=== PATIENT | female | born 1960 | race Caucasian/White ===

== ENCOUNTER 2019-10-24 08:34 | Outpatient (RCR) | payer MEDICAID, SELFPAY | END 2019-10-25 00:01 | LOC: WOUND 08:34 | PROVIDERS: Family Provider Family Medicine; Visit Provider Nurse Practitioner Family | DX: Z09 Encounter for follow-up examination after completed treatment for conditions other than malignant neoplasm (principal) | CPT/HCPCS: 29581 ×4; 99212 ==

== ENCOUNTER 2019-11-22 07:56 | Outpatient (RCR) | payer MEDICAID, SELFPAY | END 2019-11-25 23:59 | disposition home or self-care (01) | LOC: WOUND 07:56 | PROVIDERS: Family Provider Family Medicine; PCP Family Medicine; Visit Provider Thoracic Surgery (Cardiothoracic Vascular Surgery) | DX: I87.2 Venous insufficiency (chronic) (peripheral) (principal); L97.812 Non-pressure chronic ulcer of other part of right lower leg with fat layer exposed | CPT/HCPCS: 11042; 11045; 29581; 99214 ==

== ENCOUNTER 2019-12-21 08:31 | Outpatient (RCR) | payer MEDICAID, SELFPAY | END 2019-12-24 23:59 | disposition home or self-care (01) | LOC: WOUND 08:31 | PROVIDERS: Family Provider Family Medicine; PCP Family Medicine; Visit Provider Nurse Practitioner Family | DX: I87.2 Venous insufficiency (chronic) (peripheral) (principal); L97.812 Non-pressure chronic ulcer of other part of right lower leg with fat layer exposed; L97.822 Non-pressure chronic ulcer of other part of left lower leg with fat layer exposed | CPT/HCPCS: 29581; 99214 ==

== ENCOUNTER 2020-01-18 08:41 | Outpatient (RCR) | payer MEDICAID, SELFPAY | END 2020-01-24 23:59 | disposition home or self-care (01) | LOC: WOUND 08:41 | PROVIDERS: Family Provider Family Medicine; PCP Family Medicine; Visit Provider Nurse Practitioner Family | DX: L02.416 Cutaneous abscess of left lower limb (principal) | CPT/HCPCS: 11042; 29581; 99211; 99212; L4387 ==

== ENCOUNTER 2020-02-22 08:08 | Outpatient (RCR) | payer MEDICAID, SELFPAY | END 2020-02-23 23:59 | disposition home or self-care (01) | LOC: WOUND 08:08 | PROVIDERS: Family Provider Family Medicine; PCP Family Medicine; Visit Provider Thoracic Surgery (Cardiothoracic Vascular Surgery) | DX: I87.2 Venous insufficiency (chronic) (peripheral) (principal); L97.822 Non-pressure chronic ulcer of other part of left lower leg with fat layer exposed; L02.416 Cutaneous abscess of left lower limb | CPT/HCPCS: 11042 ==

== ENCOUNTER 2020-02-29 08:47 | Outpatient (CLI) | payer MEDICAID, SELFPAY | END 2020-02-29 08:48 | disposition home or self-care (01) | LOC: WOUND 08:47 | PROVIDERS: Family Provider Family Medicine; PCP Family Medicine; Visit Provider Thoracic Surgery (Cardiothoracic Vascular Surgery) | DX: I87.2 Venous insufficiency (chronic) (peripheral) (principal); L97.822 Non-pressure chronic ulcer of other part of left lower leg with fat layer exposed; L97.812 Non-pressure chronic ulcer of other part of right lower leg with fat layer exposed | CPT/HCPCS: 11042 ==

== ENCOUNTER 2020-03-07 08:38 | Outpatient (CLI) | payer MEDICAID, SELFPAY | END 2020-03-07 08:39 | disposition home or self-care (01) | LOC: WOUND 08:39 | PROVIDERS: Family Provider Family Medicine; PCP Family Medicine; Visit Provider Thoracic Surgery (Cardiothoracic Vascular Surgery) | DX: I87.2 Venous insufficiency (chronic) (peripheral) (principal); L97.822 Non-pressure chronic ulcer of other part of left lower leg with fat layer exposed; L97.812 Non-pressure chronic ulcer of other part of right lower leg with fat layer exposed | CPT/HCPCS: 11042 ==

== ENCOUNTER 2020-03-14 08:23 | Outpatient (CLI) | payer MEDICAID, SELFPAY | END 2020-03-14 08:24 | disposition home or self-care (01) | LOC: WOUND 08:24 | PROVIDERS: Family Provider Family Medicine; PCP Family Medicine; Visit Provider Thoracic Surgery (Cardiothoracic Vascular Surgery) | DX: I87.2 Venous insufficiency (chronic) (peripheral) (principal); L97.822 Non-pressure chronic ulcer of other part of left lower leg with fat layer exposed | CPT/HCPCS: 11042 ==

== ENCOUNTER 2020-03-21 08:29 | Outpatient (RCR) | payer MEDICAID, SELFPAY | END 2020-03-25 23:59 | disposition home or self-care (01) | LOC: WOUND 08:29 | PROVIDERS: Family Provider Family Medicine; PCP Family Medicine; Visit Provider Thoracic Surgery (Cardiothoracic Vascular Surgery) | DX: I87.2 Venous insufficiency (chronic) (peripheral) (principal); L97.822 Non-pressure chronic ulcer of other part of left lower leg with fat layer exposed | CPT/HCPCS: 11042 ==

== ENCOUNTER 2020-03-28 08:24 | Outpatient (CLI) | payer MEDICAID, SELFPAY | END 2020-03-28 08:25 | disposition home or self-care (01) | LOC: WOUND 08:25 | PROVIDERS: Family Provider Family Medicine; PCP Family Medicine; Visit Provider Thoracic Surgery (Cardiothoracic Vascular Surgery) | DX: I87.2 Venous insufficiency (chronic) (peripheral) (principal); L97.822 Non-pressure chronic ulcer of other part of left lower leg with fat layer exposed | CPT/HCPCS: 97597; A6530; A6545 ==

== ENCOUNTER 2020-04-04 08:32 | Outpatient (CLI) | payer MEDICAID, SELFPAY | END 2020-04-04 08:33 | disposition home or self-care (01) | LOC: WOUND 08:33 | PROVIDERS: Family Provider Family Medicine; PCP Family Medicine; Visit Provider Thoracic Surgery (Cardiothoracic Vascular Surgery) | DX: I87.2 Venous insufficiency (chronic) (peripheral) (principal); L97.822 Non-pressure chronic ulcer of other part of left lower leg with fat layer exposed | CPT/HCPCS: 97597 ==

== ENCOUNTER 2020-04-11 08:27 | Outpatient (CLI) | payer MEDICAID, SELFPAY | END 2020-04-11 08:28 | disposition home or self-care (01) | LOC: WOUND 08:30 | PROVIDERS: Family Provider Family Medicine; PCP Family Medicine; Visit Provider Thoracic Surgery (Cardiothoracic Vascular Surgery) | DX: Z09 Encounter for follow-up examination after completed treatment for conditions other than malignant neoplasm (principal) | CPT/HCPCS: 99212 ==

== ENCOUNTER 2020-05-02 15:27 | Outpatient (CLI) | payer MEDICAID, SELFPAY | END 2020-05-02 15:28 | disposition home or self-care (01) | LOC: WOUND 15:27 | PROVIDERS: Family Provider Family Medicine; PCP Family Medicine; Visit Provider Thoracic Surgery (Cardiothoracic Vascular Surgery) | DX: I87.2 Venous insufficiency (chronic) (peripheral) (principal); L97.822 Non-pressure chronic ulcer of other part of left lower leg with fat layer exposed | CPT/HCPCS: 97597 ==

== ENCOUNTER 2020-05-09 14:36 | Outpatient (CLI) | payer MEDICAID, SELFPAY | END 2020-05-09 14:37 | disposition home or self-care (01) | LOC: WOUND 14:39 | PROVIDERS: Family Provider Family Medicine; PCP Family Medicine; Visit Provider Emergency Medicine | DX: Z51.89 Encounter for other specified aftercare (principal) | CPT/HCPCS: 29581; 99213 ==

== ENCOUNTER 2020-05-16 13:04 | Outpatient (CLI) | payer MEDICAID, SELFPAY | END 2020-05-16 13:05 | disposition home or self-care (01) | LOC: WOUND 13:05 | PROVIDERS: Family Provider Family Medicine; PCP Family Medicine; Visit Provider Emergency Medicine | DX: I87.2 Venous insufficiency (chronic) (peripheral) (principal); L97.822 Non-pressure chronic ulcer of other part of left lower leg with fat layer exposed | CPT/HCPCS: 29581 ==

== ENCOUNTER 2020-05-23 13:22 | Outpatient (CLI) | payer MEDICAID, SELFPAY | END 2020-05-23 13:23 | disposition home or self-care (01) | LOC: WOUND 13:32 | PROVIDERS: Family Provider Family Medicine; PCP Family Medicine; Visit Provider Emergency Medicine | DX: I87.2 Venous insufficiency (chronic) (peripheral) (principal); L97.822 Non-pressure chronic ulcer of other part of left lower leg with fat layer exposed | CPT/HCPCS: 11042 ==

== ENCOUNTER 2020-05-30 09:38 | Outpatient (CLI) | payer MEDICAID, SELFPAY | END 2020-05-30 09:39 | disposition home or self-care (01) | LOC: WOUND 09:38 | PROVIDERS: Family Provider Family Medicine; PCP Family Medicine; Visit Provider Nurse Practitioner Family | DX: Z09 Encounter for follow-up examination after completed treatment for conditions other than malignant neoplasm (principal) | CPT/HCPCS: 29581 ==

== ENCOUNTER → 2020-06-04 12:14 | Outpatient (BNVA) | payer MEDICAID, SELFPAY | PROVIDERS: Family Provider Family Medicine; PCP Family Medicine; Visit Provider Family Medicine | DX: H66.001 Acute suppurative otitis media without spontaneous rupture of ear drum, right ear (principal); E78.5 Hyperlipidemia, unspecified; I73.9 Peripheral vascular disease, unspecified | CPT/HCPCS: 80053; 80061; 84443; 85025 ==

== ENCOUNTER 2020-06-06 08:38 | Outpatient (CLI) | payer MEDICAID, SELFPAY | END 2020-06-06 08:39 | disposition home or self-care (01) | LOC: WOUND 08:40 | PROVIDERS: Family Provider Family Medicine; PCP Family Medicine; Visit Provider Thoracic Surgery (Cardiothoracic Vascular Surgery) | DX: I87.2 Venous insufficiency (chronic) (peripheral) (principal); L97.522 Non-pressure chronic ulcer of other part of left foot with fat layer exposed | CPT/HCPCS: 29581 ==

== ENCOUNTER 2020-07-01 14:45 | Emergency (ER) | payer MEDICAID, SELFPAY ==
[2020-07-01 14:52] VITALS: BP 159/95; PULSE 85; RESP 16; TEMP 36.4; O2SAT 98; BMI 53.1
--- NOTE | 2020-07-01 14:53 | XRR_ITS ---
PROCEDURE INFORMATION: Exam: XR Left Knee Exam date and time: 07/01/2020 3:19 PM Age: 60 years old Clinical indication: Pain and injury or trauma; Injury history: Not specified; Initial encounter; Blunt trauma; Knee; Left; Additional info: Injury/pain TECHNIQUE: Imaging protocol: XR Left knee. Views: 3 views. COMPARISON: CT Low Extremity w LEFT [id number] 06/26/2017 11:18 PM FINDINGS: Bones/joints: There is a moderate loss of joint space seen within the medial compartment of the left knee compatible with degenerative joint disease. Soft tissues: Normal. XR/XR knee LT 3V* [id number] IMPRESSION: There are no acute osseous findings.
--- NOTE | 2020-07-01 14:53 | W.ED.LOWEXIN ---
HPI - Extremity Injury (Lower) General: Chief Complaint: Extremity Injury, Lower Stated Complaint: fall/left knee pain Time Seen by Provider: 07/01/20 14:49 Source: patient Mode of arrival: wheelchair Limitations: no limitations History of Present Illness: HPI Narrative: Patient is a 60-year-old morbidly obese female here for complaints of a left knee injury that happened yesterday. Patient tells me she was in her home when her shoe got caught on the lip of an uneven surface causing her to fall. Patient states she caught herself but states her left knee jammed into or between 2 objects. She has no other complaints. There were no other injury sustained during the fall. She has continued to be ambulatory on the knee-just with pain. MD complaint: knee injury Place: home Relieving factors: immobilization Exacerbating factors: weight bearing, movement and palpation Context: fall Other symptoms: none Review of Systems Musc: Reports: joint pain (L knee pain) PFS ED PFSH: Medical History (Updated 07/01/20 @ 15:29 by CHRISTIANE Nava) DJD (degenerative joint disease), lumbar DVT (deep venous thrombosis) Dyslipidemia History of DVT of lower extremity HTN (hypertension) Narcolepsy Obesity BROWN (obstructive sleep apnea) Surgical History Post corneal transplant S/P section S/P IVC filter Status post tubal ligation Family History Other Cancer Diabetes Hyperlipidemia Hypertension Stroke Social History Smoking and tobacco status: current every day smoker cigarettes [ Other cigarette details: she is working on quitting ] Second hand smoke exposure: No Smoking risk assessment/counseling performed?: Yes Alcohol intake: never Lives independently: Yes Household members: spouse Marital status: Current occupational status: disabled Physical Exam Const: COMMON NORMALS: no acute distress, patient oriented x3, no limitations and alert NUTRITIONAL APPEARANCE: obese morbidly obese (BMI > 50) Extremity: GENERAL: Yes normal exam except as noted RIGHT LOWER EXTREMITY: Yes knee joint (TTP lateral knee; exam hindered by pts morbid obesity) Right knee: Yes neurovascular exam (normal) Neuro: COMMON NORMALS: patient oriented x3, moves all extremities, no focal motor deficits and no sensory deficits noted SENSORIUM/ORIENTATION: Yes alert Skin: COMMON NORMALS: no rashes or lesions noted GENERAL SKIN EXAM: no rashes or lesions noted Course Vital Signs: Vital signs: Vital Signs Temperature 98.2 F 07/01/20 16:05 Pulse Rate 75 07/01/20 16:05 Respiratory Rate 16 07/01/20 16:05 Blood Pressure 174/101 07/01/20 16:05 Pulse Oximetry 98 07/01/20 16:05 MDM - Extremity Injury (Lower) Imaging Data^: XR L knee: My impression: no acute fxs/dislocations visualized Discharge Plan Discharge Patient Disposition: Home Clinical Impression: Injury of left knee Qualifiers: Encounter type: initial encounter Qualified Code(s): S89.92XA - Unspecified injury of left lower leg, initial encounter Condition: Stable Prescriptions: No Action aspirin 325 mg tablet 325 mg PO DAILY RF: 0 (DME) Toe sleeve See Rx Instructions .Route .MEDSUPPLY Qty: 1 RF: 0 ceftriaxone 1 gram recon soln 1 gm IM ONCE Qty: 1 RF: 0 lidocaine (PF) 20 mg/mL (2 %) solution 20 mg IM ONCE Qty: 2 RF: 0 cefdinir 300 mg capsule 300 mg PO BID Qty: 20 RF: 0 fluticasone propionate [Flonase Allergy Relief] 50 mcg/actuation spray,suspension 1 spray INTRANASAL DAILY RF: 0 Saccharomyces boulardii [Daily Probiotic (S. boulardii)] 250 mg capsule 250 mg PO BID RF: 0 amoxicillin-pot clavulanate [Augmentin] 875-125 mg tablet 1 tab PO BID 10 Days Qty: 20 RF: 0 Discharge Orders: Discharge Order (Routine); Ordered 07/01/20 Ordered By: Amy Johnston Referrals: Roberta Low MD [Primary Care Provider] - Patient Instructions: Knee Sprain (ED), Knee Pain (ED), RICE Therapy (ED) Activity Restrictions/Additional Instructions: Weightbearing as tolerated on the knee. You may ice, elevate, and compress the extremity as we discussed. Please follow-up with primary care in approximately a week for continued pain. Please use your walker until pain begins to improve to decrease the likelihood of a fall. Discharge Date/Time: 07/01/20 16:07 Coding Level of Care Code ED Sewage Plant Supervisor for Chg Fwd Exam Expanded Problem Focused
[2020-07-01 16:05] VITALS: BP 174/101; PULSE 75; RESP 16; TEMP 36.8; O2SAT 98
== END 2020-07-01 16:07 | disposition home or self-care (01) ==
PROVIDERS: Emergency Provider Physician Assistant; PCP Family Medicine
DX: M25.562 Pain in left knee (principal); S89.92XA Unspecified injury of left lower leg, initial encounter; Z79.82 Long term (current) use of aspirin; W18.09XA Striking against other object with subsequent fall, initial encounter; E78.5 Hyperlipidemia, unspecified; I10 Essential (primary) hypertension; F17.210 Nicotine dependence, cigarettes, uncomplicated
CPT/HCPCS: 12345; 73562; 99281; 99282

== ENCOUNTER → 2020-07-24 16:54 | Outpatient (BNVA) | payer MEDICAID, SELFPAY | PROVIDERS: PCP Family Medicine; Visit Provider Nurse Practitioner Family | DX: L03.116 Cellulitis of left lower limb (principal); M15.9 Polyosteoarthritis, unspecified; R42 Dizziness and giddiness; H66.006 Acute suppurative otitis media without spontaneous rupture of ear drum, recurrent, bilateral | CPT/HCPCS: 84450; 87070; 87077; 87186 ==

== ENCOUNTER 2020-08-01 14:46 | Outpatient (CLI) | payer MEDICAID, SELFPAY | END 2020-08-01 14:47 | disposition home or self-care (01) | LOC: WOUND 14:46 | PROVIDERS: PCP Family Medicine; Visit Provider Thoracic Surgery (Cardiothoracic Vascular Surgery) | DX: I87.2 Venous insufficiency (chronic) (peripheral) (principal); L97.822 Non-pressure chronic ulcer of other part of left lower leg with fat layer exposed; L97.812 Non-pressure chronic ulcer of other part of right lower leg with fat layer exposed | CPT/HCPCS: 11042; G0463 ==

== ENCOUNTER 2020-08-03 10:55 | Outpatient (CLI) | payer MEDICAID, SELFPAY | END 2020-08-03 10:56 | disposition home or self-care (01) | LOC: WOUND 10:55 | PROVIDERS: PCP Family Medicine; Visit Provider Surgery | DX: I87.2 Venous insufficiency (chronic) (peripheral) (principal); L97.822 Non-pressure chronic ulcer of other part of left lower leg with fat layer exposed; L97.819 Non-pressure chronic ulcer of other part of right lower leg with unspecified severity | CPT/HCPCS: 29581 ==

== ENCOUNTER 2020-08-07 10:55 | Outpatient (CLI) | payer MEDICAID, SELFPAY | END 2020-08-07 10:56 | disposition home or self-care (01) | LOC: WOUND 11:01 | PROVIDERS: PCP Family Medicine; Visit Provider Thoracic Surgery (Cardiothoracic Vascular Surgery) | DX: I87.2 Venous insufficiency (chronic) (peripheral) (principal); L97.822 Non-pressure chronic ulcer of other part of left lower leg with fat layer exposed; L97.812 Non-pressure chronic ulcer of other part of right lower leg with fat layer exposed | CPT/HCPCS: 11042 ==

== ENCOUNTER 2020-08-14 09:59 | Outpatient (CLI) | payer MEDICAID, SELFPAY | END 2020-08-14 10:00 | disposition home or self-care (01) | LOC: WOUND 10:00 | PROVIDERS: PCP Family Medicine; Visit Provider Thoracic Surgery (Cardiothoracic Vascular Surgery) | DX: I87.2 Venous insufficiency (chronic) (peripheral) (principal); L97.822 Non-pressure chronic ulcer of other part of left lower leg with fat layer exposed | CPT/HCPCS: 11042 ==

== ENCOUNTER 2020-08-21 10:10 | Outpatient (CLI) | payer MEDICAID, SELFPAY | END 2020-08-21 10:11 | disposition home or self-care (01) | LOC: WOUND 10:10 | PROVIDERS: PCP Family Medicine; Visit Provider Thoracic Surgery (Cardiothoracic Vascular Surgery) | DX: I87.2 Venous insufficiency (chronic) (peripheral) (principal); L97.822 Non-pressure chronic ulcer of other part of left lower leg with fat layer exposed | CPT/HCPCS: 29581 ==

== ENCOUNTER 2020-08-28 09:48 | Outpatient (CLI) | payer MEDICAID, SELFPAY | END 2020-08-28 09:49 | disposition home or self-care (01) | LOC: WOUND 09:49 | PROVIDERS: PCP Family Medicine; Visit Provider Thoracic Surgery (Cardiothoracic Vascular Surgery) | DX: I87.2 Venous insufficiency (chronic) (peripheral) (principal); L97.822 Non-pressure chronic ulcer of other part of left lower leg with fat layer exposed | CPT/HCPCS: 11042 ==

== ENCOUNTER 2020-09-04 10:32 | Outpatient (CLI) | payer MEDICAID, SELFPAY | END 2020-09-04 10:33 | disposition home or self-care (01) | LOC: WOUND 10:32 | PROVIDERS: PCP Family Medicine; Visit Provider Thoracic Surgery (Cardiothoracic Vascular Surgery) | DX: I87.2 Venous insufficiency (chronic) (peripheral) (principal); L97.822 Non-pressure chronic ulcer of other part of left lower leg with fat layer exposed | CPT/HCPCS: 11042 ==

== ENCOUNTER 2020-09-11 10:55 | Outpatient (CLI) | payer MEDICAID, SELFPAY | END 2020-09-11 10:56 | disposition home or self-care (01) | LOC: WOUND 10:58 | PROVIDERS: PCP Family Medicine; Visit Provider Nurse Practitioner Family | DX: I87.2 Venous insufficiency (chronic) (peripheral) (principal); L97.822 Non-pressure chronic ulcer of other part of left lower leg with fat layer exposed; L97.522 Non-pressure chronic ulcer of other part of left foot with fat layer exposed | CPT/HCPCS: 11042 ==

== ENCOUNTER 2020-09-18 10:57 | Outpatient (CLI) | payer MEDICAID, SELFPAY | END 2020-09-18 10:58 | disposition home or self-care (01) | LOC: WOUND 10:57 | PROVIDERS: PCP Family Medicine; Visit Provider Nurse Practitioner Family | DX: I87.2 Venous insufficiency (chronic) (peripheral) (principal); L97.822 Non-pressure chronic ulcer of other part of left lower leg with fat layer exposed; L97.522 Non-pressure chronic ulcer of other part of left foot with fat layer exposed | CPT/HCPCS: 11042 ==

== ENCOUNTER 2020-09-25 09:28 | Outpatient (CLI) | payer MEDICAID, SELFPAY | END 2020-09-25 09:29 | disposition home or self-care (01) | LOC: WOUND 09:29 | PROVIDERS: PCP Family Medicine; Visit Provider Thoracic Surgery (Cardiothoracic Vascular Surgery) | DX: I87.2 Venous insufficiency (chronic) (peripheral) (principal); L97.822 Non-pressure chronic ulcer of other part of left lower leg with fat layer exposed; L97.522 Non-pressure chronic ulcer of other part of left foot with fat layer exposed | CPT/HCPCS: 11042 ==

== ENCOUNTER 2020-10-01 15:18 | Outpatient (CLI) | payer MEDICAID, SELFPAY | END 2020-10-01 15:19 | disposition home or self-care (01) | LOC: WOUND 15:19 | PROVIDERS: PCP Family Medicine; Visit Provider Nurse Practitioner Family | DX: I87.2 Venous insufficiency (chronic) (peripheral) (principal); L97.822 Non-pressure chronic ulcer of other part of left lower leg with fat layer exposed; L97.522 Non-pressure chronic ulcer of other part of left foot with fat layer exposed | CPT/HCPCS: 11042; 87070; 87176; 87205 ==

== ENCOUNTER 2020-10-02 08:57 | Outpatient (CLI) | payer MEDICAID, SELFPAY | END 2020-10-02 08:58 | disposition home or self-care (01) | LOC: WOUND 08:57 | PROVIDERS: PCP Family Medicine; Visit Provider Thoracic Surgery (Cardiothoracic Vascular Surgery) | DX: I87.2 Venous insufficiency (chronic) (peripheral) (principal); L97.822 Non-pressure chronic ulcer of other part of left lower leg with fat layer exposed | CPT/HCPCS: 29581 ==

== ENCOUNTER 2020-10-08 13:08 | Outpatient (CLI) | payer MEDICAID, SELFPAY | END 2020-10-08 13:09 | disposition home or self-care (01) | LOC: WOUND 13:08 | PROVIDERS: PCP Family Medicine; Visit Provider Nurse Practitioner Family | DX: I87.2 Venous insufficiency (chronic) (peripheral) (principal); L97.822 Non-pressure chronic ulcer of other part of left lower leg with fat layer exposed; L97.522 Non-pressure chronic ulcer of other part of left foot with fat layer exposed | CPT/HCPCS: 11042 ==

== ENCOUNTER 2020-10-16 09:25 | Outpatient (CLI) | payer MEDICAID, SELFPAY | END 2020-10-16 09:26 | disposition home or self-care (01) | LOC: WOUND 09:25 | PROVIDERS: PCP Family Medicine; Visit Provider Nurse Practitioner Family | DX: I87.2 Venous insufficiency (chronic) (peripheral) (principal); L97.822 Non-pressure chronic ulcer of other part of left lower leg with fat layer exposed; L97.811 Non-pressure chronic ulcer of other part of right lower leg limited to breakdown of skin; I10 Essential (primary) hypertension; I73.9 Peripheral vascular disease, unspecified | CPT/HCPCS: 11042 ==

== ENCOUNTER 2020-10-23 09:50 | Outpatient (CLI) | payer MEDICAID, SELFPAY | END 2020-10-23 09:51 | disposition home or self-care (01) | LOC: WOUND 09:51 | PROVIDERS: PCP Family Medicine; Visit Provider Nurse Practitioner Family | DX: I87.2 Venous insufficiency (chronic) (peripheral) (principal); L97.812 Non-pressure chronic ulcer of other part of right lower leg with fat layer exposed; L97.822 Non-pressure chronic ulcer of other part of left lower leg with fat layer exposed | CPT/HCPCS: 29581 ==

== ENCOUNTER 2020-10-30 09:09 | Outpatient (CLI) | payer MEDICAID, SELFPAY | END 2020-10-30 09:10 | disposition home or self-care (01) | LOC: WOUND 09:09 | PROVIDERS: PCP Family Medicine; Visit Provider Thoracic Surgery (Cardiothoracic Vascular Surgery) | DX: I87.2 Venous insufficiency (chronic) (peripheral) (principal); L97.822 Non-pressure chronic ulcer of other part of left lower leg with fat layer exposed; L97.812 Non-pressure chronic ulcer of other part of right lower leg with fat layer exposed | CPT/HCPCS: 11042 ==

== ENCOUNTER 2020-11-06 08:59 | Outpatient (CLI) | payer MEDICAID, SELFPAY | END 2020-11-06 09:00 | disposition home or self-care (01) | LOC: WOUND 09:00 | PROVIDERS: PCP Family Medicine; Visit Provider Thoracic Surgery (Cardiothoracic Vascular Surgery) | DX: I87.2 Venous insufficiency (chronic) (peripheral) (principal); L97.812 Non-pressure chronic ulcer of other part of right lower leg with fat layer exposed; L97.822 Non-pressure chronic ulcer of other part of left lower leg with fat layer exposed | CPT/HCPCS: 11042 ==

== ENCOUNTER 2020-11-13 09:00 | Outpatient (CLI) | payer MEDICAID, SELFPAY | END 2020-11-13 09:01 | disposition home or self-care (01) | LOC: WOUND 09:00 | PROVIDERS: PCP Family Medicine; Visit Provider Thoracic Surgery (Cardiothoracic Vascular Surgery) | DX: I87.2 Venous insufficiency (chronic) (peripheral) (principal); L97.822 Non-pressure chronic ulcer of other part of left lower leg with fat layer exposed; L97.812 Non-pressure chronic ulcer of other part of right lower leg with fat layer exposed | CPT/HCPCS: 29581 ==

== ENCOUNTER 2020-11-27 08:58 | Outpatient (CLI) | payer MEDICAID, SELFPAY | END 2020-11-27 08:59 | disposition home or self-care (01) | LOC: WOUND 08:58 | PROVIDERS: PCP Family Medicine; Visit Provider Thoracic Surgery (Cardiothoracic Vascular Surgery) | DX: Z09 Encounter for follow-up examination after completed treatment for conditions other than malignant neoplasm (principal) | CPT/HCPCS: 99212 ==

== ENCOUNTER 2020-12-20 14:43 | Outpatient (CLI) | payer MEDICAID, SELFPAY | END 2020-12-20 14:44 | disposition home or self-care (01) | LOC: WOUND 14:44 | PROVIDERS: PCP Family Medicine; Visit Provider Thoracic Surgery (Cardiothoracic Vascular Surgery) | DX: I87.2 Venous insufficiency (chronic) (peripheral) (principal); L97.822 Non-pressure chronic ulcer of other part of left lower leg with fat layer exposed | CPT/HCPCS: 11042 ==

== ENCOUNTER 2020-12-27 14:34 | Outpatient (CLI) | payer MEDICAID, SELFPAY | END 2020-12-27 14:35 | disposition home or self-care (01) | LOC: WOUND 14:34 | PROVIDERS: PCP Family Medicine; Visit Provider Thoracic Surgery (Cardiothoracic Vascular Surgery) | DX: I87.2 Venous insufficiency (chronic) (peripheral) (principal); L97.522 Non-pressure chronic ulcer of other part of left foot with fat layer exposed | CPT/HCPCS: 11042 ==

== ENCOUNTER 2020-12-31 14:46 | Outpatient (CLI) | payer MEDICAID, SELFPAY | END 2020-12-31 14:47 | disposition home or self-care (01) | LOC: WOUND 14:46 | PROVIDERS: PCP Family Medicine; Visit Provider Thoracic Surgery (Cardiothoracic Vascular Surgery) | DX: I87.2 Venous insufficiency (chronic) (peripheral) (principal); L97.822 Non-pressure chronic ulcer of other part of left lower leg with fat layer exposed | CPT/HCPCS: 11042; A6545 ==

== ENCOUNTER 2021-01-07 14:44 | Outpatient (CLI) | payer MEDICAID, SELFPAY | END 2021-01-07 14:45 | disposition home or self-care (01) | LOC: WOUND 14:45 | PROVIDERS: PCP Family Medicine; Visit Provider Nurse Practitioner Family | DX: I87.2 Venous insufficiency (chronic) (peripheral) (principal); L97.822 Non-pressure chronic ulcer of other part of left lower leg with fat layer exposed | CPT/HCPCS: 11042 ==

== ENCOUNTER 2021-01-14 14:36 | Outpatient (CLI) | payer MEDICAID, SELFPAY | END 2021-01-14 14:37 | disposition home or self-care (01) | LOC: WOUND 14:37 | PROVIDERS: PCP Family Medicine; Visit Provider Nurse Practitioner Family | DX: I87.2 Venous insufficiency (chronic) (peripheral) (principal); L97.822 Non-pressure chronic ulcer of other part of left lower leg with fat layer exposed | CPT/HCPCS: 11042 ==

== ENCOUNTER 2021-01-21 13:56 | Outpatient (CLI) | payer MEDICAID, SELFPAY | END 2021-01-21 13:57 | disposition home or self-care (01) | LOC: WOUND 13:58 | PROVIDERS: PCP Family Medicine; Visit Provider Nurse Practitioner Family | DX: I87.2 Venous insufficiency (chronic) (peripheral) (principal); L97.822 Non-pressure chronic ulcer of other part of left lower leg with fat layer exposed | CPT/HCPCS: 11042 ==

== ENCOUNTER 2021-01-31 13:56 | Outpatient (CLI) | payer MEDICAID, SELFPAY | END 2021-01-31 13:57 | disposition home or self-care (01) | LOC: WOUND 13:57 | PROVIDERS: PCP Family Medicine; Visit Provider Thoracic Surgery (Cardiothoracic Vascular Surgery) | DX: I87.2 Venous insufficiency (chronic) (peripheral) (principal); L97.822 Non-pressure chronic ulcer of other part of left lower leg with fat layer exposed | CPT/HCPCS: 11042 ==

== ENCOUNTER 2021-02-07 13:26 | Outpatient (CLI) | payer MEDICAID, SELFPAY | END 2021-02-07 13:27 | disposition home or self-care (01) | LOC: WOUND 13:27 | PROVIDERS: PCP Family Medicine; Visit Provider Thoracic Surgery (Cardiothoracic Vascular Surgery) | DX: I87.2 Venous insufficiency (chronic) (peripheral) (principal); L97.822 Non-pressure chronic ulcer of other part of left lower leg with fat layer exposed | CPT/HCPCS: 11042 ==

== ENCOUNTER 2021-02-14 14:48 | Outpatient (RCR) | payer MEDICAID, SELFPAY | END 2021-02-22 23:59 | disposition home or self-care (01) | LOC: WOUND 14:48 | PROVIDERS: PCP Family Medicine; Visit Provider Thoracic Surgery (Cardiothoracic Vascular Surgery) | DX: I87.2 Venous insufficiency (chronic) (peripheral) (principal); L97.822 Non-pressure chronic ulcer of other part of left lower leg with fat layer exposed | CPT/HCPCS: 11042 ==

== ENCOUNTER 2021-02-21 13:53 | Outpatient (CLI) | payer MEDICAID, SELFPAY | END 2021-02-21 13:54 | disposition home or self-care (01) | LOC: WOUND 13:54 | PROVIDERS: PCP Family Medicine; Visit Provider Nurse Practitioner Family | DX: I87.2 Venous insufficiency (chronic) (peripheral) (principal); L97.822 Non-pressure chronic ulcer of other part of left lower leg with fat layer exposed | CPT/HCPCS: 11042 ==

== ENCOUNTER 2021-02-28 15:04 | Outpatient (CLI) | payer MEDICAID, SELFPAY | END 2021-02-28 15:05 | disposition home or self-care (01) | LOC: WOUND 15:05 | PROVIDERS: PCP Family Medicine; Visit Provider Thoracic Surgery (Cardiothoracic Vascular Surgery) | DX: I87.2 Venous insufficiency (chronic) (peripheral) (principal); L97.822 Non-pressure chronic ulcer of other part of left lower leg with fat layer exposed | CPT/HCPCS: 97597 ==

== ENCOUNTER 2021-03-07 14:53 | Outpatient (CLI) | payer MEDICAID, SELFPAY | END 2021-03-07 14:54 | disposition home or self-care (01) | LOC: WOUND 14:54 | PROVIDERS: PCP Family Medicine; Visit Provider Thoracic Surgery (Cardiothoracic Vascular Surgery) | DX: Z09 Encounter for follow-up examination after completed treatment for conditions other than malignant neoplasm (principal) | CPT/HCPCS: 29581 ==

== ENCOUNTER 2021-03-14 14:52 | Outpatient (CLI) | payer MEDICAID, SELFPAY | END 2021-03-14 14:53 | disposition home or self-care (01) | LOC: WOUND 14:52 | PROVIDERS: PCP Family Medicine; Visit Provider Thoracic Surgery (Cardiothoracic Vascular Surgery) | DX: Z09 Encounter for follow-up examination after completed treatment for conditions other than malignant neoplasm (principal) | CPT/HCPCS: 99212 ==

== ENCOUNTER 2021-04-09 08:25 | Outpatient (CLI) | payer MEDICAID, SELFPAY | END 2021-04-09 08:26 | disposition home or self-care (01) | LOC: WOUND 08:25 | PROVIDERS: PCP Family Medicine; Visit Provider Thoracic Surgery (Cardiothoracic Vascular Surgery) | DX: Z09 Encounter for follow-up examination after completed treatment for conditions other than malignant neoplasm (principal) | CPT/HCPCS: 99212 ==

== ENCOUNTER 2021-05-23 09:58 | Outpatient (CLI) | payer MEDICAID, SELFPAY | END 2021-05-23 09:59 | disposition home or self-care (01) | LOC: WOUND 09:58 | PROVIDERS: PCP Family Medicine; Visit Provider Nurse Practitioner Family | DX: I87.2 Venous insufficiency (chronic) (peripheral) (principal); L97.822 Non-pressure chronic ulcer of other part of left lower leg with fat layer exposed | CPT/HCPCS: 11042 ==

== ENCOUNTER 2021-05-30 10:12 | Outpatient (CLI) | payer MEDICAID, SELFPAY | END 2021-05-30 10:13 | disposition home or self-care (01) | LOC: WOUND 10:12 | PROVIDERS: PCP Family Medicine; Visit Provider Emergency Medicine | DX: I87.2 Venous insufficiency (chronic) (peripheral) (principal); L97.822 Non-pressure chronic ulcer of other part of left lower leg with fat layer exposed; F17.210 Nicotine dependence, cigarettes, uncomplicated | CPT/HCPCS: 11042 ==

== ENCOUNTER 2021-06-06 08:00 | Outpatient (CLI) | payer MEDICAID, SELFPAY | END 2021-06-06 08:01 | disposition home or self-care (01) | LOC: WOUND 08:01 | PROVIDERS: PCP Family Medicine; Visit Provider Emergency Medicine | DX: I87.2 Venous insufficiency (chronic) (peripheral) (principal); L97.822 Non-pressure chronic ulcer of other part of left lower leg with fat layer exposed; F17.210 Nicotine dependence, cigarettes, uncomplicated | CPT/HCPCS: 11042; 87070; 87077; 87176; 87186; 87205; 99212 ==

== ENCOUNTER 2021-06-13 08:22 | Outpatient (CLI) | payer MEDICAID, SELFPAY | END 2021-06-13 08:23 | disposition home or self-care (01) | PROVIDERS: PCP Family Medicine; Visit Provider Nurse Practitioner Family | DX: I87.2 Venous insufficiency (chronic) (peripheral) (principal); L97.822 Non-pressure chronic ulcer of other part of left lower leg with fat layer exposed; F17.210 Nicotine dependence, cigarettes, uncomplicated | CPT/HCPCS: 11042 ==

== ENCOUNTER 2021-06-20 08:35 | Outpatient (CLI) | payer MEDICAID, SELFPAY | END 2021-06-20 08:36 | disposition home or self-care (01) | LOC: WOUND 08:35 | PROVIDERS: PCP Family Medicine; Visit Provider Emergency Medicine | DX: I87.2 Venous insufficiency (chronic) (peripheral) (principal); L97.822 Non-pressure chronic ulcer of other part of left lower leg with fat layer exposed; F17.210 Nicotine dependence, cigarettes, uncomplicated | CPT/HCPCS: 11042; 99212 ==

== ENCOUNTER 2021-06-27 08:31 | Outpatient (CLI) | payer MEDICAID, SELFPAY | END 2021-06-27 08:32 | disposition home or self-care (01) | LOC: WOUND 08:32 | PROVIDERS: PCP Family Medicine; Visit Provider Emergency Medicine | DX: I87.2 Venous insufficiency (chronic) (peripheral) (principal); L97.822 Non-pressure chronic ulcer of other part of left lower leg with fat layer exposed; L97.812 Non-pressure chronic ulcer of other part of right lower leg with fat layer exposed; F17.210 Nicotine dependence, cigarettes, uncomplicated | CPT/HCPCS: 11042 ==

== ENCOUNTER 2021-07-04 08:36 | Outpatient (CLI) | payer MEDICAID, SELFPAY | END 2021-07-04 08:37 | disposition home or self-care (01) | LOC: WOUND 08:37 | PROVIDERS: PCP Family Medicine; Visit Provider Emergency Medicine | DX: I87.2 Venous insufficiency (chronic) (peripheral) (principal); L97.822 Non-pressure chronic ulcer of other part of left lower leg with fat layer exposed; L97.812 Non-pressure chronic ulcer of other part of right lower leg with fat layer exposed; F17.210 Nicotine dependence, cigarettes, uncomplicated | CPT/HCPCS: 11042; 87070; 87077; 87176; 87186; 87205; 99212 ==

== ENCOUNTER 2021-07-08 08:31 | Outpatient (CLI) | payer MEDICAID, SELFPAY | END 2021-07-08 08:32 | disposition home or self-care (01) | LOC: WOUND 08:31 | PROVIDERS: PCP Family Medicine; Visit Provider Emergency Medicine | DX: I87.2 Venous insufficiency (chronic) (peripheral) (principal); L97.822 Non-pressure chronic ulcer of other part of left lower leg with fat layer exposed; L97.819 Non-pressure chronic ulcer of other part of right lower leg with unspecified severity | CPT/HCPCS: 29581 ==

== ENCOUNTER 2021-07-11 08:56 | Outpatient (CLI) | payer MEDICAID, SELFPAY | END 2021-07-11 08:57 | disposition home or self-care (01) | LOC: WOUND 08:56 | PROVIDERS: PCP Family Medicine; Visit Provider Emergency Medicine | DX: I87.2 Venous insufficiency (chronic) (peripheral) (principal); L97.822 Non-pressure chronic ulcer of other part of left lower leg with fat layer exposed; L97.812 Non-pressure chronic ulcer of other part of right lower leg with fat layer exposed; F17.210 Nicotine dependence, cigarettes, uncomplicated | CPT/HCPCS: 11042 ==

== ENCOUNTER 2021-07-18 08:57 | Outpatient (CLI) | payer MEDICAID, SELFPAY | END 2021-07-18 08:58 | disposition home or self-care (01) | LOC: WOUND 08:58 | PROVIDERS: PCP Family Medicine; Visit Provider Emergency Medicine | DX: I87.2 Venous insufficiency (chronic) (peripheral) (principal); L97.822 Non-pressure chronic ulcer of other part of left lower leg with fat layer exposed; L97.812 Non-pressure chronic ulcer of other part of right lower leg with fat layer exposed; F17.210 Nicotine dependence, cigarettes, uncomplicated | CPT/HCPCS: 11042; 11045; 99212 ==

== ENCOUNTER 2021-07-25 09:26 | Outpatient (CLI) | payer MEDICAID, SELFPAY | END 2021-07-25 09:27 | disposition home or self-care (01) | LOC: WOUND 09:27 | PROVIDERS: PCP Family Medicine; Visit Provider Emergency Medicine | DX: I87.2 Venous insufficiency (chronic) (peripheral) (principal); L97.822 Non-pressure chronic ulcer of other part of left lower leg with fat layer exposed; L97.812 Non-pressure chronic ulcer of other part of right lower leg with fat layer exposed; F17.210 Nicotine dependence, cigarettes, uncomplicated | CPT/HCPCS: 11042 ==

== ENCOUNTER 2021-07-29 08:21 | Outpatient (CLI) | payer MEDICAID, SELFPAY | END 2021-07-29 08:22 | disposition home or self-care (01) | LOC: WOUND 08:22 | PROVIDERS: PCP Family Medicine; Visit Provider Emergency Medicine | DX: I87.2 Venous insufficiency (chronic) (peripheral) (principal); L97.822 Non-pressure chronic ulcer of other part of left lower leg with fat layer exposed; L97.819 Non-pressure chronic ulcer of other part of right lower leg with unspecified severity | CPT/HCPCS: 29581 ==

== ENCOUNTER 2021-08-01 08:54 | Outpatient (CLI) | payer MEDICAID, SELFPAY | END 2021-08-01 08:55 | disposition home or self-care (01) | LOC: WOUND 08:54 | PROVIDERS: PCP Family Medicine; Visit Provider Nurse Practitioner Family | DX: I87.2 Venous insufficiency (chronic) (peripheral) (principal); L97.822 Non-pressure chronic ulcer of other part of left lower leg with fat layer exposed; L97.812 Non-pressure chronic ulcer of other part of right lower leg with fat layer exposed; F17.210 Nicotine dependence, cigarettes, uncomplicated | CPT/HCPCS: 11042 ==

== ENCOUNTER 2021-08-05 14:35 | Outpatient (CLI) | payer MEDICAID, SELFPAY | END 2021-08-05 14:36 | disposition home or self-care (01) | LOC: WOUND 14:35 | PROVIDERS: PCP Family Medicine; Visit Provider Emergency Medicine | DX: I87.2 Venous insufficiency (chronic) (peripheral) (principal); L97.822 Non-pressure chronic ulcer of other part of left lower leg with fat layer exposed | CPT/HCPCS: 29581; A6252 ==

== ENCOUNTER 2021-08-08 08:28 | Outpatient (CLI) | payer MEDICAID, SELFPAY | END 2021-08-08 08:29 | disposition home or self-care (01) | LOC: WOUND 08:29 | PROVIDERS: PCP Family Medicine; Visit Provider Emergency Medicine | DX: I87.2 Venous insufficiency (chronic) (peripheral) (principal); L97.822 Non-pressure chronic ulcer of other part of left lower leg with fat layer exposed; L97.812 Non-pressure chronic ulcer of other part of right lower leg with fat layer exposed; F17.210 Nicotine dependence, cigarettes, uncomplicated | CPT/HCPCS: 11042; 87070; 87077; 87176; 87186; 87205 ==

== ENCOUNTER 2021-08-12 15:14 | Outpatient (CLI) | payer MEDICAID, SELFPAY | END 2021-08-12 15:15 | disposition home or self-care (01) | LOC: WOUND 15:15 | PROVIDERS: PCP Family Medicine; Visit Provider Emergency Medicine | DX: I87.2 Venous insufficiency (chronic) (peripheral) (principal); L97.822 Non-pressure chronic ulcer of other part of left lower leg with fat layer exposed; L97.812 Non-pressure chronic ulcer of other part of right lower leg with fat layer exposed; F17.210 Nicotine dependence, cigarettes, uncomplicated | CPT/HCPCS: 11042; 29581 ==

== ENCOUNTER 2021-08-15 09:32 | Outpatient (CLI) | payer MEDICAID, SELFPAY | END 2021-08-15 09:33 | disposition home or self-care (01) | LOC: WOUND 09:33 | PROVIDERS: PCP Family Medicine; Visit Provider Emergency Medicine | DX: I87.2 Venous insufficiency (chronic) (peripheral) (principal); L97.822 Non-pressure chronic ulcer of other part of left lower leg with fat layer exposed; L97.812 Non-pressure chronic ulcer of other part of right lower leg with fat layer exposed ==

== ENCOUNTER 2021-08-19 13:55 | Outpatient (CLI) | payer MEDICAID, SELFPAY | END 2021-08-19 13:56 | disposition home or self-care (01) | LOC: WOUND 13:55 | PROVIDERS: PCP Family Medicine; Visit Provider Nurse Practitioner Family | DX: I87.2 Venous insufficiency (chronic) (peripheral) (principal); L97.822 Non-pressure chronic ulcer of other part of left lower leg with fat layer exposed; L97.812 Non-pressure chronic ulcer of other part of right lower leg with fat layer exposed; F17.210 Nicotine dependence, cigarettes, uncomplicated | CPT/HCPCS: 11042 ==

== ENCOUNTER 2021-08-26 14:43 | Outpatient (CLI) | payer MEDICAID, SELFPAY | END 2021-08-26 14:44 | disposition home or self-care (01) | LOC: WOUND 14:43 | PROVIDERS: PCP Family Medicine; Visit Provider Emergency Medicine | DX: I87.2 Venous insufficiency (chronic) (peripheral) (principal); L97.822 Non-pressure chronic ulcer of other part of left lower leg with fat layer exposed; L97.812 Non-pressure chronic ulcer of other part of right lower leg with fat layer exposed; F17.210 Nicotine dependence, cigarettes, uncomplicated; M06.9 Rheumatoid arthritis, unspecified | CPT/HCPCS: 11042 ==

== ENCOUNTER 2021-08-28 13:53 | Outpatient (CLI) | payer MEDICAID, SELFPAY | END 2021-08-28 13:54 | disposition home or self-care (01) | LOC: WOUND 13:54 | PROVIDERS: PCP Family Medicine; Visit Provider Thoracic Surgery (Cardiothoracic Vascular Surgery) | DX: I87.2 Venous insufficiency (chronic) (peripheral) (principal); L97.822 Non-pressure chronic ulcer of other part of left lower leg with fat layer exposed; L97.812 Non-pressure chronic ulcer of other part of right lower leg with fat layer exposed | CPT/HCPCS: 29581 ==

== ENCOUNTER 2021-09-02 14:44 | Outpatient (CLI) | payer MEDICAID, SELFPAY | END 2021-09-02 14:45 | disposition home or self-care (01) | LOC: WOUND 14:44 | PROVIDERS: PCP Family Medicine; Visit Provider Nurse Practitioner Family | DX: I87.2 Venous insufficiency (chronic) (peripheral) (principal); L97.822 Non-pressure chronic ulcer of other part of left lower leg with fat layer exposed; L97.812 Non-pressure chronic ulcer of other part of right lower leg with fat layer exposed; F17.210 Nicotine dependence, cigarettes, uncomplicated | CPT/HCPCS: 11042 ==

== ENCOUNTER 2021-09-09 14:50 | Outpatient (CLI) | payer MEDICAID, SELFPAY | END 2021-09-09 14:51 | disposition home or self-care (01) | LOC: WOUND 14:51 | PROVIDERS: PCP Family Medicine; Visit Provider Emergency Medicine | DX: I87.2 Venous insufficiency (chronic) (peripheral) (principal); L97.822 Non-pressure chronic ulcer of other part of left lower leg with fat layer exposed; L97.812 Non-pressure chronic ulcer of other part of right lower leg with fat layer exposed; I10 Essential (primary) hypertension; F17.210 Nicotine dependence, cigarettes, uncomplicated | CPT/HCPCS: 11042; 87070; 87077; 87176; 87186; 87205 ==

== ENCOUNTER 2021-09-16 13:57 | Outpatient (CLI) | payer MEDICAID, SELFPAY | END 2021-09-16 13:58 | disposition home or self-care (01) | LOC: WOUND 13:58 | PROVIDERS: PCP Family Medicine; Visit Provider Emergency Medicine | DX: I87.2 Venous insufficiency (chronic) (peripheral) (principal); L97.822 Non-pressure chronic ulcer of other part of left lower leg with fat layer exposed; L97.812 Non-pressure chronic ulcer of other part of right lower leg with fat layer exposed; F17.210 Nicotine dependence, cigarettes, uncomplicated; M06.9 Rheumatoid arthritis, unspecified | CPT/HCPCS: 11043 ==

== ENCOUNTER 2021-09-23 10:35 | Outpatient (CLI) | payer MEDICAID, SELFPAY | END 2021-09-23 10:36 | disposition home or self-care (01) | LOC: WOUND 10:35 | PROVIDERS: PCP Family Medicine; Visit Provider Emergency Medicine | DX: I87.2 Venous insufficiency (chronic) (peripheral) (principal); L97.822 Non-pressure chronic ulcer of other part of left lower leg with fat layer exposed; L97.812 Non-pressure chronic ulcer of other part of right lower leg with fat layer exposed; F17.210 Nicotine dependence, cigarettes, uncomplicated | CPT/HCPCS: 11042; A6252 ==

== ENCOUNTER 2021-09-30 09:00 | Outpatient (CLI) | payer MEDICAID, SELFPAY | END 2021-09-30 09:01 | disposition home or self-care (01) | LOC: WOUND 09:00 | PROVIDERS: PCP Family Medicine; Visit Provider Emergency Medicine | DX: I87.2 Venous insufficiency (chronic) (peripheral) (principal); L97.822 Non-pressure chronic ulcer of other part of left lower leg with fat layer exposed; L97.812 Non-pressure chronic ulcer of other part of right lower leg with fat layer exposed; F17.210 Nicotine dependence, cigarettes, uncomplicated | CPT/HCPCS: 11042; A6252 ==

== ENCOUNTER 2021-10-07 13:12 | Outpatient (CLI) | payer MEDICAID, SELFPAY | END 2021-10-07 13:13 | disposition home or self-care (01) | LOC: WOUND 13:12 | PROVIDERS: PCP Family Medicine; Visit Provider Emergency Medicine | DX: I87.2 Venous insufficiency (chronic) (peripheral) (principal); L97.812 Non-pressure chronic ulcer of other part of right lower leg with fat layer exposed; L97.822 Non-pressure chronic ulcer of other part of left lower leg with fat layer exposed; F17.210 Nicotine dependence, cigarettes, uncomplicated | CPT/HCPCS: 97597; A6252 ==

== ENCOUNTER 2021-10-14 13:03 | Outpatient (CLI) | payer MEDICAID, SELFPAY | END 2021-10-14 13:04 | disposition home or self-care (01) | LOC: WOUND 13:04 | PROVIDERS: PCP Family Medicine; Visit Provider Nurse Practitioner Family | DX: I96 Gangrene, not elsewhere classified (principal); I87.2 Venous insufficiency (chronic) (peripheral); L97.822 Non-pressure chronic ulcer of other part of left lower leg with fat layer exposed; L97.812 Non-pressure chronic ulcer of other part of right lower leg with fat layer exposed; F17.210 Nicotine dependence, cigarettes, uncomplicated | CPT/HCPCS: 11042; A6252 ==

== ENCOUNTER 2021-10-21 13:02 | Outpatient (CLI) | payer MEDICAID, SELFPAY | END 2021-10-21 13:03 | disposition home or self-care (01) | LOC: WOUND 13:05 | PROVIDERS: PCP Family Medicine; Visit Provider Nurse Practitioner Family | DX: I96 Gangrene, not elsewhere classified (principal); I87.2 Venous insufficiency (chronic) (peripheral); L97.822 Non-pressure chronic ulcer of other part of left lower leg with fat layer exposed; L97.812 Non-pressure chronic ulcer of other part of right lower leg with fat layer exposed; F17.210 Nicotine dependence, cigarettes, uncomplicated | CPT/HCPCS: 11042; A6252 ==

== ENCOUNTER 2021-10-29 09:03 | Outpatient (CLI) | payer MEDICAID, SELFPAY | END 2021-10-29 09:04 | disposition home or self-care (01) | LOC: WOUND 09:04 | PROVIDERS: PCP Family Medicine; Visit Provider Nurse Practitioner Family | DX: I96 Gangrene, not elsewhere classified (principal); I87.2 Venous insufficiency (chronic) (peripheral); L97.822 Non-pressure chronic ulcer of other part of left lower leg with fat layer exposed; L97.812 Non-pressure chronic ulcer of other part of right lower leg with fat layer exposed; F17.210 Nicotine dependence, cigarettes, uncomplicated | CPT/HCPCS: 11042; A6197 ==

== ENCOUNTER 2021-11-05 10:27 | Outpatient (CLI) | payer MEDICAID, SELFPAY | END 2021-11-05 10:28 | disposition home or self-care (01) | LOC: WOUND 10:28 | PROVIDERS: PCP Family Medicine; Visit Provider Emergency Medicine | DX: I96 Gangrene, not elsewhere classified (principal); I87.2 Venous insufficiency (chronic) (peripheral); L97.822 Non-pressure chronic ulcer of other part of left lower leg with fat layer exposed; M06.9 Rheumatoid arthritis, unspecified; F17.210 Nicotine dependence, cigarettes, uncomplicated | CPT/HCPCS: 11042; A6197; A6252 ==

== ENCOUNTER 2021-11-12 09:11 | Outpatient (CLI) | payer MEDICAID, SELFPAY | END 2021-11-12 09:12 | disposition home or self-care (01) | LOC: WOUND 09:11 | PROVIDERS: PCP Family Medicine; Visit Provider Emergency Medicine | DX: I96 Gangrene, not elsewhere classified (principal); I87.2 Venous insufficiency (chronic) (peripheral); L97.822 Non-pressure chronic ulcer of other part of left lower leg with fat layer exposed; L97.111 Non-pressure chronic ulcer of right thigh limited to breakdown of skin; F17.210 Nicotine dependence, cigarettes, uncomplicated | CPT/HCPCS: 11042; 99212; A6197; A6252 ==

== ENCOUNTER 2021-11-19 09:34 | Outpatient (CLI) | payer MEDICAID, SELFPAY | END 2021-11-19 09:35 | disposition home or self-care (01) | LOC: WOUND 09:34 | PROVIDERS: PCP Family Medicine; Visit Provider Emergency Medicine | DX: I96 Gangrene, not elsewhere classified (principal); I87.2 Venous insufficiency (chronic) (peripheral); L97.822 Non-pressure chronic ulcer of other part of left lower leg with fat layer exposed; L97.811 Non-pressure chronic ulcer of other part of right lower leg limited to breakdown of skin; F17.210 Nicotine dependence, cigarettes, uncomplicated | CPT/HCPCS: 11042; A6197 ==

== ENCOUNTER 2021-11-26 09:17 | Outpatient (CLI) | payer MEDICAID, SELFPAY | END 2021-11-26 09:18 | disposition home or self-care (01) | LOC: WOUND 09:18 | PROVIDERS: PCP Family Medicine; Visit Provider Emergency Medicine | DX: I96 Gangrene, not elsewhere classified (principal); L97.822 Non-pressure chronic ulcer of other part of left lower leg with fat layer exposed; I87.2 Venous insufficiency (chronic) (peripheral); L97.119 Non-pressure chronic ulcer of right thigh with unspecified severity | CPT/HCPCS: 11042; A6197 ==

== ENCOUNTER 2021-12-03 09:36 | Outpatient (CLI) | payer MEDICAID, SELFPAY | END 2021-12-03 09:37 | disposition home or self-care (01) | LOC: WOUND 09:37 | PROVIDERS: PCP Family Medicine; Visit Provider Emergency Medicine | DX: I87.2 Venous insufficiency (chronic) (peripheral) (principal); L97.822 Non-pressure chronic ulcer of other part of left lower leg with fat layer exposed; L97.111 Non-pressure chronic ulcer of right thigh limited to breakdown of skin; F17.210 Nicotine dependence, cigarettes, uncomplicated | CPT/HCPCS: 11042; A6197 ==

== ENCOUNTER 2021-12-10 09:07 | Outpatient (CLI) | payer MEDICAID, SELFPAY | END 2021-12-10 09:08 | disposition home or self-care (01) | LOC: WOUND 09:08 | PROVIDERS: PCP Family Medicine; Visit Provider Emergency Medicine | DX: I87.2 Venous insufficiency (chronic) (peripheral) (principal); L97.822 Non-pressure chronic ulcer of other part of left lower leg with fat layer exposed; L97.111 Non-pressure chronic ulcer of right thigh limited to breakdown of skin; F17.210 Nicotine dependence, cigarettes, uncomplicated | CPT/HCPCS: 11042; 87070; 87077; 87176; 87186; 87205; 99212; A6219 ==

== ENCOUNTER 2021-12-17 14:23 | Outpatient (CLI) | payer MEDICAID, SELFPAY | END 2021-12-17 14:24 | disposition home or self-care (01) | LOC: WOUND 14:24 | PROVIDERS: PCP Family Medicine; Visit Provider Emergency Medicine | DX: I87.2 Venous insufficiency (chronic) (peripheral) (principal); L97.822 Non-pressure chronic ulcer of other part of left lower leg with fat layer exposed; L97.111 Non-pressure chronic ulcer of right thigh limited to breakdown of skin; F17.210 Nicotine dependence, cigarettes, uncomplicated; A49.01 Methicillin susceptible Staphylococcus aureus infection, unspecified site | CPT/HCPCS: 11042; 99212; A6197; A6251 ==

== ENCOUNTER 2021-12-24 14:05 | Outpatient (CLI) | payer MEDICAID, SELFPAY | END 2021-12-24 14:06 | disposition home or self-care (01) | LOC: WOUND 14:05 | PROVIDERS: PCP Family Medicine; Visit Provider Thoracic Surgery (Cardiothoracic Vascular Surgery) | DX: L97.811 Non-pressure chronic ulcer of other part of right lower leg limited to breakdown of skin (principal); Z09 Encounter for follow-up examination after completed treatment for conditions other than malignant neoplasm; I87.2 Venous insufficiency (chronic) (peripheral); F17.210 Nicotine dependence, cigarettes, uncomplicated | CPT/HCPCS: 97597 ==

== ENCOUNTER 2021-12-31 13:17 | Outpatient (CLI) | payer MEDICAID, SELFPAY | END 2021-12-31 13:18 | disposition home or self-care (01) | LOC: WOUND 13:17 | PROVIDERS: PCP Family Medicine; Visit Provider Emergency Medicine | DX: L97.811 Non-pressure chronic ulcer of other part of right lower leg limited to breakdown of skin (principal); I87.2 Venous insufficiency (chronic) (peripheral); F17.210 Nicotine dependence, cigarettes, uncomplicated | CPT/HCPCS: 11042 ==

== ENCOUNTER 2022-01-07 09:15 | Outpatient (CLI) | payer MEDICAID, SELFPAY | END 2022-01-07 09:16 | disposition home or self-care (01) | LOC: WOUND 11:56 | PROVIDERS: PCP Family Medicine; Visit Provider Emergency Medicine | DX: I87.2 Venous insufficiency (chronic) (peripheral) (principal); L97.111 Non-pressure chronic ulcer of right thigh limited to breakdown of skin | CPT/HCPCS: 97597 ==

== ENCOUNTER → 2022-01-16 09:03 | Outpatient (BNVA) | payer MEDICAID, SELFPAY | PROVIDERS: PCP Family Medicine; Visit Provider Nurse Practitioner Family | DX: I96 Gangrene, not elsewhere classified (principal); L97.111 Non-pressure chronic ulcer of right thigh limited to breakdown of skin; L97.811 Non-pressure chronic ulcer of other part of right lower leg limited to breakdown of skin; L97.821 Non-pressure chronic ulcer of other part of left lower leg limited to breakdown of skin | CPT/HCPCS: 11042 ==

== ENCOUNTER → 2022-01-23 08:57 | Outpatient (BNVA) | payer MEDICAID, SELFPAY | PROVIDERS: PCP Family Medicine; Visit Provider Nurse Practitioner Family | DX: L97.111 Non-pressure chronic ulcer of right thigh limited to breakdown of skin (principal); L97.821 Non-pressure chronic ulcer of other part of left lower leg limited to breakdown of skin; L97.811 Non-pressure chronic ulcer of other part of right lower leg limited to breakdown of skin; F17.210 Nicotine dependence, cigarettes, uncomplicated; G47.33 Obstructive sleep apnea (adult) (pediatric); I82.599 Chronic embolism and thrombosis of other specified deep vein of unspecified lower extremity; Z95.828 Presence of other vascular implants and grafts; R60.0 Localized edema; I10 Essential (primary) hypertension | CPT/HCPCS: 11042; 99214; A6252 ==

== ENCOUNTER → 2022-01-30 08:55 | Outpatient (BNVA) | payer MEDICAID, SELFPAY | PROVIDERS: PCP Family Medicine; Visit Provider Nurse Practitioner Family | DX: L97.111 Non-pressure chronic ulcer of right thigh limited to breakdown of skin (principal); F17.210 Nicotine dependence, cigarettes, uncomplicated; I96 Gangrene, not elsewhere classified; I87.2 Venous insufficiency (chronic) (peripheral); L97.821 Non-pressure chronic ulcer of other part of left lower leg limited to breakdown of skin; L97.811 Non-pressure chronic ulcer of other part of right lower leg limited to breakdown of skin | CPT/HCPCS: 11042; 29581; A6252 ==

== ENCOUNTER → 2022-02-06 08:49 | Outpatient (BNVA) | payer MEDICAID, SELFPAY | PROVIDERS: PCP Family Medicine; Visit Provider Nurse Practitioner Family | DX: I87.2 Venous insufficiency (chronic) (peripheral) (principal); I96 Gangrene, not elsewhere classified; L97.111 Non-pressure chronic ulcer of right thigh limited to breakdown of skin; L97.821 Non-pressure chronic ulcer of other part of left lower leg limited to breakdown of skin; L97.811 Non-pressure chronic ulcer of other part of right lower leg limited to breakdown of skin; F17.210 Nicotine dependence, cigarettes, uncomplicated | CPT/HCPCS: 11042; A6212 ==

== ENCOUNTER → 2022-02-13 08:50 | Outpatient (BNVA) | payer MEDICAID, SELFPAY | PROVIDERS: PCP Family Medicine; Visit Provider Nurse Practitioner Family | DX: I87.2 Venous insufficiency (chronic) (peripheral) (principal); L97.111 Non-pressure chronic ulcer of right thigh limited to breakdown of skin; F17.210 Nicotine dependence, cigarettes, uncomplicated | CPT/HCPCS: 11042; A6212; A6251 ==

== ENCOUNTER → 2022-02-20 08:52 | Outpatient (BNVA) | payer MEDICAID, SELFPAY | PROVIDERS: PCP Family Medicine; Visit Provider Nurse Practitioner Family | DX: L97.811 Non-pressure chronic ulcer of other part of right lower leg limited to breakdown of skin (principal); I87.2 Venous insufficiency (chronic) (peripheral); L97.821 Non-pressure chronic ulcer of other part of left lower leg limited to breakdown of skin | CPT/HCPCS: 11042; A6252 ==

== ENCOUNTER → 2022-02-28 08:29 | Outpatient (BNVA) | payer MEDICAID, SELFPAY | PROVIDERS: PCP Family Medicine; Visit Provider Surgery | DX: L97.111 Non-pressure chronic ulcer of right thigh limited to breakdown of skin (principal); L97.821 Non-pressure chronic ulcer of other part of left lower leg limited to breakdown of skin; I87.2 Venous insufficiency (chronic) (peripheral); F17.210 Nicotine dependence, cigarettes, uncomplicated | CPT/HCPCS: 11042; A6251 ==

== ENCOUNTER → 2022-03-06 14:14 | Outpatient (BNVA) | payer MEDICAID, SELFPAY | PROVIDERS: PCP Family Medicine; Visit Provider Nurse Practitioner Family | DX: I96 Gangrene, not elsewhere classified (principal); I87.2 Venous insufficiency (chronic) (peripheral); L97.111 Non-pressure chronic ulcer of right thigh limited to breakdown of skin; L97.821 Non-pressure chronic ulcer of other part of left lower leg limited to breakdown of skin | CPT/HCPCS: 11042 ==

== ENCOUNTER → 2022-03-13 10:38 | Outpatient (BNVA) | payer MEDICAID, SELFPAY | PROVIDERS: PCP Family Medicine; Visit Provider Nurse Practitioner Family | DX: L97.111 Non-pressure chronic ulcer of right thigh limited to breakdown of skin (principal); I96 Gangrene, not elsewhere classified; I87.2 Venous insufficiency (chronic) (peripheral); L97.821 Non-pressure chronic ulcer of other part of left lower leg limited to breakdown of skin; F17.200 Nicotine dependence, unspecified, uncomplicated | CPT/HCPCS: 11042 ==

== ENCOUNTER → 2022-03-20 12:54 | Outpatient (BNVA) | payer MEDICAID, SELFPAY | PROVIDERS: PCP Family Medicine; Visit Provider Nurse Practitioner Family | DX: L97.111 Non-pressure chronic ulcer of right thigh limited to breakdown of skin (principal); I96 Gangrene, not elsewhere classified; I87.2 Venous insufficiency (chronic) (peripheral) | CPT/HCPCS: 11042 ==

== ENCOUNTER → 2022-03-27 10:28 | Outpatient (BNVA) | payer MEDICAID, SELFPAY | PROVIDERS: PCP Family Medicine; Visit Provider Nurse Practitioner Family | DX: I96 Gangrene, not elsewhere classified (principal); L97.111 Non-pressure chronic ulcer of right thigh limited to breakdown of skin; I87.2 Venous insufficiency (chronic) (peripheral); L97.821 Non-pressure chronic ulcer of other part of left lower leg limited to breakdown of skin | CPT/HCPCS: 11042 ==

== ENCOUNTER → 2022-04-03 13:43 | Outpatient (BNVA) | payer MEDICAID, SELFPAY | PROVIDERS: PCP Family Medicine; Visit Provider Nurse Practitioner Family | DX: I96 Gangrene, not elsewhere classified (principal); L97.111 Non-pressure chronic ulcer of right thigh limited to breakdown of skin; I87.2 Venous insufficiency (chronic) (peripheral); L97.821 Non-pressure chronic ulcer of other part of left lower leg limited to breakdown of skin | CPT/HCPCS: 11042 ==

== ENCOUNTER → 2022-04-09 13:59 | Outpatient (BNVA) | payer MEDICAID, SELFPAY | PROVIDERS: PCP Family Medicine; Visit Provider Nurse Practitioner Family | DX: I96 Gangrene, not elsewhere classified (principal); L97.111 Non-pressure chronic ulcer of right thigh limited to breakdown of skin; I87.2 Venous insufficiency (chronic) (peripheral); L97.821 Non-pressure chronic ulcer of other part of left lower leg limited to breakdown of skin; L97.822 Non-pressure chronic ulcer of other part of left lower leg with fat layer exposed | CPT/HCPCS: 11042 ==

== ENCOUNTER → 2022-04-17 14:07 | Outpatient (BNVA) | payer MEDICAID, SELFPAY | PROVIDERS: PCP Family Medicine; Visit Provider Nurse Practitioner Family | DX: I96 Gangrene, not elsewhere classified (principal); L97.111 Non-pressure chronic ulcer of right thigh limited to breakdown of skin; I87.2 Venous insufficiency (chronic) (peripheral); L97.821 Non-pressure chronic ulcer of other part of left lower leg limited to breakdown of skin; L97.822 Non-pressure chronic ulcer of other part of left lower leg with fat layer exposed | CPT/HCPCS: 11042 ==

== ENCOUNTER → 2022-04-25 13:55 | Outpatient (BNVA) | payer MEDICAID, SELFPAY | PROVIDERS: PCP Family Medicine; Visit Provider Surgery | DX: I96 Gangrene, not elsewhere classified (principal); L97.111 Non-pressure chronic ulcer of right thigh limited to breakdown of skin; I87.2 Venous insufficiency (chronic) (peripheral); L97.821 Non-pressure chronic ulcer of other part of left lower leg limited to breakdown of skin; L97.822 Non-pressure chronic ulcer of other part of left lower leg with fat layer exposed | CPT/HCPCS: 11042; 97597 ==

== ENCOUNTER → 2022-04-25 13:55 | Outpatient (BNVA) | payer MEDICAID, SELFPAY | PROVIDERS: PCP Family Medicine; Visit Provider Surgery | DX: I96 Gangrene, not elsewhere classified (principal); L97.111 Non-pressure chronic ulcer of right thigh limited to breakdown of skin; I87.2 Venous insufficiency (chronic) (peripheral); L97.821 Non-pressure chronic ulcer of other part of left lower leg limited to breakdown of skin; L97.822 Non-pressure chronic ulcer of other part of left lower leg with fat layer exposed | CPT/HCPCS: 11042 ==

== ENCOUNTER → 2022-04-29 11:04 | Outpatient (BNVA) | payer MEDICAID, SELFPAY | PROVIDERS: PCP Family Medicine; Visit Provider Podiatrist Foot & Ankle Surgery | DX: E11.8 Type 2 diabetes mellitus with unspecified complications (principal); L84 Corns and callosities; I73.9 Peripheral vascular disease, unspecified; G62.9 Polyneuropathy, unspecified; L60.3 Nail dystrophy | CPT/HCPCS: 11056; 11721 ==

== ENCOUNTER → 2022-05-01 14:12 | Outpatient (BNVA) | payer MEDICAID, SELFPAY | PROVIDERS: PCP Family Medicine; Visit Provider Emergency Medicine | DX: I87.2 Venous insufficiency (chronic) (peripheral) (principal); I96 Gangrene, not elsewhere classified; L97.111 Non-pressure chronic ulcer of right thigh limited to breakdown of skin; L97.821 Non-pressure chronic ulcer of other part of left lower leg limited to breakdown of skin; L97.822 Non-pressure chronic ulcer of other part of left lower leg with fat layer exposed | CPT/HCPCS: 11042; 11045 ==

== ENCOUNTER → 2022-05-08 13:32 | Outpatient (BNVA) | payer MEDICAID, SELFPAY | PROVIDERS: PCP Family Medicine; Visit Provider Nurse Practitioner Family | DX: I87.2 Venous insufficiency (chronic) (peripheral) (principal); L97.821 Non-pressure chronic ulcer of other part of left lower leg limited to breakdown of skin; I96 Gangrene, not elsewhere classified; L97.822 Non-pressure chronic ulcer of other part of left lower leg with fat layer exposed | CPT/HCPCS: 11042; 11045 ==

== ENCOUNTER → 2022-05-15 14:06 | Outpatient (BNVA) | payer MEDICAID, SELFPAY | PROVIDERS: PCP Family Medicine; Visit Provider Nurse Practitioner Family | DX: I96 Gangrene, not elsewhere classified (principal); I87.2 Venous insufficiency (chronic) (peripheral); L97.821 Non-pressure chronic ulcer of other part of left lower leg limited to breakdown of skin; L97.822 Non-pressure chronic ulcer of other part of left lower leg with fat layer exposed | CPT/HCPCS: 11042; 11045 ==

== ENCOUNTER 2022-05-18 10:51 | Emergency (ER) | payer MEDICAID, SELFPAY ==
[2022-05-18 11:34] VITALS: BP 176/82; PULSE 82; RESP 16; TEMP 36.7; O2SAT 97; BMI 56.7
[2022-05-18 12:10] VITALS: BP 155/86; O2SAT 91
--- NOTE | 2022-05-18 12:24 | USR_ITS ---
PROCEDURE INFORMATION: Exam: US Duplex Left Lower Extremity Veins, Limited Exam date and time: 05/18/2022 12:36 PM Age: 62 years old Clinical indication: Pain; Leg, lower; Left; Additional info: Concern for dvt TECHNIQUE: Imaging protocol: Real-time Duplex ultrasound of the Left Lower Extremity with 2-D huerta scale, color Doppler flow and spectral waveform analysis with image documentation. Limited exam focused on the left lower extremity veins. COMPARISON: US SoftTissue/Extrem Lmt [id number] 02/06/2019 12:42 PM FINDINGS: Technically difficult study secondary to the large body habitus of the patient. Left deep veins: Unremarkable. The common femoral, femoral, proximal profunda femoral and popliteal veins are patent without thrombus. Normal Doppler waveforms. Normal compressibility and/or augmentation response. Left superficial veins: Unremarkable. Saphenofemoral junction is patent without thrombus. Soft tissues: Unremarkable. US/[place] [id number] IMPRESSION: No evidence of deep vein thrombosis.
--- NOTE | 2022-05-18 12:30 | W.ED.EXTPRO ---
HPI - Extremity Problem General: Chief complaint: Extremity Problem,Nontraumatic Stated complaint: left leg pain Time Seen by Provider: 05/18/22 12:08 History of Present Illness: Patient comes in with left leg pain. States he has a history of a previous DVT in her left leg and was on Eliquis for a year. States she is no longer on a blood thinner. States the last couple of days she noticed a bump on her left thigh and was concerned for a DVT. Associated symptoms: Deny chest pain, fever(s) or rash Review of Systems Const: Denies: fever(s) or body aches Eyes: Denies: change in vision or blurry vision ENMT: Denies: throat pain or odynophagia Card: Denies: chest pain or palpitations Resp: Denies: dyspnea or productive cough GI: Denies: abdominal pain, nausea or vomiting : Denies: flank pain or dysuria Musc: Denies: neck pain or back pain Skin/Breast: Denies: rash or pruritus Neuro: Denies: headache(s) or numbness in extremities Psych: Denies: anxiety or change in appetite Endo: Denies: polyuria or excessive sweating PFSH ED PFSH: Medical History DJD (degenerative joint disease), lumbar DVT (deep venous thrombosis) Dyslipidemia History of DVT of lower extremity HTN (hypertension) Lower extremity edema Narcolepsy Obesity BROWN (obstructive sleep apnea) Surgical History Post corneal transplant S/P section S/P IVC filter Status post tubal ligation Family History Father Bleeding disorder CAD (coronary artery disease) Diabetes Stroke Family/Other CAD (coronary artery disease) Cancer Diabetes Stroke Mother Cancer Other Hyperlipidemia Hypertension Denies family history of Clotting disorder Dementia Chronic kidney disease (CKD) Suicide Anesthesia complication Lung disease Social History Smoking and tobacco status: current every day smoker cigarettes [ Other cigarette details: she is working on quitting] Second hand smoke exposure: No Smoking risk assessment/counseling performed?: Yes Alcohol intake: never Lives independently: Yes Household members: spouse Marital status: Current occupational status: disabled Physical Exam Const: COMMON NORMALS: no acute distress, patient oriented x3, healthy appearing and alert HENMT: COMMON NORMALS: normocephalic and atraumatic HEAD & SCALP: normocephalic and atraumatic Eye: COMMON NORMALS: Equal, round and reactive pupils present and EOMs intact bilaterally PUPIL: Yes Equal, round and reactive pupils present Neck/C-Spine: COMMON NORMALS: full ROM and supple Resp: COMMON NORMALS: normal respiratory effort, No retractions and No use of accessory muscles Cardio: COMMON NORMALS: regular rate and regular rhythm RATE: regular rate RHYTHM: regular rhythm GI: COMMON NORMALS: Normal to inspection, nondistended, normoactive bowel sounds present, Soft to palpation and non-tender PALPATION: Yes Soft to palpation Back/Pelvis: COMMON NORMALS: thoracic and lumbar spine normal to inspection and no thoracic nor lumbar tenderness Extremity: COMMON NORMALS: full ROM NARRATIVE EXTREMITY EXAM: palpable bump on her left anterior thigh, nontender, not hot or erythematous. Neuro: COMMON NORMALS: patient oriented x3 SENSORIUM/ORIENTATION: Yes alert Psych: COMMON NORMALS: mental status grossly normal and cooperative Skin: COMMON NORMALS: no rashes or lesions noted and no wounds GENERAL SKIN EXAM: no rashes or lesions noted Course Vital Signs: Vital signs: Vital Signs Temperature 98.0 F 05/18/22 11:34 Pulse Rate 82 05/18/22 11:34 Respiratory Rate 16 05/18/22 11:34 Blood Pressure 155/86 05/18/22 12:10 Pulse Oximetry 91 05/18/22 12:10 MDM - Extremity (Nontraumatic) Medical Decision Making Patient comes in with left leg pain. States he has a history of a previous DVT in her left leg and was on Eliquis for a year. States she is no longer on a blood thinner. States the last couple of days she noticed a bump on her left thigh and was concerned for a DVT. On physical exam she has a palpable bump on her left anterior thigh that appears to be a tortuous vein, nontender, not hot or erythematous. We will check ultrasound, and reassess. On reassessment I talked to the patient about the test results. Will discharge home at this time with precautions to return for worsening or changing symptoms. Lab Data Radiology Impressions Venous Duplex 05/18/22 12:24 IMPRESSION: No evidence of deep vein thrombosis. Discharge Plan Discharge Patient Disposition: Home Clinical Impression: Leg pain Condition: Stable Prescriptions: No Action aspirin 325 mg tablet 325 mg PO DAILY 0RF hydrocortisone 2.5 % ointment 1 applic topical DAILY Qty: 454 0RF Rx Instructions: To red skin folds twice daily Thursday through Thursday until follow-up appointment in 6 weeks ammonium lactate 12 % cream 1 applic topical BID Qty: 385 3RF Rx Instructions: start after using triamcinolone for 2 weeks then use both until f/u triamcinolone acetonide 0.1 % ointment 1 applic topical BID Qty: 453.6 3RF Rx Instructions: to legs BID - and off on weekends until follow-up acetaminophen 500 mg tablet 500 mg PO Q6H PRN0RF ketoconazole 2 % shampoo 1 applic topical .2 x weekly Qty: 120 3RF Rx Instructions: Lather into scalp 2 times weekly. Allow to sit on scalp for 5 minutes before rinsing. mometasone 0.1 % solution 1 applic topical DAILY Qty: 60 3RF Rx Instructions: to thick areas on scalp ketoconazole 2 % cream 1 applic topical BID Qty: 60 3RF Rx Instructions: to skin folds of legs x 4 weeks then prn flares calcipotriene 0.005 % cream 1 applic topical DAILY Qty: 120 3RF Rx Instructions: rub in gently and completely clobetasol 0.05 % ointment 1 applic topical BID 14 Days Qty: 60 1RF Rx Instructions: to affected areas no more than 2 weeks/mo prn alternating with triamcinolone Discharge Orders: Discharge ED (Routine); Ordered 05/18/22 Ordered By: Abdelrahman Torres Referrals: Roberta Low MD [Primary Care Provider] - Coding Level of Care Code ED Human Resources Services Specialist for Chg Fwd Exam Comprehensive
[2022-05-18 13:29] VITALS: BP 146/105; RESP 18
== END 2022-05-18 13:25 | disposition home or self-care (01) ==
PROVIDERS: Emergency Provider Emergency Medicine; PCP Family Medicine
DX: M79.605 Pain in left leg (principal); Z79.82 Long term (current) use of aspirin; E78.5 Hyperlipidemia, unspecified; Z86.718 Personal history of other venous thrombosis and embolism; I10 Essential (primary) hypertension; Z94.7 Corneal transplant status; F17.210 Nicotine dependence, cigarettes, uncomplicated
CPT/HCPCS: 93971; 99284

== ENCOUNTER → 2022-05-22 13:47 | Outpatient (BNVA) | payer MEDICAID, SELFPAY | PROVIDERS: PCP Family Medicine; Visit Provider Nurse Practitioner Family | DX: I87.2 Venous insufficiency (chronic) (peripheral) (principal); L97.821 Non-pressure chronic ulcer of other part of left lower leg limited to breakdown of skin; I96 Gangrene, not elsewhere classified | CPT/HCPCS: 11042; 15275; A6206; A6252; A6253 ==

== ENCOUNTER → 2022-05-23 11:30 | Outpatient (BNVA) | payer MEDICAID, SELFPAY | PROVIDERS: PCP Family Medicine; Visit Provider Family Medicine | DX: G47.33 Obstructive sleep apnea (adult) (pediatric) (principal); I73.9 Peripheral vascular disease, unspecified; I10 Essential (primary) hypertension; R60.0 Localized edema; E78.5 Hyperlipidemia, unspecified | CPT/HCPCS: 80053; 80061; 82652; 84443; 85025 ==

== ENCOUNTER → 2022-05-26 14:10 | Outpatient (BNVA) | payer MEDICAID, SELFPAY | PROVIDERS: PCP Family Medicine; Visit Provider Nurse Practitioner Family | DX: L97.822 Non-pressure chronic ulcer of other part of left lower leg with fat layer exposed (principal); I87.2 Venous insufficiency (chronic) (peripheral) | CPT/HCPCS: 29581 ==

== ENCOUNTER → 2022-05-29 14:10 | Outpatient (BNVA) | payer MEDICAID, SELFPAY | PROVIDERS: PCP Family Medicine; Visit Provider Nurse Practitioner Family | DX: I87.2 Venous insufficiency (chronic) (peripheral) (principal); L97.821 Non-pressure chronic ulcer of other part of left lower leg limited to breakdown of skin; I96 Gangrene, not elsewhere classified; L97.822 Non-pressure chronic ulcer of other part of left lower leg with fat layer exposed | CPT/HCPCS: 11042; 15271; A6252 ==

== ENCOUNTER → 2022-06-05 10:49 | Outpatient (BNVA) | payer MEDICAID, SELFPAY | PROVIDERS: PCP Family Medicine; Visit Provider Nurse Practitioner Family | DX: I96 Gangrene, not elsewhere classified (principal); I87.2 Venous insufficiency (chronic) (peripheral); L97.821 Non-pressure chronic ulcer of other part of left lower leg limited to breakdown of skin; L97.822 Non-pressure chronic ulcer of other part of left lower leg with fat layer exposed; L97.812 Non-pressure chronic ulcer of other part of right lower leg with fat layer exposed | CPT/HCPCS: 11042; A6252 ==

== ENCOUNTER → 2022-06-12 13:30 | Outpatient (BNVA) | payer MEDICAID, SELFPAY | PROVIDERS: PCP Family Medicine; Visit Provider Nurse Practitioner Family | DX: I87.2 Venous insufficiency (chronic) (peripheral) (principal); I96 Gangrene, not elsewhere classified; L97.821 Non-pressure chronic ulcer of other part of left lower leg limited to breakdown of skin; L97.812 Non-pressure chronic ulcer of other part of right lower leg with fat layer exposed | CPT/HCPCS: 11042; 87070; 87077; 87176; 87186; 87205; A6252 ==

== ENCOUNTER → 2022-06-16 14:28 | Outpatient (BNVA) | payer MEDICAID, SELFPAY | PROVIDERS: PCP Family Medicine; Visit Provider Thoracic Surgery (Cardiothoracic Vascular Surgery) | DX: I87.2 Venous insufficiency (chronic) (peripheral) (principal); L97.822 Non-pressure chronic ulcer of other part of left lower leg with fat layer exposed | CPT/HCPCS: 29581; A6252 ==

== ENCOUNTER → 2022-06-19 14:04 | Outpatient (BNVA) | payer MEDICAID, SELFPAY | PROVIDERS: PCP Family Medicine; Visit Provider Nurse Practitioner Family | DX: I87.2 Venous insufficiency (chronic) (peripheral) (principal); L97.821 Non-pressure chronic ulcer of other part of left lower leg limited to breakdown of skin; I96 Gangrene, not elsewhere classified; L97.822 Non-pressure chronic ulcer of other part of left lower leg with fat layer exposed; L97.812 Non-pressure chronic ulcer of other part of right lower leg with fat layer exposed | CPT/HCPCS: 11042; 11045; A6252 ==

== ENCOUNTER → 2022-06-26 10:39 | Outpatient (BNVA) | payer MEDICAID, SELFPAY | PROVIDERS: PCP Family Medicine; Visit Provider Nurse Practitioner Family | DX: I87.2 Venous insufficiency (chronic) (peripheral) (principal); L97.821 Non-pressure chronic ulcer of other part of left lower leg limited to breakdown of skin; L97.822 Non-pressure chronic ulcer of other part of left lower leg with fat layer exposed; L97.812 Non-pressure chronic ulcer of other part of right lower leg with fat layer exposed; I96 Gangrene, not elsewhere classified | CPT/HCPCS: 99213; 99215 ==

== ENCOUNTER → 2022-07-03 14:25 | Outpatient (BNVA) | payer MEDICAID, SELFPAY | PROVIDERS: PCP Family Medicine; Visit Provider Nurse Practitioner Family | DX: I87.2 Venous insufficiency (chronic) (peripheral) (principal); L97.821 Non-pressure chronic ulcer of other part of left lower leg limited to breakdown of skin; L97.822 Non-pressure chronic ulcer of other part of left lower leg with fat layer exposed; L97.812 Non-pressure chronic ulcer of other part of right lower leg with fat layer exposed; I96 Gangrene, not elsewhere classified | CPT/HCPCS: 11042; 11045; 87070; 87077; 87176; 87186; 87205; A6252; A6253 ==

== ENCOUNTER → 2022-07-10 13:43 | Outpatient (BNVA) | payer MEDICAID, SELFPAY | PROVIDERS: PCP Family Medicine; Visit Provider Nurse Practitioner Family | DX: I87.2 Venous insufficiency (chronic) (peripheral) (principal); L97.821 Non-pressure chronic ulcer of other part of left lower leg limited to breakdown of skin; L97.822 Non-pressure chronic ulcer of other part of left lower leg with fat layer exposed; L97.812 Non-pressure chronic ulcer of other part of right lower leg with fat layer exposed; L97.811 Non-pressure chronic ulcer of other part of right lower leg limited to breakdown of skin | CPT/HCPCS: 11042 ==

== ENCOUNTER → 2022-07-17 09:18 | Outpatient (BNVA) | payer MEDICAID, SELFPAY | PROVIDERS: PCP Family Medicine; Visit Provider Thoracic Surgery (Cardiothoracic Vascular Surgery) | DX: I96 Gangrene, not elsewhere classified (principal); I87.2 Venous insufficiency (chronic) (peripheral); L97.822 Non-pressure chronic ulcer of other part of left lower leg with fat layer exposed; L97.812 Non-pressure chronic ulcer of other part of right lower leg with fat layer exposed; L97.811 Non-pressure chronic ulcer of other part of right lower leg limited to breakdown of skin | CPT/HCPCS: 11042; 97597; A6252 ==

== ENCOUNTER → 2022-07-24 09:21 | Outpatient (BNVA) | payer MEDICAID, SELFPAY | PROVIDERS: PCP Family Medicine; Visit Provider Nurse Practitioner Family | DX: I87.2 Venous insufficiency (chronic) (peripheral) (principal); I96 Gangrene, not elsewhere classified; L97.822 Non-pressure chronic ulcer of other part of left lower leg with fat layer exposed; L97.812 Non-pressure chronic ulcer of other part of right lower leg with fat layer exposed | CPT/HCPCS: 11042; A6252 ==

== ENCOUNTER → 2022-07-31 13:31 | Outpatient (BNVA) | payer MEDICAID, SELFPAY | PROVIDERS: PCP Family Medicine; Visit Provider Nurse Practitioner Family | DX: I96 Gangrene, not elsewhere classified (principal); I87.2 Venous insufficiency (chronic) (peripheral); L97.822 Non-pressure chronic ulcer of other part of left lower leg with fat layer exposed; L97.812 Non-pressure chronic ulcer of other part of right lower leg with fat layer exposed | CPT/HCPCS: 11042; A6252 ==

== ENCOUNTER 2022-08-04 12:22 | Emergency (ER) | payer MEDICAID, SELFPAY ==
[2022-08-04 12:40] VITALS: BP 163/82; PULSE 97; RESP 16; TEMP 36.6; O2SAT 98; BMI 56.7
--- NOTE | 2022-08-04 13:25 | ED_ITS ---
HPI - Extremity Problem General: Chief complaint: Extremity Injury, Lower Stated complaint: Reg leg is in pain Time Seen by Provider: 08/04/22 13:24 History of Present Illness: 62-year-old female comes in today for complaints of right hip pain and discomfort with increased swelling and bruising to the inguinal area. Patient had fallen on Thursday after getting up out of bed. Patient had to be assisted by EMS into a wheelchair but did not get further evaluated. Patient has used a walker at home to transfer. Patient is morbidly obese. Noticeable swelling and bruising is noted to the right inguinal area. Associated symptoms: Deny chest pain or fever(s) Review of Systems Const: Denies: fever(s) Card: Denies: chest pain Resp: Denies: dyspnea Musc: Reports: extremity pain (Right upper leg pain) Skin/Breast: Reports: other (Bruising right inguinal area.) [facility] ED PFSH: Medical History DJD (degenerative joint disease), lumbar DVT (deep venous thrombosis) Dyslipidemia History of DVT of lower extremity HTN (hypertension) Lower extremity edema Narcolepsy Obesity BROWN (obstructive sleep apnea) Surgical History Post corneal transplant S/P section S/P IVC filter Status post tubal ligation Family History Father Bleeding disorder CAD (coronary artery disease) Diabetes Stroke Family/Other CAD (coronary artery disease) Cancer Diabetes Stroke Mother Cancer Other Hyperlipidemia Hypertension Denies family history of Clotting disorder Dementia Chronic kidney disease (CKD) Suicide Anesthesia complication Lung disease Social History (Updated 07/04/22 @ 09:32 by Ольга Chen LPN) Smoking and tobacco status: light tobacco smoker cigarettes [ Other cigarette details: she is working on quitting] Second hand smoke exposure: No Smoking risk assessment/counseling performed?: Yes Alcohol intake: never Desire information about alcohol rehabilitation?: No Counseling given: No Desire information about substance/drug rehabilitation?: No Counseling given: No Adopted: No Caregiver/support person: Yes ( assist) Lives independently: Yes Household members: spouse Marital status: service: No Current occupational status: disabled Pets and animals: Yes Pets & animals: dog(s) Current gender identity: Female Physical Exam Const: COMMON NORMALS: alert HENMT: COMMON NORMALS: normocephalic HEAD & SCALP: normocephalic Neck/C-Spine: COMMON NORMALS: full ROM Resp: COMMON NORMALS: normal respiratory effort and clear to auscultation bilaterally AUSCULTATION: clear to auscultation bilaterally Cardio: COMMON NORMALS: regular rate and regular rhythm RATE: regular rate RHYTHM: regular rhythm GI: COMMON NORMALS: non-tender Back/Pelvis: THORACIC SPINE/UPPER BACK: No thoracic spinal tenderness LUMBAR SPINE/LOWER BACK: Yes lumbar spinal tenderness (Lower lumbar, patient reports as chronic) and No paraspinal muscle tenderness Extremity: RIGHT LOWER EXTREMITY: Yes upper leg (Ecchymosis to the right inguinal area with swelling) and Yes lower leg (Chronic lower extremity edema) Neuro: SENSORIUM/ORIENTATION: Yes alert Skin: COMMON NORMALS: turgor normal GENERAL SKIN EXAM: turgor normal Course Vital Signs: Vital signs: Vital Signs Temperature 97.8 F 08/04/22 12:40 Pulse Rate 93 08/04/22 14:57 Respiratory Rate 19 H 08/04/22 14:57 Blood Pressure 163/82 08/04/22 12:40 Pulse Oximetry 96 08/04/22 14:57 Oxygen Delivery Me thod 08/04/22 14:57 MDM - Extremity (Nontraumatic) Medical Decision Making 62-year-old female comes in today for complaints of injury to the right upper leg. Patient had fallen on Thursday and had been using a walker to get around. Patient is concerned due to the inner right thigh pain and bruising. Patient reports falling onto the right side after getting up out of bed on Thursday. Patient has been able to use a walker for transfers and short ambulation. Patient is concerned about the swelling because of history of DVT. Differential diagnosis includes but not limited to hematoma, fracture, DVT. X-ray of the hip and femur noted no acute fracture. Due to continued concern of fracture a CT scan was done for the hip, and noted no fracture. Ultrasound of the extremity indicated no DVT. I believe patient has a significant hematoma to the area. Recommended activity as tolerated. Patient was concerned for mobility and difficulty with ambulation and requested assistance with a wheelchair. I feel that the wheelchair will be beneficial for the patient to mobilize in the house. Patient reported understanding of care plan and need for follow-up or return to the ER. Lab Data Radiology Impressions Hip/Pelvis X-Ray 08/04/22 13:30 IMPRESSION: 1. No right-sided hip fracture identified. This study is suboptimal and compromised by body habitus. 2. If there is continued concern for fracture consider CT evaluation. Femur X-Ray 08/04/22 13:32 IMPRESSION: No acute right femur bone abnormality. Chronic fracture proximal shaft right fibula Hip CT 08/04/22 14:36 IMPRESSION: 1. No displaced hip fractures are identified. Study is still suboptimal due to body habitus which degrades quality imaging. 2. No dislocation. Discharge Plan Discharge Patient Disposition: Home Clinical Impression: Hematoma of leg Qualifiers: Encounter type: initial encounter Laterality: right Qualified Code(s): S80.11XA - Contusion of right lower leg, initial encounter Condition: Stable Prescriptions: No Action aspirin 325 mg tablet 325 mg PO DAILY hydrocortisone 2.5 % ointment 1 applic topical DAILY Qty: 454 0RF Rx Instructions: To red skin folds twice daily Thursday through Thursday until follow-up appointment in 6 weeks ammonium lactate 12 % cream 1 applic topical BID Qty: 385 3RF Rx Instructions: start after using triamcinolone for 2 weeks then use both until f/u triamcinolone acetonide 0.1 % ointment 1 applic topical BID Qty: 453.6 3RF Rx Instructions: to legs BID M-F and off on weekends until follow-up acetaminophen 500 mg tablet 500 mg PO Q6H PRN ketoconazole 2 % shampoo 1 applic topical .2 x weekly Qty: 120 3RF Rx Instructions: Lather into scalp 2 times weekly. Allow to sit on scalp for 5 minutes before rinsing. mometasone 0.1 % solution 1 applic topical DAILY Qty: 60 3RF Rx Instructions: to thick areas on scalp ketoconazole 2 % cream 1 applic topical BID Qty: 60 3RF Rx Instructions: to skin folds of legs x 4 weeks then prn flares calcipotriene 0.005 % cream 1 applic topical DAILY Qty: 120 3RF Rx Instructions: rub in gently and completely clobetasol 0.05 % ointment 1 applic topical BID 14 Days Qty: 60 1RF Rx Instructions: to affected areas no more than 2 weeks/mo prn alternating with triamcinolone calcipotriene [Dovonex] 0.005 % cream 1 applic topical DAILY Qty: 120 3RF Rx Instructions: rub in gently and completely sulfamethoxazole-trimethoprim [Bactrim DS] 800-160 mg tablet 1 tab PO BID Qty: 14 0RF Discharge Orders: Discharge ED (Routine); Ordered 08/04/22 Ordered By: Leonard Acosta Other Ambulatory Orders: DME: Miscellaneous (Order) Location: None Selected Ordered By: Leonard Acosta Patient Instructions: Hematoma (ED) Activity Restrictions/Additional Instructions: Activity as tolerated. Use ice or heat for further comfort. Use Tylenol/acetaminophen as needed for pain. Follow-up with primary care in 3 to 5 days for recheck. Return to ER for new concerns. Coding Level of Care Code ED Land Management Forester for [place] Fwd Exam Comprehensive
--- NOTE | 2022-08-04 13:30 | USCV_ITS ---
Beverly Yao Age: 62 Gender: F : 1960 Exam Date: 08/04/2022 15:02 Ordering Phys: Leonard Acosta Technologist: Chan Zhang Exam Location: [facility] [place]_ Indication: rt leg pain PROCEDURES: Venous duplex imaging was performed in only the right lower extremity. The following venous structures were evaluated: common femoral vein, profunda vein, proximal portion of the greater saphenous vein, superficial femoral vein, and the popliteal vein. In addition, the posterior tibial and peroneal trunk were evaluated. FINDINGS: Normal 2-D Doppler and augmentation and compressibility throughout the lower extremity venous structures. Additional imaging through the proximal calf veins also reveals no thrombus. Limited evaluation of the greater saphenous vein is patent with no thrombus. CONCLUSIONS No DVT right lower extremity. Dr. Sandra Dumont DO (Electronically Signed) Final Date: 04 August 2022 15:41 S
--- NOTE | 2022-08-04 13:30 | XR_ITS ---
WS: [id number] PELVIS AND RIGHT HIP HISTORY: Fall. COMPARISON: None available. Quality of this examination is significantly compromised by body habitus. Insufficient exposure. Right hip: No acute fracture or dislocation. Hip joint appears slightly narrow. LEFT hip joint appears slightly narrow. XR/XR hip RT 2-3V wo/w pel* [id number] IMPRESSION: 1. No right-sided hip fracture identified. This study is suboptimal and compro mised by body habitus. 2. If there is continued concern for fracture consider CT evaluation.
--- NOTE | 2022-08-04 13:32 | XRR_ITS ---
PROCEDURE INFORMATION: Exam: XR Right Femur Exam date and time: 08/04/2022 1:46 PM Age: 62 years old Clinical indication: Injury or trauma; Fall; Blunt trauma; Thigh or upper leg; Right; Injury date: 08/01/22; Prior surgery; Surgery date: 6+ months; Surgery type: Prior fracture in 2017 on tibfib; Additional info: Fall injury TECHNIQUE: Imaging protocol: Radiologic exam of the Right femur. Views: 2 views. COMPARISON: CR XR hip RT 2-3V wo/w pel* [id number] 08/04/2022 1:38 PM FINDINGS: Bones/joints: Chronic fracture proximal shaft of the fibula. The right femur is negative for acute abnormality. The right tibia is incompletely visible. No acute fracture. Soft tissues: Unremarkable. XR/XR femur RT min 2V* [id number] IMPRESSION: No acute right femur bone abnormality. Chronic fracture proximal shaft right fibula
[2022-08-04] MEDS: HYDROcodone-acetaminophen 5-325 mg Tablet 1 TAB PO (13:38)
--- NOTE | 2022-08-04 14:36 | CT_ITS ---
WS: [id number] CT RIGHT HIP, NONCONTRAST HISTORY: fall injury Technique: All CT scans at [facility] use at least one of these dose optimization techniques: automated exposure control; mA and/or kV adjustment per patient size (includes targeted exams where dose is matched to clinical indication); or iterative reconstruction. DLP: 1135.65 mGy.cm COMPARISON: Radiographs performed on the same day. Quality of examination is still suboptimal due to body habitus. No fractures are identified. Normal p osition of the femoral head. No acetabular abnormality. No soft tissue abnormality. CT/CT hip RT wo con* [id number] IMPRESSION: 1. No displaced hip fractures are identified. Study is still suboptimal due to body habitus which degrades quality imaging. 2. No dislocation.
[2022-08-04 14:57] VITALS: PULSE 93; RESP 19; O2SAT 96
== END 2022-08-04 16:10 | disposition home or self-care (01) ==
PROVIDERS: Emergency Provider Nurse Practitioner Family
DX: S80.11XA Contusion of right lower leg, initial encounter (principal); Z79.82 Long term (current) use of aspirin; F17.210 Nicotine dependence, cigarettes, uncomplicated; E78.5 Hyperlipidemia, unspecified; I10 Essential (primary) hypertension; Z94.7 Corneal transplant status; W19.XXXA Unspecified fall, initial encounter
CPT/HCPCS: 73502; 73552; 73700; 93971; 99285

== ENCOUNTER → 2022-08-07 13:58 | Outpatient (BNVA) | payer MEDICAID, SELFPAY | PROVIDERS: Visit Provider Nurse Practitioner Family | DX: I96 Gangrene, not elsewhere classified (principal); I87.2 Venous insufficiency (chronic) (peripheral); L97.822 Non-pressure chronic ulcer of other part of left lower leg with fat layer exposed | CPT/HCPCS: 11042 ==

== ENCOUNTER → 2022-08-14 13:28 | Outpatient (BNVA) | payer MEDICAID, SELFPAY | PROVIDERS: Visit Provider Nurse Practitioner Family | DX: I96 Gangrene, not elsewhere classified (principal); I87.2 Venous insufficiency (chronic) (peripheral); L97.822 Non-pressure chronic ulcer of other part of left lower leg with fat layer exposed | CPT/HCPCS: 11042; 87070; 87077; 87176; 87186; 87205; A6252 ==

== ENCOUNTER → 2022-08-21 10:33 | Outpatient (BNVA) | payer MEDICAID, SELFPAY | PROVIDERS: Visit Provider Nurse Practitioner Family | DX: I96 Gangrene, not elsewhere classified (principal); I87.2 Venous insufficiency (chronic) (peripheral); L97.822 Non-pressure chronic ulcer of other part of left lower leg with fat layer exposed | CPT/HCPCS: 11042; A6252 ==

== ENCOUNTER → 2022-08-28 13:09 | Outpatient (BNVA) | payer MEDICAID, SELFPAY | PROVIDERS: Visit Provider Nurse Practitioner Family | DX: I96 Gangrene, not elsewhere classified (principal); I87.2 Venous insufficiency (chronic) (peripheral); L97.822 Non-pressure chronic ulcer of other part of left lower leg with fat layer exposed; L97.812 Non-pressure chronic ulcer of other part of right lower leg with fat layer exposed | CPT/HCPCS: 11042; A6252 ==

== ENCOUNTER → 2022-09-04 12:57 | Outpatient (BNVA) | payer MEDICAID, SELFPAY | PROVIDERS: Visit Provider Nurse Practitioner Family | DX: I96 Gangrene, not elsewhere classified (principal); I87.2 Venous insufficiency (chronic) (peripheral); L97.922 Non-pressure chronic ulcer of unspecified part of left lower leg with fat layer exposed; L89.892 Pressure ulcer of other site, stage 2 | CPT/HCPCS: 11042; A6252 ==

== ENCOUNTER → 2022-09-11 10:32 | Outpatient (BNVA) | payer MEDICAID, SELFPAY | PROVIDERS: Visit Provider Nurse Practitioner Family | DX: I96 Gangrene, not elsewhere classified (principal); I87.2 Venous insufficiency (chronic) (peripheral); L97.922 Non-pressure chronic ulcer of unspecified part of left lower leg with fat layer exposed; L89.892 Pressure ulcer of other site, stage 2 | CPT/HCPCS: 11042 ==

== ENCOUNTER → 2022-09-16 14:28 | Outpatient (BNVA) | payer MEDICAID, SELFPAY | PROVIDERS: Visit Provider Nurse Practitioner Family | DX: I87.2 Venous insufficiency (chronic) (peripheral) (principal); I96 Gangrene, not elsewhere classified; L89.892 Pressure ulcer of other site, stage 2; L97.922 Non-pressure chronic ulcer of unspecified part of left lower leg with fat layer exposed | CPT/HCPCS: 11042; A6210; A6250; A6252 ==

== ENCOUNTER → 2022-09-25 10:24 | Outpatient (BNVA) | payer MEDICAID, SELFPAY | PROVIDERS: Visit Provider Nurse Practitioner Family | DX: I96 Gangrene, not elsewhere classified (principal); I87.2 Venous insufficiency (chronic) (peripheral); L97.822 Non-pressure chronic ulcer of other part of left lower leg with fat layer exposed; L89.892 Pressure ulcer of other site, stage 2 | CPT/HCPCS: 11042; A6252 ==

== ENCOUNTER → 2022-09-30 08:17 | Outpatient (BNVA) | payer MEDICAID, SELFPAY | PROVIDERS: Visit Provider Podiatrist Foot & Ankle Surgery | DX: I73.9 Peripheral vascular disease, unspecified (principal); L60.3 Nail dystrophy; G62.9 Polyneuropathy, unspecified; L84 Corns and callosities | CPT/HCPCS: 11056; 11721 ==

== ENCOUNTER → 2022-10-02 13:16 | Outpatient (BNVA) | payer MEDICAID, SELFPAY | PROVIDERS: Visit Provider Nurse Practitioner Family | DX: I96 Gangrene, not elsewhere classified (principal); I87.2 Venous insufficiency (chronic) (peripheral); L97.812 Non-pressure chronic ulcer of other part of right lower leg with fat layer exposed; L97.822 Non-pressure chronic ulcer of other part of left lower leg with fat layer exposed | CPT/HCPCS: 11042; A6252 ==

== ENCOUNTER → 2022-10-09 10:05 | Outpatient (BNVA) | payer MEDICAID, SELFPAY | PROVIDERS: Visit Provider Thoracic Surgery (Cardiothoracic Vascular Surgery) | DX: I96 Gangrene, not elsewhere classified (principal); I87.2 Venous insufficiency (chronic) (peripheral); L97.822 Non-pressure chronic ulcer of other part of left lower leg with fat layer exposed; S81.811D Laceration without foreign body, right lower leg, subsequent encounter; X58.XXXD Exposure to other specified factors, subsequent encounter; L08.9 Local infection of the skin and subcutaneous tissue, unspecified | CPT/HCPCS: 11042; A6252 ==

== ENCOUNTER → 2022-10-15 14:32 | Outpatient (BNVA) | payer MEDICAID, SELFPAY | PROVIDERS: Visit Provider Thoracic Surgery (Cardiothoracic Vascular Surgery) | DX: I96 Gangrene, not elsewhere classified (principal); I87.2 Venous insufficiency (chronic) (peripheral); L97.822 Non-pressure chronic ulcer of other part of left lower leg with fat layer exposed; L97.812 Non-pressure chronic ulcer of other part of right lower leg with fat layer exposed | CPT/HCPCS: 11042 ==

== ENCOUNTER → 2022-10-22 10:52 | Outpatient (BNVA) | payer MEDICAID, SELFPAY | PROVIDERS: Visit Provider Surgery | DX: I87.2 Venous insufficiency (chronic) (peripheral) (principal); L97.822 Non-pressure chronic ulcer of other part of left lower leg with fat layer exposed; L97.812 Non-pressure chronic ulcer of other part of right lower leg with fat layer exposed; I96 Gangrene, not elsewhere classified | CPT/HCPCS: 11042 ==

== ENCOUNTER → 2022-10-29 10:36 | Outpatient (BNVA) | payer MEDICAID, SELFPAY | PROVIDERS: Visit Provider Thoracic Surgery (Cardiothoracic Vascular Surgery) | DX: I96 Gangrene, not elsewhere classified (principal); I87.2 Venous insufficiency (chronic) (peripheral); L97.822 Non-pressure chronic ulcer of other part of left lower leg with fat layer exposed | CPT/HCPCS: 11042 ==

== ENCOUNTER → 2022-10-31 10:52 | Outpatient (BNVA) | payer MEDICAID, SELFPAY | PROVIDERS: Visit Provider Thoracic Surgery (Cardiothoracic Vascular Surgery) | DX: I96 Gangrene, not elsewhere classified (principal); I87.2 Venous insufficiency (chronic) (peripheral); L97.822 Non-pressure chronic ulcer of other part of left lower leg with fat layer exposed | CPT/HCPCS: 29581; A6252 ==

== ENCOUNTER → 2022-11-03 13:53 | Outpatient (BNVA) | payer MEDICAID, SELFPAY | PROVIDERS: Visit Provider Thoracic Surgery (Cardiothoracic Vascular Surgery) | DX: I96 Gangrene, not elsewhere classified (principal); I87.2 Venous insufficiency (chronic) (peripheral); L97.822 Non-pressure chronic ulcer of other part of left lower leg with fat layer exposed | CPT/HCPCS: 11042 ==

== ENCOUNTER → 2022-11-10 14:58 | Outpatient (BNVA) | payer MEDICAID, SELFPAY | PROVIDERS: Visit Provider Thoracic Surgery (Cardiothoracic Vascular Surgery) | DX: I96 Gangrene, not elsewhere classified (principal); I87.2 Venous insufficiency (chronic) (peripheral); L97.822 Non-pressure chronic ulcer of other part of left lower leg with fat layer exposed | CPT/HCPCS: 11042; A6252 ==

== ENCOUNTER → 2022-11-17 14:50 | Outpatient (BNVA) | payer MEDICAID, SELFPAY | PROVIDERS: Visit Provider Thoracic Surgery (Cardiothoracic Vascular Surgery) | DX: I96 Gangrene, not elsewhere classified (principal); I87.2 Venous insufficiency (chronic) (peripheral); L97.822 Non-pressure chronic ulcer of other part of left lower leg with fat layer exposed | CPT/HCPCS: 11042; A6252 ==

== ENCOUNTER → 2022-12-01 15:47 | Outpatient (BNVA) | payer MEDICAID, SELFPAY | PROVIDERS: Visit Provider Thoracic Surgery (Cardiothoracic Vascular Surgery) | DX: I96 Gangrene, not elsewhere classified (principal); I87.2 Venous insufficiency (chronic) (peripheral); L89.892 Pressure ulcer of other site, stage 2; L97.822 Non-pressure chronic ulcer of other part of left lower leg with fat layer exposed | CPT/HCPCS: 11042; 97597; A6252 ==

== ENCOUNTER → 2022-12-08 14:37 | Outpatient (BNVA) | payer MEDICAID, SELFPAY | PROVIDERS: PCP Family Medicine; Visit Provider Thoracic Surgery (Cardiothoracic Vascular Surgery) | DX: I96 Gangrene, not elsewhere classified (principal); I87.2 Venous insufficiency (chronic) (peripheral); L89.892 Pressure ulcer of other site, stage 2 | CPT/HCPCS: 11042; 97597; A6252 ==

== ENCOUNTER → 2022-12-15 16:04 | Outpatient (BNVA) | payer MEDICAID, SELFPAY | PROVIDERS: PCP Family Medicine; Visit Provider Thoracic Surgery (Cardiothoracic Vascular Surgery) | DX: I87.2 Venous insufficiency (chronic) (peripheral) (principal); L97.822 Non-pressure chronic ulcer of other part of left lower leg with fat layer exposed; L89.892 Pressure ulcer of other site, stage 2; I96 Gangrene, not elsewhere classified | CPT/HCPCS: 97597; A6252 ==

== ENCOUNTER → 2022-12-19 12:13 | Outpatient (BNVA) | payer MEDICAID, SELFPAY | PROVIDERS: PCP Family Medicine; Visit Provider Thoracic Surgery (Cardiothoracic Vascular Surgery) | DX: I87.2 Venous insufficiency (chronic) (peripheral) (principal); L97.822 Non-pressure chronic ulcer of other part of left lower leg with fat layer exposed; Z09 Encounter for follow-up examination after completed treatment for conditions other than malignant neoplasm | CPT/HCPCS: 29581; A6252 ==

== ENCOUNTER → 2022-12-22 14:55 | Outpatient (BNVA) | payer MEDICAID, SELFPAY | PROVIDERS: PCP Family Medicine; Visit Provider Thoracic Surgery (Cardiothoracic Vascular Surgery) | DX: I87.2 Venous insufficiency (chronic) (peripheral) (principal); L97.822 Non-pressure chronic ulcer of other part of left lower leg with fat layer exposed; Z09 Encounter for follow-up examination after completed treatment for conditions other than malignant neoplasm | CPT/HCPCS: 11042; A6252 ==

== ENCOUNTER → 2022-12-29 14:59 | Outpatient (BNVA) | payer MEDICAID, SELFPAY | PROVIDERS: PCP Family Medicine; Visit Provider Thoracic Surgery (Cardiothoracic Vascular Surgery) | DX: I96 Gangrene, not elsewhere classified (principal); I87.2 Venous insufficiency (chronic) (peripheral); L97.822 Non-pressure chronic ulcer of other part of left lower leg with fat layer exposed | CPT/HCPCS: 11042; A6212; A6252 ==

== ENCOUNTER → 2023-01-05 11:49 | Outpatient (BNVA) | payer MEDICAID, SELFPAY | PROVIDERS: PCP Family Medicine; Visit Provider Nurse Practitioner Family | DX: I96 Gangrene, not elsewhere classified (principal); I87.2 Venous insufficiency (chronic) (peripheral); L97.822 Non-pressure chronic ulcer of other part of left lower leg with fat layer exposed | CPT/HCPCS: 97597; A6251 ==

== ENCOUNTER → 2023-01-12 12:07 | Outpatient (BNVA) | payer MEDICAID, SELFPAY | PROVIDERS: PCP Family Medicine; Visit Provider Nurse Practitioner Family | DX: I96 Gangrene, not elsewhere classified (principal); I87.2 Venous insufficiency (chronic) (peripheral); L97.822 Non-pressure chronic ulcer of other part of left lower leg with fat layer exposed | CPT/HCPCS: 97597; A6251 ==

== ENCOUNTER → 2023-01-19 10:39 | Outpatient (BNVA) | payer MEDICAID, SELFPAY | PROVIDERS: PCP Family Medicine; Visit Provider Thoracic Surgery (Cardiothoracic Vascular Surgery) | DX: I87.2 Venous insufficiency (chronic) (peripheral) (principal); L97.822 Non-pressure chronic ulcer of other part of left lower leg with fat layer exposed | CPT/HCPCS: 29581; A6212; A6252 ==

== ENCOUNTER → 2023-01-22 09:35 | Outpatient (BNVA) | payer MEDICAID, SELFPAY | PROVIDERS: PCP Family Medicine; Visit Provider Nurse Practitioner Family | DX: I87.2 Venous insufficiency (chronic) (peripheral) (principal); L97.822 Non-pressure chronic ulcer of other part of left lower leg with fat layer exposed | CPT/HCPCS: 97597; A6252 ==

== ENCOUNTER → 2023-01-29 08:58 | Outpatient (BNVA) | payer MEDICAID, SELFPAY | PROVIDERS: PCP Family Medicine; Visit Provider Nurse Practitioner Family | DX: I96 Gangrene, not elsewhere classified (principal); I87.2 Venous insufficiency (chronic) (peripheral); L97.822 Non-pressure chronic ulcer of other part of left lower leg with fat layer exposed | CPT/HCPCS: 11042; A6252 ==

== ENCOUNTER → 2023-02-03 15:07 | Outpatient (BNVA) | payer MEDICAID, SELFPAY | PROVIDERS: PCP Family Medicine; Visit Provider Podiatrist Foot & Ankle Surgery | DX: I73.9 Peripheral vascular disease, unspecified (principal); L60.3 Nail dystrophy; G62.9 Polyneuropathy, unspecified; L84 Corns and callosities | CPT/HCPCS: 11721 ==

== ENCOUNTER → 2023-02-05 09:07 | Outpatient (BNVA) | payer MEDICAID, SELFPAY | PROVIDERS: PCP Family Medicine; Visit Provider Nurse Practitioner Family | DX: I87.2 Venous insufficiency (chronic) (peripheral) (principal); L97.822 Non-pressure chronic ulcer of other part of left lower leg with fat layer exposed | CPT/HCPCS: 97597; A6252 ==

== ENCOUNTER → 2023-02-10 08:09 | Outpatient (BNVA) | payer MEDICAID, SELFPAY | PROVIDERS: PCP Family Medicine; Visit Provider Nurse Practitioner Family | DX: I87.2 Venous insufficiency (chronic) (peripheral) (principal); L97.822 Non-pressure chronic ulcer of other part of left lower leg with fat layer exposed | CPT/HCPCS: 97597; A6252 ==

== ENCOUNTER → 2023-02-17 09:01 | Outpatient (BNVA) | payer MEDICAID, SELFPAY | PROVIDERS: PCP Family Medicine; Visit Provider Nurse Practitioner Family | DX: I87.2 Venous insufficiency (chronic) (peripheral) (principal); L97.822 Non-pressure chronic ulcer of other part of left lower leg with fat layer exposed | CPT/HCPCS: 97597; A6251 ==

== ENCOUNTER → 2023-02-24 09:02 | Outpatient (BNVA) | payer MEDICAID, SELFPAY | PROVIDERS: PCP Family Medicine; Visit Provider Nurse Practitioner Family | DX: I87.2 Venous insufficiency (chronic) (peripheral) (principal); L97.812 Non-pressure chronic ulcer of other part of right lower leg with fat layer exposed; L97.822 Non-pressure chronic ulcer of other part of left lower leg with fat layer exposed | CPT/HCPCS: 97597; A6252 ==

== ENCOUNTER → 2023-03-03 09:05 | Outpatient (BNVA) | payer MEDICAID, SELFPAY | PROVIDERS: PCP Family Medicine; Visit Provider Nurse Practitioner Family | DX: I96 Gangrene, not elsewhere classified (principal); I87.2 Venous insufficiency (chronic) (peripheral); L97.822 Non-pressure chronic ulcer of other part of left lower leg with fat layer exposed | CPT/HCPCS: 97597; A6251; A6252 ==

== ENCOUNTER → 2023-03-10 09:17 | Outpatient (BNVA) | payer MEDICAID, SELFPAY | PROVIDERS: PCP Family Medicine; Visit Provider Nurse Practitioner Family | DX: I87.2 Venous insufficiency (chronic) (peripheral) (principal); I96 Gangrene, not elsewhere classified; L97.822 Non-pressure chronic ulcer of other part of left lower leg with fat layer exposed; L97.821 Non-pressure chronic ulcer of other part of left lower leg limited to breakdown of skin; L97.811 Non-pressure chronic ulcer of other part of right lower leg limited to breakdown of skin | CPT/HCPCS: 97597; A6251; A6252 ==

== ENCOUNTER → 2023-03-13 08:29 | Outpatient (BNVA) | payer MEDICAID, SELFPAY | PROVIDERS: PCP Family Medicine; Visit Provider Thoracic Surgery (Cardiothoracic Vascular Surgery) | DX: I87.2 Venous insufficiency (chronic) (peripheral) (principal); L97.822 Non-pressure chronic ulcer of other part of left lower leg with fat layer exposed | CPT/HCPCS: 29581; A6252 ==

== ENCOUNTER → 2023-03-17 09:39 | Outpatient (BNVA) | payer MEDICAID, SELFPAY | PROVIDERS: PCP Family Medicine; Visit Provider Nurse Practitioner Family | DX: I87.2 Venous insufficiency (chronic) (peripheral) (principal); L97.821 Non-pressure chronic ulcer of other part of left lower leg limited to breakdown of skin; L97.811 Non-pressure chronic ulcer of other part of right lower leg limited to breakdown of skin | CPT/HCPCS: 97597; A6252 ==

== ENCOUNTER → 2023-03-24 10:05 | Outpatient (BNVA) | payer MEDICAID, SELFPAY | PROVIDERS: PCP Family Medicine; Visit Provider Nurse Practitioner Family | DX: I87.2 Venous insufficiency (chronic) (peripheral) (principal); L97.822 Non-pressure chronic ulcer of other part of left lower leg with fat layer exposed; L97.812 Non-pressure chronic ulcer of other part of right lower leg with fat layer exposed | CPT/HCPCS: 97597; A6252 ==

== ENCOUNTER → 2023-03-31 09:56 | Outpatient (BNVA) | payer MEDICAID, SELFPAY | PROVIDERS: PCP Family Medicine; Visit Provider Nurse Practitioner Family | DX: I87.2 Venous insufficiency (chronic) (peripheral) (principal); L97.822 Non-pressure chronic ulcer of other part of left lower leg with fat layer exposed | CPT/HCPCS: 97597; A6252 ==

== ENCOUNTER → 2023-04-07 09:00 | Outpatient (BNVA) | payer MEDICAID, SELFPAY | PROVIDERS: PCP Family Medicine; Visit Provider Nurse Practitioner Family | DX: I96 Gangrene, not elsewhere classified (principal); I87.2 Venous insufficiency (chronic) (peripheral); L97.822 Non-pressure chronic ulcer of other part of left lower leg with fat layer exposed; Z09 Encounter for follow-up examination after completed treatment for conditions other than malignant neoplasm | CPT/HCPCS: 97597; A6251 ==

== ENCOUNTER → 2023-04-14 10:14 | Outpatient (BNVA) | payer MEDICAID, SELFPAY | PROVIDERS: PCP Family Medicine; Visit Provider Nurse Practitioner Family | DX: I96 Gangrene, not elsewhere classified (principal); I87.2 Venous insufficiency (chronic) (peripheral); L97.822 Non-pressure chronic ulcer of other part of left lower leg with fat layer exposed | CPT/HCPCS: 97597; A6252 ==

== ENCOUNTER → 2023-04-21 11:01 | Outpatient (BNVA) | payer MEDICAID, SELFPAY | PROVIDERS: PCP Family Medicine; Visit Provider Nurse Practitioner Family | DX: I96 Gangrene, not elsewhere classified (principal); I87.2 Venous insufficiency (chronic) (peripheral); L97.822 Non-pressure chronic ulcer of other part of left lower leg with fat layer exposed | CPT/HCPCS: 97597; A6252 ==

== ENCOUNTER → 2023-04-27 11:03 | Outpatient (BNVA) | payer MEDICAID, SELFPAY | PROVIDERS: PCP Family Medicine; Visit Provider Thoracic Surgery (Cardiothoracic Vascular Surgery) | DX: I87.2 Venous insufficiency (chronic) (peripheral) (principal); L97.822 Non-pressure chronic ulcer of other part of left lower leg with fat layer exposed | CPT/HCPCS: 29581; A6252 ==

== ENCOUNTER → 2023-05-05 09:07 | Outpatient (BNVA) | payer MEDICAID, SELFPAY | PROVIDERS: PCP Family Medicine; Visit Provider Nurse Practitioner Family | DX: I87.2 Venous insufficiency (chronic) (peripheral) (principal); L97.822 Non-pressure chronic ulcer of other part of left lower leg with fat layer exposed; Z09 Encounter for follow-up examination after completed treatment for conditions other than malignant neoplasm | CPT/HCPCS: 97597; 97598; A6252 ==

== ENCOUNTER → 2023-05-12 09:02 | Outpatient (BNVA) | payer MEDICAID, SELFPAY | PROVIDERS: PCP Family Medicine; Visit Provider Nurse Practitioner Family | DX: I96 Gangrene, not elsewhere classified (principal); I87.2 Venous insufficiency (chronic) (peripheral); L97.822 Non-pressure chronic ulcer of other part of left lower leg with fat layer exposed | CPT/HCPCS: 97597; A6251 ==

== ENCOUNTER → 2023-05-19 09:57 | Outpatient (BNVA) | payer MEDICAID, SELFPAY | PROVIDERS: PCP Family Medicine; Visit Provider Nurse Practitioner Family | DX: I87.2 Venous insufficiency (chronic) (peripheral) (principal); L97.822 Non-pressure chronic ulcer of other part of left lower leg with fat layer exposed; I73.9 Peripheral vascular disease, unspecified; L60.3 Nail dystrophy; L84 Corns and callosities; G62.9 Polyneuropathy, unspecified | CPT/HCPCS: 11056; 11721; 97597; A6252 ==

== ENCOUNTER → 2023-05-26 09:01 | Outpatient (BNVA) | payer MEDICAID, SELFPAY | PROVIDERS: PCP Family Medicine; Visit Provider Nurse Practitioner Family | DX: I96 Gangrene, not elsewhere classified (principal); I87.2 Venous insufficiency (chronic) (peripheral); L97.822 Non-pressure chronic ulcer of other part of left lower leg with fat layer exposed | CPT/HCPCS: 97597; A6252 ==

== ENCOUNTER → 2023-06-01 11:05 | Outpatient (BNVA) | payer MEDICAID, SELFPAY | PROVIDERS: PCP Family Medicine; Visit Provider Thoracic Surgery (Cardiothoracic Vascular Surgery) | DX: I96 Gangrene, not elsewhere classified (principal); I87.2 Venous insufficiency (chronic) (peripheral); L97.822 Non-pressure chronic ulcer of other part of left lower leg with fat layer exposed | CPT/HCPCS: 29581; 97597; A6252 ==

== ENCOUNTER → 2023-06-09 10:00 | Outpatient (BNVA) | payer MEDICAID, SELFPAY | PROVIDERS: PCP Family Medicine; Visit Provider Nurse Practitioner Family | DX: I96 Gangrene, not elsewhere classified (principal); I87.2 Venous insufficiency (chronic) (peripheral); L97.822 Non-pressure chronic ulcer of other part of left lower leg with fat layer exposed | CPT/HCPCS: 97597; A6252 ==

== ENCOUNTER → 2023-06-16 09:57 | Outpatient (BNVA) | payer MEDICAID, SELFPAY | PROVIDERS: PCP Family Medicine; Visit Provider Nurse Practitioner Family | DX: I96 Gangrene, not elsewhere classified (principal); I87.2 Venous insufficiency (chronic) (peripheral); L97.822 Non-pressure chronic ulcer of other part of left lower leg with fat layer exposed | CPT/HCPCS: 97597; A6252 ==

== ENCOUNTER → 2023-06-23 08:57 | Outpatient (BNVA) | payer MEDICAID, SELFPAY | PROVIDERS: PCP Family Medicine; Visit Provider Nurse Practitioner Family | DX: I96 Gangrene, not elsewhere classified (principal); I87.2 Venous insufficiency (chronic) (peripheral); L97.822 Non-pressure chronic ulcer of other part of left lower leg with fat layer exposed; L89.892 Pressure ulcer of other site, stage 2 | CPT/HCPCS: 97597; A6252 ==

== ENCOUNTER → 2023-07-01 11:02 | Outpatient (BNVA) | payer MEDICAID, SELFPAY | PROVIDERS: PCP Family Medicine; Visit Provider Thoracic Surgery (Cardiothoracic Vascular Surgery) | DX: I87.2 Venous insufficiency (chronic) (peripheral) (principal); L97.822 Non-pressure chronic ulcer of other part of left lower leg with fat layer exposed | CPT/HCPCS: 29581; A6253 ==

== ENCOUNTER → 2023-07-07 09:03 | Outpatient (BNVA) | payer MEDICAID, SELFPAY | PROVIDERS: PCP Family Medicine; Visit Provider Nurse Practitioner Family | DX: I96 Gangrene, not elsewhere classified (principal); I87.2 Venous insufficiency (chronic) (peripheral); L97.822 Non-pressure chronic ulcer of other part of left lower leg with fat layer exposed; L89.892 Pressure ulcer of other site, stage 2 | CPT/HCPCS: 29581; 97597; 97598; A6251; A6252 ==

== ENCOUNTER → 2023-07-14 10:07 | Outpatient (BNVA) | payer MEDICAID, SELFPAY | PROVIDERS: PCP Family Medicine; Visit Provider Nurse Practitioner Family | DX: I96 Gangrene, not elsewhere classified (principal); I87.2 Venous insufficiency (chronic) (peripheral); L97.822 Non-pressure chronic ulcer of other part of left lower leg with fat layer exposed; L89.892 Pressure ulcer of other site, stage 2 | CPT/HCPCS: 11042; 97597; A6251; A6252 ==

== ENCOUNTER 2023-07-21 10:36 | Emergency (ER) | payer MEDICAID, SELFPAY ==
[2023-07-21 10:39] VITALS: BP 179/96; PULSE 99; RESP 18; TEMP 37.2; O2SAT 94; BMI 79.6
[2023-07-21 11:01] VITALS: BP 151/98; PULSE 96; RESP 22; TEMP 37.2; O2SAT 95
[2023-07-21 11:11] LABS: Basophils % 0.4 %; Eosinophils % 0.2 %; Hematocrit 44.4 % (36-47); Lymphocytes # 0.4 10^3/uL (0.8-4.8); Lymphocytes % 7.7 %; Mean Corpuscular HGB Conc 31.1 g/dL (30-55); Mean Corpuscular Hemoglobin 28.4 pg (27-33); Mean Corpuscular Volume 91.4 fl (85-98); Mean Platelet Volume 9.6 fL (7.4-10.4); Monocytes # 0.3 10^3/uL (0.2-0.9); Monocytes % 6.2 %; Neutrophils % 85.1 %; Nucleated Red Blood Cells % 0 %; Platelet Count 211 10^3/cmm (157-399); Red Blood Count 4.86 10^6/uL (3.85-5.65); Red Cell Distribution Width 16.8 % (12.1-15.1); White Blood Count 5.17 10^3/uL (3.29-11.43)
--- NOTE | 2023-07-21 11:12 | ED_ITS ---
HPI - General Adult General: Chief complaint: General Medical Stated complaint: Wound Care Time Seen by Provider: 07/21/23 10:37 Source: patient Mode of arrival: EMS History of Present Illness: 63-year-old female presents emergency room with complaints of leg swelling. She has been seeing wound clinic on and off for years. She had wraps on her legs today slipped down over the weekend with increased lower extremity swelling with some skin breakdown particularly on the left leg. She not had any fever sweats or chills. No chest pain no new unusual shortness of breath Onset (ago): day(s) Location: left, right and lower extremity Severity: severe Relieving factors: none Exacerbating factors: none Associated symptoms: Deny chest pain, confusion, cough, diaphoresis, decreased appetite, dyspnea, fevers/chills, headache(s), malaise, nausea, rash, pal pitations, seizures, short of breath, syncope, vomiting, weakness or other Treatments prior to arrival: none Review of Systems Const: Denies: fever(s), chills, malaise or diaphoresis Card: Denies: chest pain, palpitations or syncope Resp: Denies: dyspnea GI: Denies: nausea or vomiting : Denies: flank pain, difficulty voiding, dysuria, urinary frequency or urinary urgency Skin/Breast: Denies: rash Neuro: Denies: headache(s) or confusion PFS ED PFSH: Medical History DJD (degenerative joint disease), lumbar DVT (deep venous thrombosis) Dyslipidemia History of DVT of lower extremity HTN (hypertension) Lower extremity edema Narcolepsy Obesity BROWN (obstructive sleep apnea) Surgical History Post corneal transplant S/P section S/P IVC filter Status post tubal ligation Family History Father Bleeding disorder CAD (coronary artery disease) Diabetes Stroke Family/Other CAD (coronary artery disease) Cancer Diabetes Stroke Mother Cancer Other Hyperlipidemia Hypertension Denies family history of Clotting disorder Dementia Chronic kidney disease (CKD) Suicide Anesthesia complication Lung disease Social History Smoking and tobacco status: light tobacco smoker cigarettes [ Other cigarette details: she is working on quitting] Second hand smoke exposure: No Smoking risk assessment/counseling performed?: Yes Alcohol intake: never Desire information about alcohol rehabilitation?: No Counseling given: No Substance/Drug Use: unknown Desire information about substance/drug rehabilitation?: No Counseling given: No Adopted: No Caregiver/support person: Yes ( assist) Lives independently: Yes Household members: spouse Marital status: service: No Current occupational status: disabled Pets and animals: Yes Pets & animals: dog(s) Do you think of yourself as: Straight/Heterosexual Current gender identity: Female Physical Exam Const: GENERAL APPEARANCE: cooperative and comfortable ORIENTATION/CONSCIOUSNESS: Yes awake, Yes oriented to person, Yes oriented to place and Yes oriented to time HENMT: COMMON NORMALS: normocephalic, atraumatic and hearing grossly normal bilaterally HEAD & SCALP: normocephalic and atraumatic Resp: COMMON NORMALS: normal respiratory effort, No retractions, No use of accessory muscles and clear to auscultation bilaterally AUSCULTATION: clear to auscultation bilaterally Cardio: COMMON NORMALS: regular rate, regular rhythm and No murmurs present (Cardio) RATE: regular rate RHYTHM: regular rhythm GI: COMMON NORMALS: Soft to palpation and No hepatosplenomegaly present AUSCULTATION: Yes normoactive bowel sounds PALPATION: Yes Soft to palpation, No Tenderness to palpation present (GI), No Guarding due to palpation present (GI) and Yes No hepatosplenomegaly present Extremity: OTHER: Severe edema lower extremities which is chronic there is breakdown of the skin and weeping serous fluid particularly more in problems on the left leg. Several open skin wounds from venous stasis edema ulcerations. Neuro: SENSORIUM/ORIENTATION: Yes oriented to person, Yes oriented to place and Yes oriented to time Skin: COMMON NORMALS: no rashes or lesions noted GENERAL SKIN EXAM: no rashes or lesions noted Course Vital Signs: Vital signs: Vital Signs Temperature 99.0 F 07/21/23 11:01 Pulse Rate 96 07/21/23 11:01 Respiratory Rate 25 H 07/21/23 16:23 Blood Pressure 151/98 07/21/23 11:01 Pulse Oximetry 95 07/21/23 11:01 Oxygen Delivery Me thod Room Air 07/21/23 11:01 MDM - General Adult Medical Decision Making We contacted the wound care clinic wanted to have her return to the wound care clinic to have wraps placed they felt these were not necessary at this time and her quested that she return to the clinic in 1 week for initiation of wraps at that time. We will start her on antibiotics as well as Lasix potassium supplement we did give her a dose of Lasix here. Encouraged her to elevate legs apply topical antibiotic ointment to the wounds twice daily. Recheck if has fever sweats chills or worsening symptoms. Medical Records I reviewed the patient's medical records. Lab Data I reviewed the patient's lab results. 07/21/23 11:02 07/21/23 11:02 Laboratory Results WBC 5.17 10^3/uL (3.29-11.43) 07/21/23 11:02 RBC 4.86 10^6/uL (3.85-5.65) 07/21/23 11:02 Hgb 13.80 g/dL (11.27-16.99) 07/21/23 11:02 Hct 44.4 % (36-47) 07/21/23 11:02 MCV 91.4 fl (85-98) 07/21/23 11:02 MCH 28.4 pg (27-33) 07/21/23 11:02 MCHC 31.1 g/dL (30-55) 07/21/23 11:02 RDW 16.8 % (12.1-15.1) H 07/21/23 11:02 Plt Count 211 10^3/cmm (157-399) 07/21/23 11:02 MPV 9.6 fL (7.4-10.4) 07/21/23 11:02 Neut % (Auto) 85.1 % 07/21/23 11:02 Lymph % (Auto) 7.7 % 07/21/23 11:02 Menard % (Auto) 6.2 % 07/21/23 11:02 Eos % (Auto) 0.2 % 07/21/23 11:02 Baso % (Auto) 0.4 % 07/21/23 11:02 Neut # (Auto) 4.40 10^3/uL (1.8-7.7) 07/21/23 11:02 Lymph # (Auto) 0.4 10^3/uL (0.8-4.8) L 07/21/23 11:02 Menard # (Auto) 0.3 10^3/uL (0.2-0.9) 07/21/23 11:02 Eos # (Auto) 0.0 10^3/uL (0.0-0.8) 07/21/23 11:02 Baso # (Auto) 0.0 10^3/uL (0.0-0.1) 07/21/23 11:02 Nucleated RBC % (auto) 0 % 07/21/23 11:02 Nucleated RBCs # 0.0 /100WBC 07/21/23 11:02 Sodium 139 mmol/L (136-145) 07/21/23 11:02 Potassium 4.0 mmol/L (3.5-5.1) 07/21/23 11:02 Chloride 102 mmol/L (98-107) 07/21/23 11:02 Carbon Dioxide 27 mmol/L (22-29) 07/21/23 11:02 Anion Gap 14.0 (5-19) 07/21/23 11:02 BUN 17 mg/dL (8-23) 07/21/23 11:02 Creatinine 0.5 mg/dL (0.5-0.9) 07/21/23 11:02 GFR Calculation 125.4 mL/min (90-130) 07/21/23 11:02 Glucose 88 mg/dL (65-115) 07/21/23 11:02 Calculated Osmolality 289 mOsm/kg (285-295) 07/21/23 11:02 Calcium 8.9 mg/dL (8.5-10.5) 07/21/23 11:02 Total Bilirubin 0.6 mg/dL (0.15-1.2) 07/21/23 11:02 AST 10 U/L (0-32) 07/21/23 11:02 ALT 10 U/L (0-33) 07/21/23 11:02 Alkaline Phosphatase 70 U/L (35-105) 07/21/23 11:02 Total Protein 7.1 g/dL (6.6-8.7) 07/21/23 11:02 Albumin 3.4 g/dL (3.5-5.2) L 07/21/23 11:02 Globulin 3.7 g/dL (1.3-4.6) 07/21/23 11:02 All radiology interpretation(s) finalized by discharge Discharge Plan Discharge Patient Disposition: Home Clinical Impression: Leg edema, PVD (peripheral vascular disease), Peripheral neuropathy, Cellulitis Condition: Stable Prescriptions: New doxycycline hyclate 100 mg capsule 100 mg PO BID 10 Days Qty: 20 0RF furosemide 40 mg tablet 40 mg PO DAILY Qty: 30 0RF potassium chloride 20 mEq tablet,ER particles/crystals 20 meq PO DAILY Qty: 30 0RF No Action aspirin 325 mg tablet 325 mg PO DAILY acetaminophen 500 mg tablet 1,000 mg PO Q6H PRN (Reason: Pain) lidocaine 5 % gel See Rx Instructions .ROUTE .COMPLEX Qty: 113 0RF Rx Instructions: apply to affected painful skin area every 4 hours prn zinc oxide 15 % cream See Rx Instructions topical TID Qty: 99 5RF Rx Instructions: apply to affect skin areas tid for skin protection prn (DME) cpap check and replace See Rx Instructions .Route .MEDSUPPLY Qty: 1 0RF Rx Instructions: As directed (DME) wheel chair, large See Rx Instructions .Route .MEDSUPPLY Qty: 1 0RF Rx Instructions: As directed Ozempic 0.25 mg or 0.5 mg (2 mg/3 mL) pen injector 0.25 mg SUBCUT .weekly Qty: 3 3RF Rx Instructions: (not covered by insurance per pt states not taking 07/21/23) ketoconazole 2 % shampoo See Rx Instructions .ROUTE .COMPLEX Rx Instructions: Lather into scalp 2 times weekly as needed. Allow to sit on scalp for 5 minutes before rinsing. triamcinolone acetonide 0.1 % ointment See Rx Instructions .ROUTE .COMPLEX Rx Instructions: apply to legs BID M-F and off on weekends until follow-up ammonium lactate 12 % cream See Rx Instructions .ROUTE .COMPLEX Rx Instructions: 1 applic topically bid start after using triamcinolone for 2 weeks then use both until f/u as needed clobetasol 0.05 % ointment See Rx Instructions .ROUTE .COMPLEX Rx Instructions: apply to affected areas no more than 2 weeks/mo prn alternating with triamcinolone as needed hydrocortisone 2.5 % ointment See Rx Instructions .ROUTE .COMPLEX Rx Instructions: To red skin folds twice daily Thursday through Thursday until follow-up appointment in 6 weeks as needed ciclopirox 0.77 % cream See Rx Instructions .ROUTE .COMPLEX Rx Instructions: Apply twice daily to skin folds on legs x4 weeks then as needed for flares [place]-Smoothe/FS Scalp Oil 0.01 % oil See Rx Instructions .ROUTE .COMPLEX Rx Instructions: Apply to scalp 2-3 times weekly as needed Discharge Orders: Discharge ED (Routine); Ordered 07/21/23 Ordered By: Rakan Starks Referrals: Aki Marmolejo, [Primary Care Provider] - Discharge Diet: Usual diet Discharge Activity: Resume usual activity Patient Instructions: Opioid Safety, Pain Management Activity Restrictions/Additional Instructions: Follow-up with wound care. We did contact the wound care office they do not recommend wraps at this time to resume the wraps next week at your regularly scheduled appointment. Lasix 40 mg daily potassium supplement 20 mill equivalents daily. Follow-up with your primary care doctor in the next 3 days for repeat BMP and reevaluation. Coding Level of Care Code ED [employer] Turret Lathe Operator for Dedrick Mayen
--- NOTE | 2023-07-21 11:20 | USCV_ITS ---
GiovannyBeverly gallegos Age: 63 Gender: F : 1960 Exam Date: 07/21/2023 11:40 Ordering Phys: Rakan Starks DO Technologist: Chan Zhang [place] [facility] [place] leg pain and swelling PROCEDURES: The venous duplex Doppler examination of both lower extremities was performed in the standard fashion. The following venous structures were evaluated: common femoral vein, profunda vein, proximal portion of the greater saphenous vein, superficial femoral vein, and the popliteal vein. FINDINGS: Normal 2-D Doppler and augmentation and compressibility throughout the lower extremity venous structures. Additional imaging through the proximal calf veins also reveals no thrombus. Limited evaluation of the greater saphenous vein is patent with no thrombus. CONCLUSIONS Technically very difficult exam. No DVT bilateral lower extremities. Bilateral subcutaneous edema. Dr. Sandra Dumont DO (Electronically Signed) Final Date: 21 July 2023 14:47 S
[2023-07-21 11:31] LABS: Alanine Aminotransferase 10 U/L (0-33); Albumin Level 3.4 g/dL (3.5-5.2); Alkaline Phosphatase 70 U/L (35-105); Aspartate Amino Transferase 10 U/L (0-32); Blood Urea Nitrogen 17 mg/dL (8-23); Calcium 8.9 mg/dL (8.5-10.5); Carbon Dioxide 27 mmol/L (22-29); Chloride 102 mmol/L (98-107); Globulin 3.7 g/dL (1.3-4.6); Glomerular Filtration Rate 125.4 mL/min (90-130); Glucose 88 mg/dL (65-115); Osmolality Calculated 289 mOsm/kg (285-295); Sodium 139 mmol/L (136-145); Total Bilirubin 0.6 mg/dL (0.15-1.2); Total Protein 7.1 g/dL (6.6-8.7)
--- NOTE | 2023-07-21 11:37 | PC.PHAR ---
pt states she takes care of her own medications-pt states she uses her creams/ointments prn except triamcinolone ointment-pt states her ozempic is not covered by her insurance and states she is not going to take it
[2023-07-21] MEDS: FUROsemide 10 mg/mL SDV 10mL 60 MG IVP (12:30)
--- NOTE | 2023-07-21 13:59 | PC.NURSE ---
This nurse was assisting patient off the bedside commode back to the bed and patient had difficulty getting up. This nurse was helping patient off commode and my name badge rubbed up against her left arm causing a skin tear. Area was cleansed and covered with a bandage. Patient care nurse aware and Dr. Starks.
--- NOTE | 2023-07-21 15:22 | PC.NURSE ---
discharge delayed d/t transportation issues
[2023-07-21 15:23] VITALS: RESP 25
[2023-07-21 16:23] VITALS: RESP 25
== END 2023-07-21 16:25 | disposition home or self-care (01) ==
PROVIDERS: Emergency Provider Family Medicine; PCP Family Medicine
DX: I73.9 Peripheral vascular disease, unspecified (principal); R60.0 Localized edema; G62.9 Polyneuropathy, unspecified; L03.116 Cellulitis of left lower limb; E78.5 Hyperlipidemia, unspecified; I10 Essential (primary) hypertension; F17.210 Nicotine dependence, cigarettes, uncomplicated; Z79.82 Long term (current) use of aspirin; I96 Gangrene, not elsewhere classified; I87.2 Venous insufficiency (chronic) (peripheral); L97.822 Non-pressure chronic ulcer of other part of left lower leg with fat layer exposed; L89.892 Pressure ulcer of other site, stage 2
CPT/HCPCS: 36415; 80053; 85025; 87040; 93970; 96374; 99213; 99284; A6210; J1940

== ENCOUNTER → 2023-08-04 09:18 | Outpatient (BNVA) | payer MEDICAID, SELFPAY | PROVIDERS: PCP Family Medicine; Visit Provider Nurse Practitioner Family | DX: I87.2 Venous insufficiency (chronic) (peripheral) (principal); L97.822 Non-pressure chronic ulcer of other part of left lower leg with fat layer exposed; L89.892 Pressure ulcer of other site, stage 2; I89.0 Lymphedema, not elsewhere classified | CPT/HCPCS: 97597; 97598; A6253 ==

== ENCOUNTER → 2023-08-06 15:18 | Outpatient (BNVA) | payer MEDICAID, SELFPAY | PROVIDERS: PCP Family Medicine; Visit Provider Nurse Practitioner Family | DX: I87.2 Venous insufficiency (chronic) (peripheral) (principal); L97.822 Non-pressure chronic ulcer of other part of left lower leg with fat layer exposed | CPT/HCPCS: 29581; A6252 ==

== ENCOUNTER → 2023-08-11 08:53 | Outpatient (BNVA) | payer MEDICAID, SELFPAY | PROVIDERS: PCP Family Medicine; Visit Provider Nurse Practitioner Family | DX: I87.2 Venous insufficiency (chronic) (peripheral) (principal); L97.821 Non-pressure chronic ulcer of other part of left lower leg limited to breakdown of skin; L89.892 Pressure ulcer of other site, stage 2; I89.0 Lymphedema, not elsewhere classified | CPT/HCPCS: 97597; 97598 ==

== ENCOUNTER 2023-09-01 00:01 | Inpatient (IN) | payer MEDICAID, SELFPAY ==
[2023-09-01] VITALS (56 sets, daily range): BP systolic 96–163; BP diastolic 64–102; PULSE 81–104; RESP 14–36; TEMP 36.5–37.2; O2SAT 86–100; BMI 85.9
[2023-09-01 00:27] LABS: Basophils % 0.4 %; Eosinophils # 0.1 10^3/uL (0.0-0.8); Eosinophils % 0.9 %; Hematocrit 43.1 % (36-47); Lymphocytes # 0.7 10^3/uL (0.8-4.8); Lymphocytes % 9.4 %; Mean Corpuscular HGB Conc 31.6 g/dL (30-55); Mean Corpuscular Hemoglobin 29.1 pg (27-33); Mean Corpuscular Volume 92.1 fl (85-98); Mean Platelet Volume 9.8 fL (7.4-10.4); Monocytes # 0.6 10^3/uL (0.2-0.9); Monocytes % 8.1 %; Neutrophils # 6.23 10^3/uL (1.8-7.7); Neutrophils % 81.1 %; Nucleated Red Blood Cells % 0 %; Platelet Count 213 10^3/cmm (157-399); Red Blood Count 4.68 10^6/uL (3.85-5.65); Red Cell Distribution Width 17.1 % (12.1-15.1); White Blood Count 7.68 10^3/uL (3.29-11.43)
--- NOTE | 2023-09-01 00:35 | ED_ITS ---
HPI - Extremity Problem General: Chief complaint: Extremity Problem,Nontraumatic Stated complaint: lower extremity edema Time Seen by Provider: 09/01/23 00:05 History of Present Illness: patient presents to the ER with complaints of bilateral lower leg swelling. Patient states she cannot ambulate with a walker as she usually does. Patient does have a history of lymphedema and was going to the wound clinic chronically. Something happened during the last several weeks she has not been able to go and visit was referred to a different wound clinic who did not take her insurance. Patient has been without her wraps on her bilateral lower extremities for at least several days. Patient says she noticed increased swelling and redness and irritation in both lower legs since this time. Patient was previously seen here about a month ago for similar instances but with oozing and was sent home on antibiotics. Said she did get better but that was when she was going to the wound clinic also. Review of Systems General: Reports: 10 or more systems reviewed and unremarkable except in HPI and below PFSH ED PFSH: Medical History DJD (degenerative joint disease), lumbar DVT (deep venous thrombosis) Dyslipidemia History of DVT of lower extremity HTN (hypertension) Lower extremity edema Narcolepsy Obesity BROWN (obstructive sleep apnea) Surgical History Post corneal transplant S/P section S/P IVC filter Status post tubal ligation Family History Father Bleeding disorder CAD (coronary artery disease) Diabetes Stroke Family/Other CAD (coronary artery disease) Cancer Diabetes Stroke Mother Cancer Other Hyperlipidemia Hypertension Denies family history of Clotting disorder Dementia Chronic kidney disease (CKD) Suicide Anesthesia complication Lung disease Social History Smoking and tobacco/nicotine status: light tobacco/nicotine user cigarettes [ Other cigarette details: she is working on quitting] Second hand smoke exposure: No Alcohol intake: never Substance/Drug Use: unknown Adopted: No Caregiver/support person: Yes ( assist) Lives independently: Yes Household members: spouse Marital status: service: No Current occupational status: disabled Pets and animals: Yes Pets & animals: dog(s) Do you think of yourself as: Straight/Heterosexual Current gender identity: Female Physical Exam Const: COMMON NORMALS: no acute distress, average body habitus, patient oriented x3, no limitations, healthy appearing, alert and well nourished HENMT: COMMON NORMALS: normocephalic, atraumatic, hearing grossly normal bilaterally, external ears normal, Normal external nose present, moist oral mucous membranes and oropharynx normal HEAD & SCALP: normocephalic and atraumatic NOSE: Normal external nose present EXTERNAL EAR: Yes external ears normal Neck/C-Spine: COMMON NORMALS: no JVD Chest: COMMONS NORMALS: normal inspection of the chest and normal palpation of entire chest wall Resp: COMMON NORMALS: normal respiratory effort, No retractions, No use of accessory muscles and clear to auscultation bilaterally AUSCULTATION: clear to auscultation bilaterally Cardio: COMMON NORMALS: no JVD, regular rate, regular rhythm, S1 normal heart sound present, S2 normal heart sound present, No gallops present (Cardio), No clicks present (Cardio), No murmurs present (Cardio) and No rub (Cardio) RATE: regular rate RHYTHM: regular rhythm HEART SOUNDS: S1 normal heart sound present and S2 normal heart sound present GI: COMMON NORMALS: Normal to inspection, nondistended, normoactive bowel sounds present ( Morbidly obese), Soft to palpation, non-tender, No hepatosplenomegaly present and no masses PALPATION: Yes Soft to palpation and Yes No hepatosplenomegaly present Extremity: NARRATIVE EXTREMITY EXAM: Bilateral lower extremities red erythematous chronic dry scaly skin with multiple wounds in various stages of healing. This description starts at the toes and works way at least up to mid thigh Neuro: COMMON NORMALS: patient oriented x3 SENSORIUM/ORIENTATION: Yes alert Course Vital Signs: Vital signs: Vital Signs Temperature 98.9 F 09/01/23 00:05 Pulse Rate 94 09/01/23 04:05 Respiratory Rate 22 H 09/01/23 04:05 Blood Pressure 131/84 09/01/23 04:05 Pulse Oximetry 100 09/01/23 04:05 Oxygen Delivery Me thod Room Air 09/01/23 00:31 Oxygen Flow Rate 2 09/01/23 00:05 MDM - Extremity (Nontraumatic) Medical Decision Making presents to the ER with worsening edema and swelling to bilateral lower extremities. Patient has not been able get her wraps on for several days. Lab work and chest x-ray was essentially benign. Other than a mildly elevated BNP of 658. Patient will be placed in observation and IV diuretics will be used to try to diurese off some of the excess fluid. Differential Diagnosis Likely lower extremity edema; Unlikely herpes zoster, gout, cellulitis, superficial thrombophlebitis, deep venous thrombosis of upper extremity or deep vein thrombosis of lower extremity Medical Records I reviewed the patient's medical records. Lab Data I reviewed the patient's lab results. 09/01/23 00:22 09/01/23 00:22 Radiology Impressions Chest X-Ray 09/01/23 01:05 IMPRESSION: 1. Evaluation limited by patient body habitus. 2. No acute findings. Laboratory Results WBC 7.68 10^3/uL (3.29-11.43) 09/01/23 00:22 RBC 4.68 10^6/uL (3.85-5.65) 09/01/23 00:22 Hgb 13.60 g/dL (11.27-16.99) 09/01/23 00:22 Hct 43.1 % (36-47) 09/01/23 00:22 MCV 92.1 fl (85-98) 09/01/23 00:22 MCH 29.1 pg (27-33) 09/01/23 00: MCHC 31.6 g/dL (30-55) 09/01/23 00:22 RDW 17.1 % (12.1-15.1) H 09/01/23 00: Plt Count 213 10^3/cmm (157-399) 09/01/23 00:22 MPV 9.8 fL (7.4-10.4) 09/01/23 00:22 Neut % (Auto) 81.1 % 09/01/23 00:22 Lymph % (Auto) 9.4 % 09/01/23 00:22 [place] % (Auto) 8.1 % 09/01/23 00:22 Eos % (Auto) 0.9 % 09/01/23 00:22 Baso % (Auto) 0.4 % 09/01/23 00:22 Neut # (Auto) 6.23 10^3/uL (1.8-7.7) 09/01/23 00:22 Lymph # (Auto) 0.7 10^3/uL (0.8-4.8) L 09/01/23 00:22 [place] # (Auto) 0.6 10^3/uL (0.2-0.9) 09/01/23 00:22 Eos # (Auto) 0.1 10^3/uL (0.0-0.8) 09/01/23 00:22 Baso # (Auto) 0.0 10^3/uL (0.0-0.1) 09/01/23 00:22 Nucleated RBC % (auto) 0 % 09/01/23 00:22 Nucleated RBCs # 0.0 /100WBC 09/01/23 00:22 Sodium 141 mmol/L (136-145) 09/01/23 00:22 Potassium 4.2 mmol/L (3.5-5.1) 09/01/23 00:22 Chloride 103 mmol/L (98-107) 09/01/23 00:22 Carbon Dioxide 29 mmol/L (22-29) 09/01/23 00:22 Anion Gap 13.2 (5-19) 09/01/23 00:22 BUN 20 mg/dL (8-23) 09/01/23 00:22 Creatinine 0.8 mg/dL (0.5-0.9) 09/01/23 00:22 GFR Calculation 72.9 mL/min (90-130) L 09/01/23 00:22 Glucose 107 mg/dL (65-115) 09/01/23 00:22 Calculated Osmolality 295 mOsm/kg (285-295) 09/01/23 00:22 Calcium 9.0 mg/dL (8.5-10.5) 09/01/23 00:22 Magnesium 2.2 mg/dL (1.7-2.3) 09/01/23 00:22 Total Bilirubin 0.5 mg/dL (0.15-1.2) 09/01/23 00:22 AST 11 U/L (0-32) 09/01/23 00:22 ALT 10 U/L (0-33) 09/01/23 00:22 Alkaline Phosphatase 65 U/L (35-105) 09/01/23 00:22 NT-Pro-B Natriuret Pep 658 pg/mL (0-125) H 09/01/23 00:22 Total Protein 6.8 g/dL (6.6-8.7) 09/01/23 00:22 Albumin 3.4 g/dL (3.5-5.2) L 09/01/23 00:22 Globulin 3.4 g/dL (1.3-4.6) 09/01/23 00:22 All radiology interpretation(s) finalized by discharge EKG Data EKG 1: I personally reviewed and interpreted this EKG as follows: EKG interpretation date: 09/01/23 EKG interpretation time: 02:27 Prior EKG tracings: not available for review Interpretation: EKG shows ventricular rate 96 bpm, HI interval 144, QRS duration 93, QTc of 428, sinus rhythm, Discharge Plan Discharge Patient Disposition: Placed in Observation Clinical Impression: Lower extremity edema, Generalized muscle weakness, Morbid obesity Condition: Stable Prescriptions: No Action aspirin 325 mg tablet 325 mg PO DAILY acetaminophen 500 mg tablet 1,000 mg PO Q6H PRN (Reason: Pain) lidocaine 5 % gel See Rx Instructions .ROUTE .COMPLEX Qty: 113 0RF Rx Instructions: apply to affected painful skin area every 4 hours prn zinc oxide 15 % cream See Rx Instructions topical TID Qty: 99 5RF Rx Instructions: apply to affect skin areas tid for skin protection prn (DME) cpap check and replace See Rx Instructions .Route .MEDSUPPLY Qty: 1 0RF Rx Instructions: As directed (DME) wheel chair, large See Rx Instructions .Route .MEDSUPPLY Qty: 1 0RF Rx Instructions: As directed Ozempic 0.25 mg or 0.5 mg (2 mg/3 mL) pen injector 0.25 mg SUBCUT .weekly Qty: 3 3RF Rx Instructions: (not covered by insurance per pt states not taking 07/21/23) furosemide 40 mg tablet 40 mg PO DAILY Qty: 30 3RF potassium chloride 20 mEq tablet,ER particles/crystals 20 meq PO DAILY Qty: 30 3RF ketoconazole 2 % shampoo See Rx Instructions .ROUTE .COMPLEX Rx Instructions: Lather into scalp 2 times weekly as needed. Allow to sit on scalp for 5 minutes before rinsing. triamcinolone acetonide 0.1 % ointment See Rx Instructions .ROUTE .COMPLEX Rx Instructions: apply to legs BID M-F and off on weekends until follow-up ammonium lactate 12 % cream See Rx Instructions .ROUTE .COMPLEX Rx Instructions: 1 applic topically bid start after using triamcinolone for 2 weeks then use both until f/u as needed clobetasol 0.05 % ointment See Rx Instructions .ROUTE .COMPLEX Rx Instructions: apply to affected areas no more than 2 weeks/mo prn alternating with triamcinolone as needed hydrocortisone 2.5 % ointment See Rx Instructions .ROUTE .COMPLEX Rx Instructions: To red skin folds twice daily Thursday through Thursday until follow-up appoi ntment in 6 weeks as needed ciclopirox 0.77 % cream See Rx Instructions .ROUTE .COMPLEX Rx Instructions: Apply twice daily to skin folds on legs x4 weeks then as needed for flares [place]-Smoothe/FS Scalp Oil 0.01 % oil See Rx Instructions .ROUTE .COMPLEX Rx Instructions: Apply to scalp 2-3 times weekly as needed Referrals: Aki Marmolejo DO [Primary Care Provider] - Coding Level of Care Code ED Certified Registered Nurse Anesthetist for Dedrick Mayen
[2023-09-01 00:53] LABS: Alanine Aminotransferase 10 U/L (0-33); Albumin Level 3.4 g/dL (3.5-5.2); Alkaline Phosphatase 65 U/L (35-105); Anion Gap 13.2 (5-19); Aspartate Amino Transferase 11 U/L (0-32); Blood Urea Nitrogen 20 mg/dL (8-23); Carbon Dioxide 29 mmol/L (22-29); Chloride 103 mmol/L (98-107); Globulin 3.4 g/dL (1.3-4.6); Glomerular Filtration Rate 72.9 mL/min (90-130); Glucose 107 mg/dL (65-115); NT Pro B Type Natriuretic Pept 658 pg/mL (0-125); Osmolality Calculated 295 mOsm/kg (285-295); Potassium 4.2 mmol/L (3.5-5.1); Sodium 141 mmol/L (136-145); Total Bilirubin 0.5 mg/dL (0.15-1.2); Total Protein 6.8 g/dL (6.6-8.7)
--- NOTE | 2023-09-01 01:05 | XRR_ITS ---
PROCEDURE INFORMATION: Exam: XR Chest Exam date and time: 09/01/2023 1:11 AM Age: 63 years old Clinical indication: Other: Low ext swelling; Patient HX: PT came in for lower extremity swelling, smoker, no HX of cancer; Additional info: Weakness TECHNIQUE: Imaging protocol: Radiologic exam of the chest. Views: 1 view. COMPARISON: CR XR chest 1V 06/20/2017 11:10 PM FINDINGS: Limitations: Evaluation limited by patient body habitus. Lungs: No consolidation, mass, or pulmonary edema. Pleural spaces: No pneumothorax or obvious pleural effusion. Heart/Mediastinum: Cardiomediastinal silhouette within normal limits, allowing for technique. Bones/joints: No acute osseous abnormality. XR/XR chest 1V portable [id number] IMPRESSION: 1. Evaluation limited by patient body habitus. 2. No acute findings.
[2023-09-01 01:27] LABS: Magnesium 2.2 mg/dL (1.7-2.3)
--- NOTE | 2023-09-01 02:27 | ECG_ITS ---
[facility] Test Date: 2023-09-01 Pat Name: Beverly Yao Department: Room: Gender: Female Denture Processor: : 1960 Requested By: Jovany Aviles Order Number: [id number] Jennifer MD: Nigel Tapia M.D. Measurements Intervals [place] Rate: 96 P: 68 ME: 144 QRS: 85 QRSD: 93 T: 45 QT: 375 QTc: 474 Interpretive Statements SINUS RHYTHM LOW QRS VOLTAGE IN PRECORDIAL LEADS [QRS DEFLECTION < 1.0 mV IN CHEST LEADS] Compared to ECG 02/04/2018 11:58:55 Low QRS voltage now present Electronically Signed On 09-01-2023 8:51:22 SENIOR TAX MANAGER by Nigel Tapia M.D. [id number]
--- NOTE | 2023-09-01 04:20 | PC.NURSE ---
spoke with JEREMY Jones. informed Karen that bariatric bed & inflatable mattress pad would be needed for patient.
--- NOTE | 2023-09-01 04:44 | PC.NURSE ---
pt placed in gown, placed honeycutt cath per Dr. Faustin. pt c/o headache. dr. faustin notified, tylenol 1g per Dr. Faustin.
[2023-09-01] MEDS: FUROsemide 10 mg/mL SDV 4mL 40 MG IVP (04:46)
[2023-09-01] MEDS: acetaminophen 500 mg Tablet 1000 MG PO (04:47)
--- NOTE | 2023-09-01 05:06 | PM.HP ---
Providers/Chief Complaint Primary Care Provider: Aki Marmolejo DO Chief Complaint: lower extremity edema History of Present Illness Beverly Yao is a 63 year old female who reports history of psoriasis, eczema, with chronic edema of lower extremities, left greater than right, chronic lower extremity ulcers, previously following up with wound care clinic and [place], transferring care to a different wound care clinic, tried going to and [place] which is closer to him, however, they do not take her insurance, states that she has an appointment coming up in about a week in [place] at [facility], however, over the last week had compression wraps on, legs have swollen up quite a bit more than usual, have been weeping. She states she has gained about 50 pounds. She takes 40 mg Lasix once a day. Does not change anything about her diet. Previously was getting up and around with a walker, recently, particularly in the last several days has not been able to get up at all. Review of Systems Const: Reports: change in weight; Denies: fever(s), chills, body aches or malaise Eyes: Denies: change in vision Card: Reports: edema; Denies: chest pain, pre-syncope or dyspnea on exertion Resp: Denies: dyspnea, productive cough, change in phlegm color or hemoptysis GI: Denies: abdominal pain, nausea, vomiting, diarrhea, constipation, hematochezia or melena : Denies: flank pain, urinary frequency or hematuria Musc: Denies: back pain, joint swelling or joint redness Skin/Breast: Reports: erythema and sores; Denies: new lesions Neuro: Denies: headache(s), numbness in extremities, weakness in extremities, dizziness, confusion or seizure-like activity Medications/Allergies Home Medications Medication Instructions Recorded Confirmed Last Taken Type aspirin 325 mg tablet 325 mg PO DAILY 11/29/19 07/21/23 07/20/23 History acetaminophen 500 mg tablet 1,000 mg PO Q6H PRN Pain 12/31/20 07/21/23 Unknown History lidocaine 5 % topical gel See Rx Instructions .Route 08/22/22 07/21/23 Unknown Rx .COMPLEX #113 grams zinc oxide 15 % topical cream See Rx Instructions topical TID 08/22/22 07/21/23 Unknown Rx skin irritation #99 grams cpap check and replace #1 ea 04/24/23 07/21/23 Unknown Rx semaglutide 0.25 mg or 0.5 mg (2 0.25 mg (0.368 mL) SUBCUT .weekly 04/24/23 07/21/23 Unknown Rx mg/3 mL) subcutaneous pen injector #3 mL (Ozempic) wheel chair, large #1 ea 04/24/23 07/21/23 Unknown Rx ammonium lactate 12 % topical cream See Rx Instructions .Route .COMPLEX 07/21/23 07/21/23 Unknown History ciclopirox 0.77 % topical cream See Rx Instructions .Route .COMPLEX 07/21/23 07/21/23 Unknown History clobetasol 0.05 % topical ointment See Rx Instructions .Route .COMPLEX 07/21/23 07/21/23 Unknown History fluocinolone 0.01 % scalp oil and See Rx Instructions .Route .COMPLEX 07/21/23 07/21/23 Unknown History shower cap ([place]-Smoothe/FS Scalp Oil) hydrocortisone 2.5 % topical See Rx Instructions .Route .[facility] 07/21/23 07/21/23 Unknown History ointment ketoconazole 2 % shampoo See Rx Instructions .Route .COMPLEX 07/21/23 07/21/23 Unknown History triamcinolone acetonide 0.1 % See Rx Instructions .Route .[facility] 07/21/23 07/21/23 07/18/23 History topical ointment furosemide 40 mg tablet 40 mg PO DAILY #30 tabs 08/14/23 Unknown Rx potassium chloride 20 mEq 20 meq PO DAILY #30 tabs 08/14/23 Unknown Rx tablet,extended release(part/cryst) Allergies Allergy/AdvReac Type Severity Reaction Status Date / Time ephedrine Allergy Unknown ADR/ALGY-Pa Verified 07/21/23 11:28 lpitations codeine AdvReac Mild ADR-Nausea Verified 07/21/23 11:28 PFSH Acute PFSH: Medical History DJD (degenerative joint disease), lumbar DVT (deep venous thrombosis) Dyslipidemia History of DVT of lower extremity HTN (hypertension) Lower extremity edema Narcolepsy Obesity BROWN (obstructive sleep apnea) Surgical History Post corneal transplant S/P section S/P IVC filter Status post tubal ligation Family History Father Bleeding disorder CAD (coronary artery disease) Diabetes Stroke Family/Other CAD (coronary artery disease) Cancer Diabetes Stroke Mother Cancer Other Hyperlipidemia Hypertension Denies family history of Clotting disorder Dementia Chronic kidney disease (CKD) Suicide Anesthesia complication Lung disease Social History Smoking and tobacco/nicotine status: light tobacco/nicotine user cigarettes [ Other cigarette details: she is working on quitting] Second hand smoke exposure: No Alcohol intake: never Substance/Drug Use: unknown Adopted: No Caregiver/support person: Yes ( assist) Lives independently: Yes Household members: spouse Marital status: service: No Current occupational status: disabled Pets and animals: Yes Pets & animals: dog(s) Do you think of yourself as: Straight/Heterosexual Current gender identity: Female Vitals/I&O/Wt Last Vital Signs Temp 98.9 F 09/01/23 00:05 Pulse 95 09/01/23 04:40 Resp 28 H 09/01/23 04:40 BP 163/91 09/01/23 04:40 Pulse Ox 97 09/01/23 04:40 O2 Del Method Room Air 09/01/23 00:31 O2 Flow Rate 2 09/01/23 00:05 Weight last 48 hrs Weight 199.581 kg Physical Exam Const: COMMON NORMALS: patient oriented x3 and alert GENERAL APPEARANCE: cooperative NUTRITIONAL APPEARANCE: obese morbidly obese ORIENTATION/CONSCIOUSNESS: Yes awake HENMT: COMMON NORMALS: oropharynx normal Neck/C-Spine: COMMON NORMALS: no JVD Resp: COMMON NORMALS: normal respiratory effort and clear to auscultation bilaterally AUSCULTATION: clear to auscultation bilaterally Cardio: COMMON NORMALS: no JVD, regular rhythm, S1 normal heart sound present, S2 normal heart sound present and No murmurs present (Cardio) RHYTHM: regular rhythm HEART SOUNDS: S1 normal heart sound present and S2 normal heart sound present GI: COMMON NORMALS: Normal to inspection, nondistended, normoactive bowel sounds present, Soft to palpation and non-tender PALPATION: Yes Soft to palpation Extremity: COMMON NORMALS: no joint enlargement GENERAL: Yes edema (Severe edema BL LE, L>R) Neuro: COMMON NORMALS: patient oriented x3 and moves all extremities SENSORIUM/ORIENTATION: Yes alert Skin: OTHER: Severe edema BL LE with few areas of weeping of bilateral lower extremity, stasis dermatitis on the left, multiple ulcerations, otherwise dry, scaly cracking skin of legs including thighs. Urinary Catheter Management: Newman: Cath Placed During This Visit: yes Urinary Catheter Date of Insertion: 09/01/23 Urinary Catheter Time of Insertion: 04:43 Data 09/01/23 00:22 09/01/23 00:22 A&P Assessment and plan (1) Anasarca: Severe bilateral lower extreme edema, also on the left, assess and duplex ultrasound. States has not had compression wraps over at least a week. Looks like her last appointment with wound care was on August 11 at which point it seems she was awaiting an appointment later that week at [facility] wound care clinic. She states that she tried to follow-up in [place] closer to her home but they did not take her insurance. She is awaiting appointment now to [facility] but it will be another week before she can get in there. At the same time she has not lost the ability to ambulate which she was previously able to do with a walker now with worsening bilateral leg edema and weight gain, she states upwards of 50 pounds. Received Lasix in ER, continue Lasix 60 mg IV twice daily at this time. We will request PT compression therapy. Appears to have bilateral stasis dermatitis worse on the left, assess duplex ultrasound. Reviewed vitals, CBC, CMP, NT proBNP, chest x-ray. EKG reviewed, no interpretation without changes suggestive of ischemia. Reviewed ER documentation, discussed with ER provider. At current time afebrile, no leukocytosis, addition of infectious cellulitis, but continue to reassess. Follow-up CBC requested. At risk of electrolyte abnormality with IV diuresis, follow-up BMP requested. Monitor on telemetry. (2) Weight gain: Reporting weight gain about 50 pounds recently. Anasarca. (3) Inability to walk: Lost ability to walk with weight gain in the last several days. Additional treatment for anasarca as above. PT assessment. Case management consultation. Plan Reports gluteal wounds: Wound care. BROWN: Nightly CPAP requested History of DVT: Assess ultrasound bilateral lower extremities HTN: Monitor blood pressure. Diuretic as above. HLD Morbid obesity Requesting home medications to be confirmed. Attestations Medical Necessity Statement*: Place in observation for additional assessment management due to loss of ability to ambulate due to severe anasarca. and High MDM includes amount and/or complexity of data reviewed/ordered [ previous or external records, resulted lab(s)/test(s), ordered lab(s)/test(s), independent test interpretation and other healthcare professional discussion] and described risk of complication, morbidity or mortality of management as documented Diagnoses Anasarca R60.1 Weight gain R63.5 Inability to walk R26.2
--- NOTE | 2023-09-01 06:57 | USCV_ITS ---
Beverly Yao Age: 63 Gender: F : 1960 Exam Date: 09/01/2023 12:25 Ordering Phys: Mitchel Apodaac MD Technologist: Chan Zhang [place] [facility] [place]: bilat swelling PROCEDURES: The venous duplex Doppler examination of both lower extremities was performed in the standard fashion. FINDINGS: Examination was technically limited due to body habitus. Nonvisualization of the veins. CONCLUSIONS Technically very limited exam. DVT cannot be excluded. Dr. Sandra Dumont DO (Electronically Signed) Final Date: 01 September 2023 14:24 S
[2023-09-01] MEDS: enoxaparin 40 mg/0.4 mL Syringe SUBCUT (08:45)
--- NOTE | 2023-09-01 13:15 | PC.OT ---
OT NOTE: OT EVALUATION ORDERS FOR B LE LYMPHEDEMA WRAPS RECEIVED. PER DAMION ESQUEDA; HOLD UNTIL TOMORROW SHE NEEDS TO ASSESS PATIENT WOUNDS TODAY.
[2023-09-01 17:23] LABS: Glucose Point of Care 85 mg/dL (70-110)
[2023-09-01] MEDS: FUROsemide 10 mg/mL SDV 10mL 60 MG IVP (18:14)
--- NOTE | 2023-09-01 19:34 | PM.CONSULT ---
Providers/Reason For Consult Consulting Physician/Specialty*: Nataliia Milian, QUALITY CONTROL MICROBIOLOGY SUPERVISOR- Reason for Consult*: Wound Care Requesting Physician: Prateek Burkett MD Attending Physician: Prateek Burkett MD Primary Care Provider: Aki Marmolejo DO History of Present Illness History of Present Illness Beverly Yao is a 63 year old female who presents today with wounds to the left lower extremity. Medical history includes morbid obesity, HTN, PVD and DVT. Ms. Yao was admitted on today for chronic left lower leg wounds. She is being seen today for wound care consult on the Medical/Surgical floor. Ms. Yao previously has been seen at wound care over the course of several years with multiple chronic wounds to her bilateral lower extremities. Her care was recently transferred to [facility] in [place], [place]. She currently has an appointment for September 08, 2023 at [facility] in [place], [place] for wound care. She reports visiting a [facility] and planned to be seen at a wound care center in [place], [place] but they would not take her insurance. She reports she had compression wraps on her legs and has become unable to walk over the past couple of days. Ms. Yao reports recent weight gain of over fifty pounds. Skin assessment today revealed open wounds to the left posterior lower leg measuring 3x2x0.2cm and a wound to the left posterior upper thigh measuring 9x2x0.1cm. Both wounds are limited to breakdown of skin. I do not appreciate any erythema or induration to the periwounds. There is scant amount of serous drainage from the wounds. No curette debridement performed. I recommend daily dressing changes after cleansing the wounds with saline, using Hydrofera Blue as the primary product to both wounds and covering with a covaderm. Ms. Yao has dry, scaly skin to bilateral lower extremities. I recommend daily lymphedema wraps be placed by Occupational Therapy (Thu-). Ms. Yao also has excoriation with erythema to skin folds including panus, abdomen, bilateral upper and lower extremities. I recommend Nystatin Powder twice daily to these areas along with Interdry. There are dry, scaly patches of skin to the mid back and to the buttocks and left posterior upper extremity. I recommend those areas be protected daily with barrier ointment. Ms. Yao is encouraged to use the sponge bath method and to not get her lymphedema wraps wet. I have encouraged her to elevate her legs as much as possible. I have also encouraged her to offload her left lower extremity, turning frequently every two hours. She is currently in a bariatric bed that is appropriate and will help with offloading measures with pressure redistribution. I do not recommend any wound cultures or imaging at this time. I appreciate the opportunity to consult with Ms. Yao. Review of Systems Const: Reports: change in weight; Denies: fever(s), chills, body aches or malaise Eyes: Denies: change in vision Card: Reports: edema; Denies: chest pain, pre-syncope or dyspnea on exertion Resp: Denies: dyspnea, productive cough, change in phlegm color or hemoptysis GI: Denies: abdominal pain, nausea, vomiting, diarrhea, constipation, hematochezia or melena : Denies: flank pain, urinary frequency or hematuria Musc: Denies: back pain, joint swelling or joint redness Skin/Breast: Reports: erythema, sores and new lesions Neuro: Denies: headache(s), numbness in extremities, weakness in extremities, dizziness, confusion or seizure-like activity Medications/Allergies Home Medications Medication Instructions Recorded Confirmed Last Taken Type aspirin 325 mg tablet 325 mg PO DAILY 11/29/19 09/01/23 07/20/23 History acetaminophen 500 mg tablet 1,000 mg PO Q6H PRN Pain 12/31/20 09/01/23 Unknown History cpap check and replace #1 ea 04/24/23 09/01/23 Unknown Rx wheel chair, large #1 ea 04/24/23 09/01/23 Unknown Rx ammonium lactate 12 % topical cream See Rx Instructions .Route .COMPLEX 07/21/23 09/01/23 Unknown History fluocinolone 0.01 % scalp oil and See Rx Instructions .Route .COMPLEX 07/21/23 09/01/23 Unknown History shower cap ([place]-Smoothe/FS Scalp Oil) ketoconazole 2 % shampoo See Rx Instructions .Route .COMPLEX 07/21/23 09/01/23 Unknown History triamcinolone acetonide 0.1 % See Rx Instructions .Route .COMPLEX 07/21/23 09/01/23 07/18/23 History topical ointment furosemide 40 mg tablet 40 mg PO DAILY #30 tabs 08/14/23 09/01/23 Unknown Rx potassium chloride 20 mEq 20 meq PO DAILY #30 tabs 08/14/23 09/01/23 Unknown Rx tablet,extended release(part/cryst) Allergies Allergy/AdvReac Type Severity Reaction Status Date / Time ephedrine Allergy Unknown ADR/ALGY-Pa Verified 09/01/23 08:07 lpitations codeine AdvReac Mild ADR-Nausea Verified 09/01/23 08:07 Current Medications Generic Name Dose Route Start Last Admin Trade Name Amalia PRN Reason Stop Dose Admin Enoxaparin Sodium 40 mg 09/01/23 06:57 09/01/23 08:45 Enoxaparin 40 Mg/0.4 Ml Syringe SUBCUT 40 mg Q24H YANI Administration Furosemide 60 mg 09/01/23 16:00 09/01/23 18:14 Furosemide 10 Mg/Ml Sdv 10ml IVP 60 mg Q12H YANI Administration PFSH Acute PFSH: Medical History DJD (degenerative joint disease), lumbar DVT (deep venous thrombosis) Dyslipidemia History of DVT of lower extremity HTN (hypertension) Lower extremity edema Narcolepsy Obesity BROWN (obstructive sleep apnea) Surgical History Post corneal transplant S/P section S/P IVC filter Status post tubal ligation Family History Father Bleeding disorder CAD (coronary artery disease) Diabetes Stroke Family/Other CAD (coronary artery disease) Cancer Diabetes Stroke Mother Cancer Other Hyperlipidemia Hypertension Denies family history of Clotting disorder Dementia Chronic kidney disease (CKD) Suicide Anesthesia complication Lung disease Social History Smoking and tobacco/nicotine status: light tobacco/nicotine user cigarettes [ Other cigarette details: she is working on quitting] Second hand smoke exposure: No Alcohol intake: never Substance/Drug Use: unknown Adopted: No Caregiver/support person: Yes ( assist) Lives independently: Yes Household members: spouse Marital status: service: No Current occupational status: disabled Pets and animals: Yes Pets & animals: dog(s) Do you think of yourself as: Straight/Heterosexual Current gender identity: Female Vitals/I&O/Wt Last Vital Signs Temp 98.3 F 09/01/23 16:00 Pulse 98 09/01/23 16:00 Resp 18 09/01/23 16:00 BP 102/65 09/01/23 16:00 Pulse Ox 88 L 09/01/23 16:00 O2 Del Method Room Air 09/01/23 16:00 O2 Flow Rate 2 09/01/23 00:05 09/01/23 09/01/23 09/01/23 06:59 14:59 22:59 Intake Total 240 / 240 600 / 840 Output Total 2400 / 2400 650 / 3050 Balance -2160 / -2160 -50 / -2210 Weight last 48 hrs Weight 199.581 kg Physical Exam Const: COMMON NORMALS: patient oriented x3 and alert GENERAL APPEARANCE: cooperative NUTRITIONAL APPEARANCE: obese morbidly obese ORIENTATION/CONSCIOUSNESS: Yes awake HENMT: COMMON NORMALS: oropharynx normal Neck/C-Spine: COMMON NORMALS: no JVD Resp: COMMON NORMALS: normal respiratory effort and clear to auscultation bilaterally AUSCULTATION: clear to auscultation bilaterally Cardio: COMMON NORMALS: no JVD, regular rhythm, S1 normal heart sound present, S2 normal heart sound present and No murmurs present (Cardio) RHYTHM: regular rhythm HEART SOUNDS: S1 normal heart sound present and S2 normal heart sound present GI: COMMON NORMALS: Normal to inspection, nondistended, normoactive bowel sounds present, Soft to palpation and non-tender PALPATION: Yes Soft to palpation Extremity: COMMON NORMALS: no joint enlargement GENERAL: Yes edema (Severe edema BL LE, L>R) Neuro: COMMON NORMALS: patient oriented x3 and moves all extremities SENSORIUM/ORIENTATION: Yes alert Skin: WOUNDS: Yes wounds noted (Left posterior lower leg and left posterior thigh) size (left posterior lower leg 3x2x0.2cm, left posterior thigh 9x2x0.1cm ), bed pink, drainage serous, margins well defined, without odor and open OTHER: Severe edema BL LE with few areas of weeping of bilateral lower extremity, stasis dermatitis on the left, multiple ulcerations, otherwise dry, scaly cracking skin of legs including thighs. Urinary Catheter Management: Newman: Cath Placed During This Visit: yes Reason for Continuing Indwelling Catheter: Not indwelling catheter Urinary Catheter Date of Insertion: 09/01/23 Urinary Catheter Time of Insertion: 04:43 Data 09/01/23 00:22 09/01/23 00:22 A&P Assessment and plan (1) Leg wound, left: Daily dressing changes, cleanse with saline Hydrofera blue and covaderm. Lymphedema wraps to bilateral lower extremities daily (Thu-)by Occupational Therapy. Qualifiers: Encounter type: initial encounter Qualified Code(s): S81.802A - Unspecified open wound, left lower leg, initial encounter (2) Skin excoriation: Excoriation and erythema to skin folds including panus, bilateral breast, abdomen, bilateral upper and lower extremities. Interdry and nystatin powder BID. Barrier ointment to be placed once daily to dry scaly patches of skin. Consult Attestations Medical Necessity Statement: I was consulted for Wound assessment, wound care and daily dressing changes. Time Spent in Patient Care: 16 - 35 minutes (>than 50% of time spent in counselling and/or direct pt care on unit). Coding Level of Care Code 46833 Diagnoses Leg wound, left S81.802A Encounter type: initial encounter Skin excoriation T14.8XXA Time Spent (min) 35 Wound Orders Wound Number 1: Left posterior lower leg wound, limited to breakdown of skin Does Wound require Debridement?: No Duration: 14 Days Dressing change frequency: Daily Wound Cleansing: Saline Skin Barriers/Tricia-Wound Care: Vitamin A&D Ointment Primary Wound Care Dressing: Hydrofera Blue Secondary Wound Care Dressing: Covaderm Bathing/Showering/Hygiene: May shower without wound dressing Off-Loading: Low air-loss mattress (bariatric) and Turn and reposition every 2 hours Edema Control: Elevate legs to heart level for 30 mins daily and/or when sitting, Avoid standing for long periods of time and Other Edema Control Order/Instructions: (lymphedema wraps to be placed to bilateral lower extremities by Occupational therapy daily (Thu-)) Wound Number 2: Left posterior upper thigh Does Wound require Debridement?: No Duration: 14 Days Dressing change frequency: Daily and Other (prn if soiled or saturated.) Wound Cleansing: Saline Primary Wound Care Dressing: Hydrofera blue Secondary Wound Care Dressing: Covaderm Bathing/Showering/Hygiene: May shower without wound dressing Off-Loading: Low air-loss mattress (bariatric) and Turn and reposition every 2 hours Non Wound Condition: Excoriated skin with erythema to skin folds including panus, bilateral breast, abdomen, bilateral upper and lower extremities Does Wound require Debridement?: No Duration: 14 Days Dressing change frequency: Twice Daily Wound Cleansing: Soap and Water Skin Barriers/Tricia-Wound Care: Vitamin A&D Ointment (apply to dry skin patches to mid back and to bilateral glutes. ) Primary Wound Care Dressing: Interdry with Nystatin Powder (100,000 units per g) Bathing/Showering/Hygiene: May shower without wound dressing Off-Loading: Low air-loss mattress (bariatric) and Turn and reposition every 2 hours
[2023-09-01] MEDS: nystatin powder 15 gm Btl 1 APPLIC TOPICAL (22:11)
--- NOTE | 2023-09-01 22:28 | PC.NURSE ---
Wound care was performed on the pt as ordered. A full skin assessment was performed and excoriation was noted on BLE with the left being greater than the right. Weeping edema was also present on both legs. Bandages that were applied today were maintained and were clean dry and intact. The pt tolerated the wound care well and was cooperative/understanding of the care provided. All questions were answered to the pts satisfaction.
[2023-09-02] VITALS (9 sets, daily range): BP systolic 106–122; BP diastolic 64–75; PULSE 71–97; RESP 15–20; TEMP 36.5–37.1; O2SAT 92–97
[2023-09-02] MEDS: FUROsemide 10 mg/mL SDV 10mL 60 MG IVP ×2 (04:41→18:07)
[2023-09-02 05:41] LABS: Basophils % 0.4 %; Eosinophils # 0.1 10^3/uL (0.0-0.8); Eosinophils % 2.6 %; Hematocrit 41.3 % (36-47); Lymphocytes # 0.8 10^3/uL (0.8-4.8); Lymphocytes % 15.4 %; Mean Corpuscular Hemoglobin 28.7 pg (27-33); Mean Corpuscular Volume 95.6 fl (85-98); Monocytes # 0.5 10^3/uL (0.2-0.9); Neutrophils # 3.57 10^3/uL (1.8-7.7); Neutrophils % 71.4 %; Nucleated Red Blood Cells % 0 %; Platelet Count 197 10^3/cmm (157-399); Red Blood Count 4.32 10^6/uL (3.85-5.65); Red Cell Distribution Width 17.4 % (12.1-15.1)
[2023-09-02 06:06] LABS: Blood Urea Nitrogen 17 mg/dL (8-23); Calcium 8.4 mg/dL (8.5-10.5); Carbon Dioxide 32 mmol/L (22-29); Chloride 104 mmol/L (98-107); Glomerular Filtration Rate 226.2 mL/min (90-130); Glucose 88 mg/dL (65-115); Osmolality Calculated 293 mOsm/kg (285-295); Sodium 141 mmol/L (136-145)
[2023-09-02] MEDS: enoxaparin 40 mg/0.4 mL Syringe SUBCUT (06:48)
[2023-09-02] MEDS: nystatin powder 15 gm Btl 1 APPLIC TOPICAL ×2 (10:28→18:03)
--- NOTE | 2023-09-02 10:42 | PC.CHAP ---
Pastoral Care Encounter/Spiritual Assessment Type of Contact [] Declined meter record clerk visit [] Patient/Family/Request visit [] Outpatient visit [] Follow-up visit [] Physician referral [] Code/Alert [x] Routine visit [] Staff referral [] Actively dying [] Patient sleeping [] Family support [] [] Out of room [] Palliative care [] [] Receiving care in room [] Pre-surgical visit [] Trauma [] Long length of stay [] ICU visit [] Other: Relational/Emotional Strength [x] Patient feels connected with others/family/visitors/staff [] Distress [] Loneliness/isolation [] Abandonment Spirituality of Patient [] Person of Juju [] Attends Jew of their Juju [] Believes in Prayer [] Reads Bible or Scientology materials [] There are Spiritual issues to be addressed Mortgage Accounting Clerk Interventions [x] Prayer [x] Active listening [] Non-anxious presence [] Spiritual/emotional support [] Crisis/trauma care [] Spiritual counseling [] Bereavement support [] Provided bereavement packet [] Provided Bible/devotional materials [] Provided toy/stuffed animal, coloring book to patient or family member [] Provided Communion [] Anointing/[place] [] Salvation [] Completed spiritual assessment [] Other: Impact on Illness or Injury [] Angry [] Fearful [] Anxious [] Often cries [] Exhaustion [] Unable to work [] Unable to attend rastafari [] Unable to walk/stand [] Unable to read [] Unable to drive [] Unable to eat/drink [] Unable to sleep [] Unable to be with family [] Patient intubated [] Other: Summary Time spent with patient 15 min
--- NOTE | 2023-09-02 10:47 | PC.CHAP ---
Pastoral Care Encounter/Spiritual Assessment Type of Contact [] Declined town justice visit [] Patient/Family/Request visit [] Outpatient visit [] Follow-up visit [] Physician referral [] Code/Alert [x] Routine visit [] Staff referral [] Actively dying [] Patient sleeping [] Family support [] [] Out of room [] Palliative care [] [] Receiving care in room [] Pre-surgical visit [] Trauma [] Long length of stay [] ICU visit [] Other: Relational/Emotional Strength [x] Patient feels connected with others/family/visitors/staff [] Distress [] Loneliness/isolation [] Abandonment Spirituality of Patient [] Person of Juju [] Attends Yarsanism of their Juju [x] Believes in Prayer [] Reads Bible or Rastafarian materials [] There are Spiritual issues to be addressed Software Engineer Sales Interventions [x] Prayer [] Active listening [] Non-anxious presence [] Spiritual/emotional support [] Crisis/trauma care [] Spiritual counseling [] Bereavement support [] Provided bereavement packet [] Provided Bible/devotional materials [] Provided toy/stuffed animal, coloring book to patient or family member [] Provided Communion [] Anointing/[place] [] Salvation [] Completed spiritual assessment [] Other: Impact on Illness or Injury [] Angry [] Fearful [] Anxious [] Often cries [] Exhaustion [] Unable to work [] Unable to attend sabianism [] Unable to walk/stand [] Unable to read [] Unable to drive [] Unable to eat/drink [] Unable to sleep [] Unable to be with family [] Patient intubated [] Other: Summary Time spent with patient 15 min
--- NOTE | 2023-09-02 12:17 | PM.PN ---
Subjective Subjective: Patient reports ongoing severe lower extremity swelling. She endorses around 50 pound weight gain. She states she is too weak to stand. Denies fevers, chills, nausea or emesis. Medications: Reviewed: Yes Vitals/I&O/Wt Last Vital Signs Temp 98.7 F 09/02/23 08:00 Pulse 93 09/02/23 08:00 Resp 18 09/02/23 08:00 BP 122/75 09/02/23 08:00 Pulse Ox 92 09/02/23 08:00 O2 Del Method Nasal Cannula 09/02/23 08:00 O2 Flow Rate 2 09/01/23 00:05 FiO2 21 09/01/23 21:10 09/01/23 09/02/23 09/02/23 22:59 06:59 14:59 Intake Total 600 / 840 600 / 600 Output Total 3550 / 5950 500 / 6450 2450 / 2450 Balance -2950 / -5110 -500 / -5610 -1850 / -1850 Weight last 48 hrs Weight 1996.77 kg Weight 199.581 kg Physical Exam Narrative: General: Patient is awake. Head: Normocephalic. Atraumatic. EOM intact. Neck: No JVD. Cardiovascular: RRR. No gallops. No murmurs. Lungs: Clear to auscultation, no use of accessory muscles, no crackles or wheezes. Skin: No jaundice. No rashes. Abdomen: Normal bowel sounds, abdomen soft and nontender. Extremities: Numerous wounds. A complete skin exam was not performed on today's exam. Musculoskeletal: Severe lymphedema of lower extremities. Neurological: Moves all 4 extremities. No myoclonus. Urinary Catheter Management: Newman: Cath Placed During This Visit: yes Reason for Continuing Indwelling Catheter: Other Urinary Catheter Date of Insertion: 09/01/23 Urinary Catheter Time of Insertion: 04:43 Data 09/02/23 04:50 09/02/23 04:50 A&P Assessment and plan (1) Skin excoriation: Numerous skin wounds Wound care consulted, appreciate recommendations (2) Anasarca: Continue IV diuresis Monitor renal function and electrolytes (3) Morbid obesity: Would benefit from weight loss (4) Debility: Continue therapy (5) Weight gain: IV diuresis as above (6) Inability to walk: Reducing weight with diuresis and volume improvement Continue therapy Plan DVT ppx: Heparin Code: Full Attestations Medical Necessity Statement*: Patient requires ongoing hospitalization for wound care, IV diuresis, therapy evaluation, and supportive care. Coding Level of Care Code Acute Code for Chg Fwd Diagnoses Skin excoriation T14.8XXA Anasarca R60.1 Morbid obesity E66.01 Debility R53.81 Weight gain R63.5 Inability to walk R26.2
--- NOTE | 2023-09-02 13:46 | P.PN_ITS ---
Subjective Subjective: Ms. Yao reports no events overnight. She received her lymphedema wraps today to her bilateral lower extremities by Occupational Therapy. All skin folds were cleansed, with nystatin powder applied. Interdry was also applied to all skin folds. Daily dressing performed to left posterior upper leg. Ms. Yao's skin folds remain excoriated with not much visible improvement. The left posterior le g wound is clean and stable. I have encouraged Ms. Yao to offload as much as possible. Medications: Reviewed: Yes Vitals/I&O/Wt Last Vital Signs Temp 98.7 F 09/02/23 08:00 Pulse 93 09/02/23 08:00 Resp 18 09/02/23 08:00 BP 122/75 09/02/23 08:00 Pulse Ox 92 09/02/23 08:00 O2 Del Method Nasal Cannula 09/02/23 08:00 O2 Flow Rate 2 09/01/23 00:05 FiO2 21 09/01/23 21:10 09/01/23 09/02/23 09/02/23 22:59 06:59 14:59 Intake Total 600 / 840 600 / 600 Output Total 3550 / 5950 500 / 6450 2450 / 2450 Balance -2950 / -5110 -500 / -5610 -1850 / -1850 Weight last 48 hrs Weight 199.637 kg Weight 1996.77 kg Weight 199.581 kg Physical Exam Const: COMMON NORMALS: patient oriented x3 and alert GENERAL APPEARANCE: cooperative NUTRITIONAL APPEARANCE: obese morbidly obese ORIE NTATION/CONSCIOUSNESS: Yes awake HENMT: COMMON NORMALS: oropharynx normal Neck/C-Spine: COMMON NORMALS: no JVD Resp: COMMON NORMALS: normal respiratory effort and clear to auscultation bilaterally AUSCULTATION: clear to auscultation bilaterally Cardio: COMMON NORMALS: no JVD, regular rhythm, S1 normal heart sound present, S2 normal heart sound present and No murmurs present (Cardio) RHYTHM: regular rhythm HEART SOUNDS: S1 normal heart sound present and S2 normal heart sound present GI: COMMON NORMALS: Normal to inspection, nondistended, normoactive bowel sounds present, Soft to palpation and non-tender PALPATION: Yes Soft to palpation Extremity: COMMON NORMALS: no joint enlargement GENERAL: Yes edema (Severe edema BL LE, L>R) Neuro: COMMON NORMALS: patient oriented x3 and moves all extremities SENSORIUM/ORIENTATION: Yes alert Skin: WOUNDS: Yes wounds noted (Left posterior lower leg and left posterior thigh) size (left posterior lower leg 3x2x0.2cm, left posterior thigh 9x2x0.1cm ), bed pink, drainage serous, margins well defined, without odor and open OTHER: Severe edema BL LE with few areas of weeping of bilateral lower extremity, sta sis dermatitis on the left, multiple ulcerations, otherwise dry, scaly cracking skin of legs including thighs, mid back and buttocks. Urinary Catheter Management: Newman: Cath Placed During This Visit: yes Reason for Continuing Indwelling Catheter: Other Urinary Catheter Date of Insertion: 09/01/23 Urinary Catheter Time of Insertion: 04:43 Data 09/02/23 04:50 09/02/23 04:50 A&P Assessment and plan (1) Leg wound, left: Daily dressing changes, cleanse with saline Hydrofera blue and covaderm. Lymphedema wraps to bilateral lower extremities daily (Mon-Thurs)by Occupational Therapy. Qualifiers: Encounter type: initial encounter Qualified Code(s): S81.802A - Unspecified open wound, left lower leg, initial encounter (2) Skin excoriation: Excoriation and erythema to skin folds including panus, bilateral breast, abdomen, bilateral upper and lower extremities. Interdry and nystatin powder BID. Barrier ointment to be placed once daily to dry scaly patches of skin. Attestations Medical Necessity Statement*: Patient requires ongoing hospitalization for wound care, IV diuresis, therapy evaluation, and supportive care. Time Spent in Patient Care: 16 - 35 minutes (>than 50% of time spent in counselling and/or direct pt care on unit) . Coding Level of Care Code 82793 Diagnoses Leg wound, left S81.802A Encounter type: initial encounter Skin excoriation T14.8XXA Time Spent (min) 35 Wound Orders Wound Number 1: Left posterior lower leg wound, limited to breakdown of skin Does Wound require Debridement?: No Duration: 14 Days Dressing change frequency: Daily Wound Cleansing: Saline Skin Barriers/Tricia-Wound Care: Vitamin A&D Ointment Primary Wound Care Dressing: Hydrofera Blue Secondary Wound Care Dressing: Covaderm Bathing/Showering/Hygiene: May shower without wound dressing Off-Loading: Low air-loss mattress (bariatric) and Turn and reposition every 2 hours Edema Control: Elevate legs to heart level for 30 mins daily and/or when sitting, Avoid standing for long periods of time and Other Edema Control Order/Instructions: (lymphedema wraps to be placed to bilateral lower extremities by Occupational therapy daily (Thu-)) Wound Number 2: Left posterior upper thigh Does Wound require Debridement?: No Duration: 14 Days Dressing change frequency: Daily and Other (prn if soiled or saturated.) Wound Cleansing: Saline Primary Wound Care Dressing: Hydrofera blue Secondary Wound Care Dressing: Covaderm Bathing/Showering/Hygiene: May shower without wound dressing Off-Loading: Low air-loss mattress (bariatric) and Turn and reposition every 2 hours Non Wound Condition: Excoriated skin with erythema to skin folds including panus, bilateral breast, abdomen, bilateral upper and lower extremities Does Wound require Debridement?: No Duration: 14 Days Dressing change frequency: Twice Daily Wound Cleansing: Soap and Water Skin Barriers/Tricia-Wound Care: Vitamin A&D Ointment (apply to dry skin patches to mid back and to bilateral glutes. ) Primary Wound Care Dressing: Interdry with Nystatin Powder (100,000 units per g) Bathing/Showering/Hygiene: May shower without wound dressing Off-Loading: Low air-loss mattress (bariatric) and Turn and reposition every 2 hours
[2023-09-02] MEDS: acetaminophen 325 mg Tablet 650 MG PO (18:03)
[2023-09-03] VITALS (7 sets, daily range): BP systolic 109–150; BP diastolic 62–79; PULSE 71–90; RESP 17–18; TEMP 36.2–36.6; O2SAT 95–98
[2023-09-03] MEDS: FUROsemide 10 mg/mL SDV 10mL 60 MG IVP ×2 (04:18→18:43)
[2023-09-03 06:11] LABS: Basophils % 0.5 %; Eosinophils # 0.2 10^3/uL (0.0-0.8); Eosinophils % 3.6 %; Hematocrit 44.2 % (36-47); Lymphocytes # 0.7 10^3/uL (0.8-4.8); Lymphocytes % 15.6 %; Mean Corpuscular HGB Conc 29.9 g/dL (30-55); Mean Corpuscular Hemoglobin 28.4 pg (27-33); Mean Corpuscular Volume 95.1 fl (85-98); Mean Platelet Volume 9.8 fL (7.4-10.4); Monocytes # 0.4 10^3/uL (0.2-0.9); Monocytes % 10.6 %; Neutrophils # 2.89 10^3/uL (1.8-7.7); Neutrophils % 69.5 %; Nucleated Red Blood Cells % 0 %; Platelet Count 197 10^3/cmm (157-399); Red Blood Count 4.65 10^6/uL (3.85-5.65); Red Cell Distribution Width 17.4 % (12.1-15.1); White Blood Count 4.16 10^3/uL (3.29-11.43)
[2023-09-03 06:33] LABS: Albumin Level 3.1 g/dL (3.5-5.2); Anion Gap 11.6 (5-19); Blood Urea Nitrogen 14 mg/dL (8-23); Calcium 8.8 mg/dL (8.5-10.5); Carbon Dioxide 34 mmol/L (22-29); Chloride 98 mmol/L (98-107); Glomerular Filtration Rate 226.2 mL/min (90-130); Glucose 86 mg/dL (65-115); Magnesium 2.2 mg/dL (1.7-2.3); Phosphorus 3.1 mg/dL (2.5-4.5); Potassium 3.6 mmol/L (3.5-5.1); Sodium 140 mmol/L (136-145)
[2023-09-03 06:36] LABS: Anion Gap 12.8 (5-19); Blood Urea Nitrogen 15 mg/dL (8-23); Calcium 8.7 mg/dL (8.5-10.5); Carbon Dioxide 33 mmol/L (22-29); Chloride 98 mmol/L (98-107); Glomerular Filtration Rate 162.3 mL/min (90-130); Glucose 86 mg/dL (65-115); Osmolality Calculated 290 mOsm/kg (285-295); Potassium 3.8 mmol/L (3.5-5.1); Sodium 140 mmol/L (136-145)
[2023-09-03] MEDS: enoxaparin 40 mg/0.4 mL Syringe SUBCUT (06:41)
--- NOTE | 2023-09-03 07:42 | P.PN_ITS ---
Subjective Subjective: Ms. Yao reports no events overnight. She reports she wore her CPAP and did sleep some. She reports she worked with Physical Therapy some yesterday. She received her lymphedema wraps yesterday to her bilateral lower extremities by Occupational Therapy. She will have them changed today. I spoke with her nurse to ensure the dressing to the left posterior leg is changed prior to the lymphedema wrap change. I have encouraged Ms. Yao to offload as much as possible. Medications: Reviewed: Yes Vitals/I&O/Wt Last Vital Signs Temp 98 F 09/03/23 04:00 Pulse 71 09/03/23 06:00 Resp 17 09/03/23 04:00 BP 109/73 09/03/23 04:00 Pulse Ox 98 09/03/23 04:00 O2 Del Method BiPAP 09/03/23 04:00 O2 Flow Rate 2 09/02/23 20:00 FiO2 21 09/01/23 21:10 09/02/23 09/03/23 09/03/23 22:59 06:59 14:59 Intake Total 480 / 1560 Output Total 3075 / 6525 350 / 6875 Balance -2595 / -4965 -350 / -5315 Weight last 48 hrs Weight 199.637 kg Weight 1996.77 kg Physical Exam Const: COMMON NORMALS: patient oriented x3 and alert GENERAL APPEARANCE: cooperative NUTRITIONAL APPEARANCE: obese morbidly obese ORIENTATIO N/CONSCIOUSNESS: Yes awake HENMT: COMMON NORMALS: oropharynx normal Neck/C-Spine: COMMON NORMALS: no JVD Resp: COMMON NORMALS: normal respiratory effort and clear to auscultation bilaterally AUSCULTATION: clear to auscultation bilaterally Cardio: COMMON NORMALS: no JVD, regular rhythm, S1 normal heart sound present, S2 normal heart sound present and No murmurs present (Cardio) RHYTHM: regular rhythm HEART SOUNDS: S1 normal heart sound present and S2 normal heart sound present GI: COMMON NORMALS: Normal to inspection, nondistended, normoactive bowel sounds present, Soft to palpation and non-tender PALPATION: Yes Soft to palpation Extremity: COMMON NORMALS: no joint enlargement GENERAL: Yes edema (Severe edema BL LE, L>R) Neuro: COMMON NORMALS: patient oriented x3 and moves all extremities SENSORIUM/ORIENTATION: Yes alert Skin: WOUNDS: Yes wounds noted (Left posterior lower leg and left posterior thigh) size (left posterior lower leg 3x2x0.2cm, left posterior thigh 9x2x0.1cm ), bed pink, drainage serous, margins well defined, without odor and open OTHER: Severe edema BL LE with few areas of weeping of bilateral lower extremity, stasis dermatitis on the left, multiple ulcerations, otherwise dry, scaly cracking skin of legs including thighs, mid back and buttocks. Urinary Catheter Management: Newman: Cath Placed During This Visit: yes Reason for Continuing Indwelling Catheter: Assist Healing of Perineal & Sacral Wounds- Incontinent Patients Urinary Catheter Date of Insertion: 09/01/23 Urinary Catheter Time of Insertion: 04:43 Data 09/03/23 05:02 09/03/23 05:02 A&P Assessment and plan (1) Leg wound, left: Daily dressing changes, cleanse with saline Hydrofera blue and covaderm. Lymphedema wraps to bilateral lower extremities daily (Mon-Thurs)by Occupational Therapy. Qualifiers: Encounter type: initial encounter Qualified Code(s): S81.802A - Unspecified open wound, left lower leg, initial encounter (2) Skin excoriation: Excoriation and erythema to skin folds including panus, bilateral breast, a bdomen, bilateral upper and lower extremities. Interdry and nystatin powder BID. Barrier ointment to be placed once daily to dry scaly patches of skin. Attestations Medical Necessity Statement*: Patient requires ongoing hospitalization for wound care, IV diuresis, therapy evaluation, and supportive care. Time Spent in Patient Care: 16 - 35 minutes (>than 50% of time spent in counselling and/or direct pt care on unit) . Coding Level of Care Code 76653 Diagnoses Leg wound, left S81.802A Encounter type: initial encounter Skin excoriation T14.8XXA Time Spent (min) 16 Wound Orders Wound Number 1: Left posterior lower leg wound, limited to breakdown of skin Does Wound require Debridement?: No Duration: 14 Days Dressing change frequency: Daily Wound Cleansing: Saline Skin Barriers/Tricia-Wound Care: Vitamin A&D Ointment Primary Wound Care Dressing: Hydrofera Blue Secondary Wound Care Dressing: Covaderm Bathing/Showering/Hygiene: May shower without wound dressing Off-Loading: Low air-loss mattress (bariatric) and Turn and reposition every 2 hours Edema Control: Elevate legs to heart level for 30 mins daily and/or when sitting, Avoid standing for long periods of time and Other Edema Control Order/Instructions: (lymphedema wraps to be placed to bilateral lower extremities by Occupational therapy daily (Thu-)) Wound Number 2: Left posterior upper thigh Does Wound require Debridement?: No Duration: 14 Days Dressing change frequency: Daily and Other (prn if soiled or saturated.) Wound Cleansing: Saline Primary Wound Care Dressing: Hydrofera blue Secondary Wound Care Dressing: Covaderm Bathing/Showering/Hygiene: May shower without wound dressing Off-Loading: Low air-loss mattress (bariatric) and Turn and reposition every 2 hours Non Wound Condition: Excoriated skin with erythema to skin folds including panus, bilateral breast, abdomen, bilateral upper and lower extremities Does Wound require Debridement?: No Duration: 14 Days Dressing change frequency: Twice Daily Wound Cleansing: Soap and Water Skin Barriers/Tricia-Wound Care: Vitamin A&D Ointment (apply to dry skin patches to mid back and to bilateral glutes. ) Primary Wound Care Dressing: Interdry with Nystatin Powder (100,000 units per g) Bathing/Showering/Hygiene: May shower without wound dressing Off-Loading: Low air-loss mattress (bariatric) and Turn and reposition every 2 hours
--- NOTE | 2023-09-03 10:25 | PC.CHAP ---
Pastoral Care Encounter/Spiritual Assessment Type of Contact [] Declined med surg nurse visit [] Patient/Family/Request visit [] Outpatient visit [] Follow-up visit [] Physician referral [] Code/Alert [x] Routine visit [] Staff referral [] Actively dying [] Patient sleeping [] Family support [] [] Out of room [] Palliative care [] [x] Receiving care in room [] Pre-surgical visit [] Trauma [] Long length of stay [] ICU visit [] Other: Relational/Emotional Strength [x] Patient feels connected with others/family/visitors/staff [] Distress [] Loneliness/isolation [] Abandonment Spirituality of Patient [x] Person of Juju [] Attends Yazidism of their Juju [x] Believes in Prayer [] Reads Bible or Evangelical materials [] There are Spiritual issues to be addressed Special Service Officer Interventions [x] Prayer [x] Active listening [x] Non-anxious presence [x] Spiritual/emotional support [] Crisis/trauma care [x] Spiritual counseling [] Bereavement support [] Provided bereavement packet [] Provided Bible/devotional materials [] Provided toy/stuffed animal, coloring book to patient or family member [] Provided Communion [] Anointing/[place] [] Salvation [x] Completed spiritual assessment [] Other: Impact on Illness or Injury [] Angry [] Fearful [] Anxious [] Often cries [] Exhaustion [] Unable to work [] Unable to attend restoration [] Unable to walk/stand [] Unable to read [] Unable to drive [] Unable to eat/drink [] Unable to sleep [] Unable to be with family [] Patient intubated [] Other: Summary senior unable to walk well need rehab at home well go home Time spent with patient 10 mins
[2023-09-03] MEDS: nystatin powder 15 gm Btl 1 APPLIC TOPICAL ×2 (10:32→18:49)
--- NOTE | 2023-09-03 12:22 | P.PN_ITS ---
Subjective Subjective: Patient reports lower extremities feel about the same as yesterday. She reports she was able to stand with much assistance yesterday. Otherwise, she denies fevers, chills, nausea or emesis. Denies constipation. Medications: Reviewed: Yes Vitals/I&O/Wt Last Vital Signs Temp 97.1 F L 09/03/23 08:00 Pulse 90 09/03/23 08:00 Resp 18 09/03/23 08:00 BP 148/62 09/03/23 08:00 Pulse Ox 98 09/03/23 08:00 O2 Del Method Nasal Cannula 09/03/23 08:00 O2 Flow Rate 3 09/03/23 07:50 FiO2 21 09/01/23 21:10 09/02/23 09/03/23 09/03/23 22:59 06:59 14:59 Intake Total 480 / 1560 Output Total 3075 / 6525 350 / 6875 3500 / 3500 Balance -2595 / -4965 -350 / -5315 -3500 / -3500 Weight last 48 hrs Weight 199.637 kg Weight 1996.77 kg Physical Exam Narrative: General: Patient is awake. Alert. Pleasant. Head: Normocephalic. Atraumatic. EOM intact. Neck: No JVD. Cardiovascular: RRR. No gallops. No murmurs. Lungs: Clear to auscultation, no use of accessory muscles, no crackles or wheez es. Skin: No jaundice. No rashes. Abdomen: Normal bowel sounds, abdomen soft and nontender. Extremities: Numerous wounds. All wounds were not examined today. Musculoskeletal: Severe lymphedema of lower extremities. Neurological: Moves all 4 extremities. No myoclonus. Urinary Catheter Management: Newman: Cath Placed During This Visit: yes Reason for Continuing Indwelling Catheter: Assist Healing of Perineal & Sacral Wounds- Incontinent Patients Urinary Catheter Date of Insertion: 09/01/23 Urinary Catheter Time of Insertion: 04:43 Data 09/03/23 05:02 09/03/23 05:02 A&P Assessment and plan (1) Skin excoriation: Wound care following, defer management to specialist Encouraging mobilization through therapy (2) Anasarca: Continue IV diuresis Monitor renal function and electrolytes (3) Morbid obesity: Would benefit from weight loss (4) Debility: Continue therapy (5) Weight gain: IV diuresis as above (6) Inability to walk: Reducing weight with diuresis and volume improvement Continue therapy Plan DVT ppx: Heparin Code: Full Attestations Medical Necessity Statement*: Patient requires ongoing hospitalization for wound care, IV diuresis, therapy evaluation, and supportive care. Coding Level of Care Code Acute Code for Chg Fwd Diagnoses Skin excoriation T14.8XXA Anasarca R60.1 Morbid obesity E66.01 Debility R53.81 Weight gain R63.5 Inability to walk R26.2
[2023-09-03] MEDS: acetaminophen 325 mg Tablet 650 MG PO (18:48)
[2023-09-03 22:30] LABS: Bilirubin Urine Neg (Negative); Blood Urine 3+ (Negative); Glucose Urine UA Norm (Normal); Ketones Urine Negative (Negative); Nitrate Urine Negative (Negative); Protein Urine Neg (Negative); Urine Appearance Cloudy (CLEAR); Urine Color Yellow (Yellow); Urobilinogen Urine 1 mg/dL (Negative); pH Urine 6 (5-7)
[2023-09-03 22:31] LABS: Add Urine Culture? Yes; Add Urine Microscopic? YES; Bacteria Urine 2+ /hpf; Leukocyte Esterase Urine Negative (Negative); RBC Urine 40-50 /hpf (0-2)
[2023-09-04] VITALS (7 sets, daily range): BP systolic 105–138; BP diastolic 68–83; PULSE 69–82; RESP 17–18; TEMP 36.6–36.8; O2SAT 94–98
[2023-09-04] MEDS: FUROsemide 10 mg/mL SDV 10mL 60 MG IVP ×2 (03:59→16:21)
[2023-09-04 05:47] LABS: Albumin Level 3.1 g/dL (3.5-5.2); Anion Gap 12.5 (5-19); Blood Urea Nitrogen 15 mg/dL (8-23); Calcium 8.9 mg/dL (8.5-10.5); Carbon Dioxide 34 mmol/L (22-29); Chloride 96 mmol/L (98-107); Glomerular Filtration Rate 162.3 mL/min (90-130); Glucose 87 mg/dL (65-115); Magnesium 2.3 mg/dL (1.7-2.3); Phosphorus 3.3 mg/dL (2.5-4.5); Potassium 3.5 mmol/L (3.5-5.1); Sodium 139 mmol/L (136-145)
[2023-09-04] MEDS: enoxaparin 40 mg/0.4 mL Syringe SUBCUT (06:33)
--- NOTE | 2023-09-04 10:49 | PM.PN ---
Subjective Subjective: Patient reports urinary burning overnight. Urinalysis obtained. She reports history of prior UTI. She continues to endorse severe lower extremity weakness. She has been working with therapy. Denies fevers, chills, nausea or emesis. Medications: Reviewed: Yes Vitals/I&O/Wt Last Vital Signs Temp 98.3 F 09/04/23 08:00 Pulse 74 09/04/23 08:00 Resp 18 09/04/23 08:00 BP 134/79 09/04/23 08:00 Pulse Ox 94 09/04/23 08:00 O2 Del Method CPAP 09/04/23 04:00 O2 Flow Rate 1 09/03/23 19:41 FiO2 21 09/01/23 21:10 09/03/23 09/04/23 09/04/23 22:59 06:59 14:59 Intake Total 120 / 720 Output Total 200 / 3700 4525 / 8225 Balance -80 / -2980 -4525 / -7505 Weight last 48 hrs Weight 199.637 kg Physical Exam Narrative: General: Patient is awake. Alert. Pleasant. Head: Normocephalic. Atraumatic. EOM intact. Neck: No JVD. Cardiovascular: RRR. No gallops. No murmurs. Lungs: Clear to auscultation, no use of accessory muscles, no crackles or wheezes. Skin: No jaundice. No rashes. Abdomen: Normal bowel sounds, abdomen soft and nontender. Extremities: Numerous wounds. All wounds were not examined today. Musculoskeletal: Severe lymphedema of lower extremities, but much improved with respect to edema from prior exams. Neurological: Moves all 4 extremities. No myoclonus. Urinary Catheter Management: Newman: Cath Placed During This Visit: yes Reason for Continuing Indwelling Catheter: Assist Healing of Perineal & Sacral Wounds- Incontinent Patients Urinary Catheter Date of Insertion: 09/01/23 Urinary Catheter Time of Insertion: 04:43 Data 09/03/23 05:02 09/04/23 04:49 A&P Assessment and plan (1) Skin excoriation: Wound care following, defer management to specialist Encouraging mobilization through therapy Urinary catheter for now (2) Anasarca: Continue IV diuresis Monitor renal function and electrolytes (3) Morbid obesity: Would benefit from weight loss (4) Debility: Continue therapy (5) Weight gain: IV diuresis as above (6) Inability to walk: Reducing weight with diuresis and volume improvement Continue therapy Plan DVT ppx: Heparin Code: Full Attestations Medical Necessity Statement*: Patient requires ongoing hospitalization for wound care, IV diuresis, therapy evaluation, and supportive care Coding Level of Care Code Acute Code for Chg Fwd Diagnoses Skin excoriation T14.8XXA Anasarca R60.1 Morbid obesity E66.01 Debility R53.81 Weight gain R63.5 Inability to walk R26.2
[2023-09-04] MEDS: nystatin powder 15 gm Btl 1 APPLIC TOPICAL ×2 (11:12→19:17)
--- NOTE | 2023-09-04 11:31 | P.PN_ITS ---
Subjective Subjective: Ms. Yao's lower extremities look much improved. She received her lymphedema wraps yesterday to her bilateral lower extremities by Occupational Therapy. Bilateral lower extremity calf circumference has decreased by greater than 15cm. Ms. Yao continues to diuresis with over 18L off thus far. Ms. Yao will wear her lymphedema wraps for three days total and have them removed on Thursday09/06/23. I have encouraged Ms. Yao to continue offloading maneuvers. Medications: Reviewed: Yes Vitals/I&O/Wt Last Vital Signs Temp 98.3 F 09/04/23 08:00 Pulse 74 09/04/23 08:00 Resp 18 09/04/23 08:00 BP 134/79 09/04/23 08:00 Pulse Ox 94 09/04/23 08:00 O2 Del Method CPAP 09/04/23 04:00 O2 Flow Rate 1 09/03/23 19:41 FiO2 21 09/01/23 21:10 09/03/23 09/04/23 09/04/23 22:59 06:59 14:59 Intake Total 120 / 720 Output Total 200 / 3700 4525 / 8225 Balance -80 / -2980 -4525 / -7505 Weight last 48 hrs Weight 199.637 kg Physical Exam Const: COMMON NORMALS: patient oriented x3 and alert GENERAL APPEARANCE: cooperative NUTRITIONAL APPEARANCE: obese morbidly obese ORIENTATION/CONSCIOUSNESS: Yes awake HENMT: COMMON NORMALS: oropharynx normal Neck/C-Spine: COMMON NORMALS: no JVD Resp: COMMON NORMALS: normal respiratory effort and clear to auscultation sp aterally AUSCULTATION: clear to auscultation bilaterally Cardio: COMMON NORMALS: no JVD, regular rhythm, S1 normal heart sound present, S2 normal heart sound present and No murmurs present (Cardio) RHYTHM: regular rhythm HEART SOUNDS: S1 normal heart sound present and S2 normal heart sound present GI: COMMON NORMALS: Normal to inspection, nondistended, normoactive bowel sounds present, Soft to palpation and non-tender PALPATION: Yes Soft to palpation Extremity: COMMON NORMALS: no joint enlargement GENERAL: Yes edema (Severe edema BL LE, L>R) Neuro: COMMON NORMALS: patient oriented x3 and moves all extremities SENSORIUM/ORIENTATION: Yes alert Skin: WOUNDS: Yes wounds noted (Left posterior lower leg and left posterior thigh) size (left posterior lower leg 3x2x0.2cm, left posterior thigh 9x2x0.1cm ), bed pink, drainage serous, margins well defined, without odor and open OTHER: Severe edema BL LE with few areas of weeping of bilateral lower extremity, stasis dermatitis on the left, multiple ulcerations, otherwise dry, scaly cracking skin of legs including thighs. Urinary Catheter Management: Newman: Cath Placed During This Visit: yes Reason for Continuing Indwelling Catheter: Assist Healing of Perineal & Sacral Wounds- Incontinent Patients Urinary Catheter Date of Insertion: 09/01/23 Urinary Catheter Time of Insertion: 04:43 Data 09/03/23 05:02 09/04/23 04:49 A&P Assessment and plan (1) Leg wound, left: Daily dressing changes, cleanse with saline Hydrofera blue and covaderm. Lymphedema wraps to bilateral lower extremities daily (Thu-)by Occupational Therapy. Lymphedema wraps removed on Thursday09/06/23. Qualifiers: Encounter type: initial encounter Qualified Code(s): S81.802A - U nspecified open wound, left lower leg, initial encounter (2) Skin excoriation: Excoriation and erythema to skin folds including panus, bilateral breast, abdomen, bilateral upper and lower extremities. Interdry and nystatin powder BID. Barrier ointment to be placed once daily to dry scaly patches of skin. Attestations Medical Necessity Statement*: Patient requires ongoing hospitalization for wound care, IV diuresis, therapy evaluation, and supportive care Time Spent in Patient Care: 16 - 35 minutes (>than 50% of time spent in counselling and/or direct pt care on unit) . Coding Level of Care Code 45286 Diagnoses Leg wound, left S81.802A Encounter type: initial encounter Skin excoriation T14.8XXA Wound Orders Wound Number 1: Left posterior lower leg wound, limited to breakdown of skin Does Wound require Debridement?: No Duration: 14 Days Dressing change frequency: Daily Wound Cleansing: Saline Skin Barriers/Tricia-Wound Care: Vitamin A&D Ointment Primary Wound Care Dressing: Hydrofera Blue Secondary Wound Care Dressing: Covaderm Bathing/Showering/Hygiene: May shower without wound dressing Off-Loading: Low air-loss mattress (bariatric) and Turn and reposition every 2 hours Edema Control: Elevate legs to heart level for 30 mins daily and/or when sitting, Avoid standing for long periods of time and Other Edema Control Order/Instructions: (lymphedema wraps to be placed to bilateral lower extr emities by Occupational therapy daily (Thu-)) Wound Number 2: Left posterior upper thigh Does Wound require Debridement?: No Duration: 14 Days Dressing change frequency: Daily and Other (prn if soiled or saturated.) Wound Cleansing: Saline Primary Wound Care Dressing: Hydrofera blue Secondary Wound Care Dressing: Covaderm Bathing/Showering/Hygiene: May shower without wound dressing Off-Loading: Low air-loss mattress (bariatric) and Turn and reposition every 2 hours Non Wound Condition: Excoriated skin with erythema to skin folds including panus, bilateral breast, abdomen, bilateral upper and lower extremities Does Wound require Debridement?: No Duration: 14 Days Dressing change frequency: Twice Daily Wound Cleansing: Soap and Water Skin Barriers/Tricia-Wound Care: Vitamin A&D Ointment (apply to dry skin patches to mid back and to bilateral glutes. ) Primary Wound Care Dressing: Interdry with Nystatin Powder (100,000 units per g) Bathing/Showering/Hygiene: May shower without wound dressing Off-Loading: Low air-loss mattress (bariatric) and Turn and reposition every 2 hours
[2023-09-05] VITALS: BP 122/78; PULSE 73; RESP 18; TEMP 36.4; O2SAT 97
[2023-09-05 04:00] VITALS: BP 124/80; PULSE 74; RESP 17; TEMP 36.4; O2SAT 98
[2023-09-05] MEDS: FUROsemide 10 mg/mL SDV 10mL 60 MG IVP (04:38)
[2023-09-05 05:18] LABS: Albumin Level 3.2 g/dL (3.5-5.2); Anion Gap 13.3 (5-19); Blood Urea Nitrogen 19 mg/dL (8-23); Calcium 8.8 mg/dL (8.5-10.5); Carbon Dioxide 32 mmol/L (22-29); Chloride 96 mmol/L (98-107); Glomerular Filtration Rate 125.4 mL/min (90-130); Glucose 87 mg/dL (65-115); Phosphorus 3.3 mg/dL (2.5-4.5); Potassium 3.3 mmol/L (3.5-5.1); Sodium 138 mmol/L (136-145)
[2023-09-05] MEDS: enoxaparin 40 mg/0.4 mL Syringe SUBCUT (06:21)
[2023-09-05 07:48] VITALS: BP 130/76; PULSE 76; RESP 20; TEMP 36.1; O2SAT 92
[2023-09-05] MEDS: potassium chloride ER 20 mEq Tablet 40 MEQ PO ×2 (08:42→14:19)
[2023-09-05] MEDS: nystatin powder 15 gm Btl 1 APPLIC TOPICAL ×2 (08:42→17:39)
--- NOTE | 2023-09-05 10:27 | PM.PN ---
Subjective Subjective: Patient endorses improvement in lower extremity swelling. She does express concern how she was able to accumulate that much fluid. Denies fevers, chills, nausea, or shortness of breath. No urinary complaints today. She is concerned about kidneys with the diuresis. We discussed her kidney numbers which are being monitored closely. Medications: Reviewed: Yes Vitals/I&O/Wt Last Vital Signs Temp 97.0 F L 09/05/23 07:48 Pulse 76 09/05/23 07:48 Resp 20 H 09/05/23 07:48 BP 130/76 09/05/23 07:48 Pulse Ox 92 09/05/23 07:48 O2 Del Method Room Air 09/05/23 07:48 O2 Flow Rate 1 09/04/23 20:00 FiO2 21 09/01/23 21:10 09/04/23 09/05/23 09/05/23 22:59 06:59 14:59 Intake Total 240 / 720 Output Total 6300 / 6300 2200 / 8500 1200 / 1200 Balance -6060 / -5580 -2200 / -7780 -1200 / -1200 Physical Exam Narrative: General: Patient is awake. Alert. Pleasant. Laying in bed. Conversational. Head: Normocephalic. Atraumatic. EOM intact. Neck: No JVD. Cardiovascular: RRR. No gallops. No murmurs. Lungs: Clear to auscultation, no use of accessory muscles, no crackles or wheezes. Skin: No jaundice. No rashes. Abdomen: Normal bowel sounds, abdomen soft and nontender. Extremities: Numerous wounds. All wounds were not examined today. Musculoskeletal: Severe lymphedema of lower extremities, slightly less swollen than yesterday's exam. Neurological: Moves all 4 extremities. No myoclonus. Urinary Catheter Management: Newman: Cath Placed During This Visit: yes Reason for Continuing Indwelling Catheter: Other Urinary Catheter Date of Insertion: 09/01/23 Urinary Catheter Time of Insertion: 04:43 Data 09/03/23 05:02 09/05/23 04:33 A&P Assessment and plan (1) Skin excoriation: Wound care following, defer management to specialist Encouraging mobilization through therapy Continue urinary catheter for now (2) Anasarca: Continue IV diuresis, probably will need adjusted on Thursday Monitor renal function and electrolytes, creatinine starting to increase (3) Morbid obesity: Would benefit from weight loss (4) Debility: Continue therapy (5) Weight gain: IV diuresis as above (6) Inability to walk: Reducing weight with diuresis and volume improvement Continue therapy Plan DVT ppx: Heparin Code: Full Attestations Medical Necessity Statement*: Patient requires ongoing hospitalization for wound care, IV diuresis, therapy evaluation, and supportive care Coding Level of Care Code Acute Code for [facility] Fwd Diagnoses Skin excoriation T14.8XXA Anasarca R60.1 Morbid obesity E66.01 Debility R53.81 Weight gain R63.5 Inability to walk R26.2
[2023-09-05 11:36] VITALS: BP 125/83; PULSE 78; RESP 20; TEMP 36.2; O2SAT 92
[2023-09-05] MEDS: FUROsemide 10 mg/mL SDV 10mL 40 MG IVP (12:21)
[2023-09-05 16:52] VITALS: BP 120/74; PULSE 81; RESP 18; TEMP 36.5; O2SAT 92
--- NOTE | 2023-09-05 17:36 | P.PN_ITS ---
Subjective Subjective: Ms. Yao's lower extremities look improved since yesterday. She continues to have greater movement each day to her bilateral lower extremities. Ms. Yao is working her legs in the bed with active ROM. She reports she continues to work with Physical Therapy daily on sitting, standing and taking a few steps. Ms. Yao continues to diuresis with over 20L off thus far. Wound dressings are dry and intact. Staff reports daily dressing changes have been performed this morning. Ms. Yao will wear her lymphedema wraps for three days total and have them removed on Thursday09/06/23. I have encouraged Ms. Yao to continue offloading maneuvers. Medications: Reviewed: Yes Vitals/I&O/Wt Last Vital Signs Temp 97.7 F 09/05/23 16:52 Pulse 81 09/05/23 16:52 Resp 18 09/05/23 16:52 BP 120/74 09/05/23 16:52 Pulse Ox 92 09/05/23 16:52 O2 Del Method Room Air 09/05/23 16:52 O2 Flow Rate 1 09/04/23 20:00 FiO2 21 09/01/23 21:10 09/05/23 09/05/23 09/05/23 06:59 14:59 22:59 Intake Total 60 / 60 120 / 180 Output Total 2200 / 8500 4700 / 4700 Balance -2200 / -7780 -4640 / -4640 120 / -4520 Physical Exam Narrative: General: Patient is awake. Alert. Pleasant. Laying in bed. Conversational. Head: Normocephalic. Atraumatic. EOM intact. Neck: No JVD. Cardiovascular: RRR. No gallops. No murmurs. Lungs: Clear to auscultation, no use of accessory muscles, no crackles or wheezes. Skin: No jaundice. No rashes. Abdomen: Normal bowel sounds, abdomen soft and nontender. Extremities: Numerous wounds. All wounds were not examined today. Lymphedema wraps present to bilateral lower extremities to the knees. Musculoskeletal: Severe lymphedema of lower extremities, slightly less swollen than yesterday's exam. Neurological: Moves all 4 extremities. No myoclonus. Urinary Catheter Management: Newman: Cath Placed During This Visit: yes Reason for Continuing Indwelling Catheter: Other Urinary Catheter Date of Insertion: 09/01/23 Urinary Catheter Time of Insertion: 04:43 Data 09/03/23 05:02 09/05/23 04:33 Micro: Microbiology 09/03/23 21:35 Urine Culture - Preliminary Urine,Clean Catch A&P Assessment and plan (1) Leg wound, left: Daily dressing changes, cleanse with saline Hydrofera blue and covaderm. Lymphedema wraps to bilateral lower extremities daily (Mon-)by Occupational Therapy. Lymphedema wraps removed on Thursday09/06/23. Qualifiers: Encounter type: initial encounter Qualified Code(s): S81.802A - Unspecified open wound, left lower leg, initial encounter (2) Skin excoriation: Excoriation and erythema to skin folds including panus, bilateral breast, abdomen, bilateral upper and lower extremities. Interdry and nystatin powder BID. Barrier ointment to be placed once daily to dry scaly patches of skin. Attestations Medical Necessity Statement*: Patient requires ongoing hospitalization for wound care, IV diuresis, therapy evaluation, and supportive care Time Spent in Patient Care: 16 - 35 minutes (>than 50% of time spent in counselling and/or direct pt care on unit) . Coding Level of Care Code 71855 Moderate Time for a total of 16 minutes, includes reviewing past or interval history, examining/interviewing patient, placing orders, counseling patient/family/other support, discussing plan of care with staff, communicating with other healthcare providers, documenting encounter and coordinating care Other Coding Information Focused coding review requested Diagnoses Leg wound, left S81.802A Encounter type: initial encounter Skin excoriation T14.8XXA Time Spent (min) 16
[2023-09-05] MEDS: acetaminophen 325 mg Tablet 650 MG PO (17:39)
[2023-09-05 19:42] VITALS: BP 109/65; PULSE 79; RESP 19; TEMP 36.7; O2SAT 91
[2023-09-06] VITALS (7 sets, daily range): BP systolic 108–136; BP diastolic 64–85; PULSE 70–86; RESP 16–21; TEMP 36.1–36.7; O2SAT 91–99
[2023-09-06] MEDS: FUROsemide 10 mg/mL SDV 10mL 40 MG IVP ×2 (00:17→10:42)
[2023-09-06 05:25] LABS: Albumin Level 3.3 g/dL (3.5-5.2); Blood Urea Nitrogen 26 mg/dL (8-23); Carbon Dioxide 36 mmol/L (22-29); Chloride 95 mmol/L (98-107); Glomerular Filtration Rate 125.4 mL/min (90-130); Glucose 89 mg/dL (65-115); Magnesium 2.3 mg/dL (1.7-2.3); Phosphorus 3.2 mg/dL (2.5-4.5); Sodium 138 mmol/L (136-145)
[2023-09-06 05:29] LABS: Anion Gap 10.7 (5-19); Potassium 3.7 mmol/L (3.5-5.1)
[2023-09-06] MEDS: enoxaparin 40 mg/0.4 mL Syringe SUBCUT (06:21)
--- NOTE | 2023-09-06 08:55 | PC.NURSE ---
Report received from Amandeep Coates , charge nurse. Care assumed.
--- NOTE | 2023-09-06 09:00 | PC.NURSE ---
Assessment: Skin issues are multiple. Excoriation in skin folds, under breasts, apnnus, etc. Her upper thighs have thick crusty skin. Her lower legs are purple with opened areas, See wounds care. She hs a large purple bruise right inner upper arm. There is a foul odor emanating from pt's skin.
[2023-09-06] MEDS: nystatin powder 15 gm Btl 1 APPLIC TOPICAL ×2 (10:42→18:15)
--- NOTE | 2023-09-06 14:42 | PM.PN ---
Subjective Subjective: Patient reports strength is improving. She is working more with therapy. Her goal is go go home tomorrow if she is strong enough. She denies fevers, chills, chest pain or shortness of breath. Medications: Reviewed: Yes Vitals/I&O/Wt Last Vital Signs Temp 98.0 F 09/06/23 12:00 Pulse 81 09/06/23 12:00 Resp 20 H 09/06/23 12:00 BP 108/64 09/06/23 12:00 Pulse Ox 93 09/06/23 12:00 O2 Del Method Room Air 09/06/23 12:00 O2 Flow Rate 1 09/05/23 20:00 FiO2 21 09/01/23 21:10 09/05/23 09/06/23 09/06/23 22:59 06:59 14:59 Intake Total 360 / 420 220 / 640 480 / 480 Output Total 1400 / 6100 2050 / 8150 Balance -1040 / -5680 -1830 / -7510 480 / 480 Weight last 48 hrs Weight 195.135 kg Physical Exam Narrative: General: Patient is awake and alert. Head: Normocephalic. Atraumatic. EOM intact. Neck: No JVD. Cardiovascular: RRR. No gallops. No murmurs. Lungs: Clear to auscultation, no use of accessory muscles, no crackles or wheezes. Skin: No jaundice. No rashes. Abdomen: Normal bowel sounds, abdomen soft and nontender. Extremities: Numerous wounds. All wounds were not examined. Musculoskeletal: Severe lymphedema of lower extremities. Neurological: Moves all 4 extremities. No myoclonus. Urinary Catheter Management: Newman: Cath Placed During This Visit: yes Reason for Continuing Indwelling Catheter: Other Urinary Catheter Date of Insertion: 09/01/23 Urinary Catheter Time of Insertion: 04:43 Data 09/03/23 05:02 09/06/23 04:29 Micro: Microbiology 09/03/23 21:35 Urine Culture - Preliminary Urine,Clean Catch Coag positive Staphylococcus Strep species, gamma-hemolytic A&P Assessment and plan (1) Skin excoriation: Wound care following, defer management to specialist Encouraging mobilization through therapy Continue urinary catheter for accurate output (2) Lymphedema: Continue wound care and therapy Elevation Pt is in need of a hospital bed because they need leg and head of bed elevation of 30 degrees or higher; she requires positioning of her body in ways not feasiblew with an ordinary bed (3) Anasarca: IV Lasix dose decreased Monitor renal function and electrolytes (4) Morbid obesity: Would benefit from weight loss (5) Debility: Continue therapy (6) Weight gain: IV diuresis as above (7) Inability to walk: Reducing weight with diuresis and volume improvement Continue therapy Plan DVT ppx: Heparin Code: Full Attestations Medical Necessity Statement*: Patient requires ongoing hospitalization for wound care, IV diuresis, therapy, and supportive care. Coding Level of Care Code Acute Code for [facility] Fwd Diagnoses Skin excoriation T14.8XXA Lymphedema I89.0 Anasarca R60.1 Morbid obesity E66.01 Debility R53.81 Weight gain R63.5 Inability to walk R26.2
[2023-09-06] MEDS: acetaminophen 325 mg Tablet 650 MG PO (16:59)
--- NOTE | 2023-09-06 19:51 | PC.NURSE ---
Shift summary; Pt rested in bed most of shift. See did not do her PT 'homework' of sitting on side of bed at meal times. Pt attempted to work with her this afternoon unsuccessful due to her left lower leg wounds leaking profusely through dressings. Dressing re-enforced with ABD and kerlix. Wound care completed this am, wraps removd fro bialt lower legs and hydrafera blue and optifoam applied on opened areas. Pt tolerated well. Nysatin and intradry applied to her excoriated folds ( see wound care assessment).Even after bathing and dressing pt's wounds foul odor noted. Lasix order changed to daily., Her BUN increased to 26 today from 19. She had 1600ml of yellow urine output. Her family visited with service dog (Lazaro). She received acetaminophen this afternoon for a headache. Per pt that relieved it.
[2023-09-07] VITALS: BP 129/84; PULSE 76; RESP 16; TEMP 36.4; O2SAT 97
[2023-09-07 04:00] VITALS: BP 164/92; PULSE 78; RESP 15; TEMP 36.4; O2SAT 98
[2023-09-07] MEDS: enoxaparin 40 mg/0.4 mL Syringe SUBCUT (07:00)
[2023-09-07 07:06] LABS: Albumin Level 3.2 g/dL (3.5-5.2); Anion Gap 9.7 (5-19); Blood Urea Nitrogen 28 mg/dL (8-23); Calcium 9.4 mg/dL (8.5-10.5); Carbon Dioxide 35 mmol/L (22-29); Chloride 97 mmol/L (98-107); Glomerular Filtration Rate 162.3 mL/min (90-130); Glucose 90 mg/dL (65-115); Magnesium 2.3 mg/dL (1.7-2.3); Phosphorus 3.3 mg/dL (2.5-4.5); Potassium 3.7 mmol/L (3.5-5.1); Sodium 138 mmol/L (136-145)
[2023-09-07 07:56] VITALS: BP 155/86; PULSE 83; RESP 18; TEMP 36.5; O2SAT 92
[2023-09-07] MEDS: FUROsemide 10 mg/mL SDV 10mL 40 MG IVP (08:35)
[2023-09-07] MEDS: nystatin powder 15 gm Btl 1 APPLIC TOPICAL (08:36)
--- NOTE | 2023-09-07 11:48 | P.DS_ITS ---
Discharge Providers Date of Admission: 09/02/23 12:16 Date of Discharge: September 07, 2023 Attending Provider at Admission: Mitchel Apodaca Attending Provider at Discharge: Natalia Carey MD Primary Care Provider: Aki Marmolejo DO Diagnoses at Discharge Discharge Diagnosis (1) Skin excoriation: Status: Acute (2) Lymphedema: Status: Acute (3) Anasarca: Status: Acute (4) Morbid obesity: Status: Acute (5) Debility: Status: Acute (6) Weight gain: Status: Acute (7) Inability to walk: Status: Acute Reason for Visit Reason for Visit: lower extremity edema Hospital Course Hospital Course 63-year female with chronic history of lymphedema has been dealing with lymphedema with wraps and wound care clinic for last 10 to 12 years, stating that she present to the hospital for weight gain although she has not changed her diet, she is stating that now she is leading a sedentary lifestyle because of weight gain. Please note patient has not followed up with [place] wound care, wound care clinic did give her the referral. She is stating that this is too far. She has remained afebrile, lymphedema wraps were done during hospitalization. Venous Dopplers were inconclusive, she remained in sinus rhythm no hypoxia or tachycardia. She will be discharged back home, hospital bed has been arranged along wheelchair, bedside commode. I will give her doxycycline as well for nonpurulent cellulitis, was updated before discharge, patient does not want to go to SNF/rehab. Physical Exam Narrative: Awake and alert Anasarca improving Currently on room air Left leg oozing of blood noted Blood blister Lymphedema Excoriation with hyperemia noted around abdominal fold Urinary Catheter Management: Newman: Cath Placed During This Visit: yes Reason for Continuing Indwelling Catheter: Other Urinary Catheter Date of Insertion: 09/01/23 Urinary Catheter Time of Insertion: 04:43 Discharge Data Studies Completed and Pending Completed Studies During Hospitalization Category Date Time Status XR chest 1V portable [id number] Stat Exams 09/01/23 01:05 [place] [id number] Routine Ultrasound 09/01/23 06:57 Completed Pending at discharge Category Date Time Status Urine Culture Routine Lab 09/03/23 21:35 Results Radiology Impressions Chest X-Ray 09/01/23 01:05 IMPRESSION: 1. Evaluation limited by patient body habitus. 2. No acute findings. Laboratory Results WBC 4.16 10^3/uL (3.29-11.43) 09/03/23 05:02 RBC 4.65 10^6/uL (3.85-5.65) 09/03/23 05:02 Hgb 13.20 g/dL (11.27-16.99) 09/03/23 05:02 Hct 44.2 % (36-47) 09/03/23 05:02 MCV 95.1 fl (85-98) 09/03/23 05:02 MCH 28.4 pg (27-33) 09/03/23 05:02 MCHC 29.9 g/dL (30-55) L 09/03/23 05:02 RDW 17.4 % (12.1-15.1) H 09/03/23 05:02 Plt Count 197 10^3/cmm (157-399) 09/03/23 05:02 MPV 9.8 fL (7.4-10.4) 09/03/23 05:02 Neut % (Auto) 69.5 % 09/03/23 05:02 Lymph % (Auto) 15.6 % 09/03/23 05:02 Lamar % (Auto) 10.6 % 09/03/23 05:02 Eos % (Auto) 3.6 % 09/03/23 05:02 Baso % (Auto) 0.5 % 09/03/23 05:02 Neut # (Auto) 2.89 10^3/uL (1.8-7.7) 09/03/23 05:02 Lymph # (Auto) 0.7 10^3/uL (0.8-4.8) L 09/03/23 05:02 Lamar # (Auto) 0.4 10^3/uL (0.2-0.9) 09/03/23 05:02 Eos # (Auto) 0.2 10^3/uL (0.0-0.8) 09/03/23 05:02 Baso # (Auto) 0.0 10^3/uL (0.0-0.1) 09/03/23 05:02 Nucleated RBC % (auto) 0 % 09/03/23 05:02 Nucleated RBCs # 0.0 /100WBC 09/03/23 05:02 Sodium 138 mmol/L (136-145) 09/07/23 06:05 Potassium 3.7 mmol/L (3.5-5.1) 09/07/23 06:05 Chloride 97 mmol/L (98-107) L 09/07/23 06:05 Carbon Dioxide 35 mmol/L (22-29) H 09/07/23 06:05 Anion Gap 9.7 (5-19) 09/07/23 06:05 BUN 28 mg/dL (8-23) H 09/07/23 06:05 Creatinine 0.4 mg/dL (0.5-0.9) L 09/07/23 06:05 GFR Calculation 162.3 mL/min (90-130) H 09/07/23 06:05 Glucose 90 mg/dL (65-115) 09/07/23 06:05 POC Glucose 85 mg/dL (70-110) 09/01/23 16:51 Calculated Osmolality 290 mOsm/kg (285-295) 09/03/23 05:02 Calcium 9.4 mg/dL (8.5-10.5) 09/07/23 06:05 Phosphorus 3.3 mg/dL (2.5-4.5) 09/07/23 06:05 Magnesium 2.3 mg/dL (1.7-2.3) 09/07/23 06:05 Total Bilirubin 0.5 mg/dL (0.15-1.2) 09/01/23 00:22 AST 11 U/L (0-32) 09/01/23 00:22 ALT 10 U/L (0-33) 09/01/23 00:22 Alkaline Phosphatase 65 U/L (35-105) 09/01/23 00:22 NT-Pro-B Natriuret Pep 658 pg/mL (0-125) H 09/01/23 00:22 Total Protein 6.8 g/dL (6.6-8.7) 09/01/23 00:22 Albumin 3.2 g/dL (3.5-5.2) L 09/07/23 06:05 Globulin 3.4 g/dL (1.3-4.6) 09/01/23 00:22 Urine Color Yellow (Yellow) 09/03/23 21:35 Urine Appearance Cloudy (CLEAR) A 09/03/23 21:35 Urine pH 6 (5-7) 09/03/23 21:35 Ur Specific Ary 1.020 (1.005-1.030) 09/03/23 21:35 Urine Protein Neg (Negative) 09/03/23 21:35 Urine Glucose (UA) Norm (Normal) 09/03/23 21:35 Urine Ketones Negative (Negative) 09/03/23 21:35 Urine Blood 3+ (Negative) H 09/03/23 21:35 Urine Nitrate Negative (Negative) 09/03/23 21:35 Urine Bilirubin Neg (Negative) 09/03/23 21:35 Urine Urobilinogen 1 mg/dL (Negative) H 09/03/23 21:35 Ur Leukocyte Esterase Negative (Negative) 09/03/23 21:35 Urine RBC 40-50 /hpf (0-2) H 09/03/23 21:35 Urine WBC None /hpf (0-5) 09/03/23 21:35 Ur Squamous Epith Cells None /hpf (0-5) 09/03/23 21:35 Amorphous Sediment Not Reportable 09/03/23 21:35 Urine Bacteria 2+ /hpf (NONE) H 09/03/23 21:35 Vitals Last Vital Signs Temp 97.7 F 09/07/23 07:56 Pulse 83 09/07/23 07:56 Resp 18 09/07/23 07:56 BP 155/86 09/07/23 07:56 Pulse Ox 92 09/07/23 07:56 O2 Del Method Room Air 09/06/23 17:50 O2 Flow Rate 1 09/05/23 20:00 FiO2 21 09/01/23 21:10 Discharge Plan Discharge Patient Disposition: Home Condition: Stable Prescriptions: New doxycycline hyclate 100 mg tablet 100 mg PO BID 7 Days Qty: 14 0RF nystatin [Nystop] 100,000 unit/gram Powder 1 applic topical BID Qty: 30 0RF Continued aspirin 325 mg tablet 325 mg PO DAILY acetaminophen 500 mg tablet 1,000 mg PO Q6H PRN (Reason: Pain) (DME) cpap check and replace See Rx Instructions .Route .MEDSUPPLY Qty: 1 0RF Rx Instructions: As directed (DME) wheel chair, large See Rx Instructions .Route .MEDSUPPLY Qty: 1 0RF Rx Instructions: As directed ketoconazole 2 % shampoo See Rx Instructions .ROUTE .COMPLEX Rx Instructions: Lather into scalp 2 times weekly as needed. Allow to sit on scalp for 5 minutes before rinsing. triamcinolone acetonide 0.1 % ointment See Rx Instructions .ROUTE .COMPLEX Rx Instructions: apply to legs BID M- and off on weekends until follow-up ammonium lactate 12 % cream See Rx Instructions .ROUTE .COMPLEX Rx Instructions: 1 applic topically bid start after using triamcinolone for 2 weeks then use both until f/u as needed fluocinolone and shower cap [[place]-Smoothe/FS Scalp Oil] 0.01 % oil See Rx Instructions .ROUTE .COMPLEX Rx Instructions: Apply to scalp 2-3 times weekly as needed furosemide 40 mg tablet 40 mg PO DAILY Qty: 60 3RF potassium chloride 20 mEq tablet,ER particles/crystals 20 meq PO DAILY Qty: 40 3RF Discharge Orders: Discharge Order (Routine); Ordered 09/07/23 Ordered By: Natalia Carey Other Ambulatory Orders: DME: [employer] (Order) Location: None Selected Ordered By: Prateek Burkett DME: Hospital Bed (Order) Location: None Selected Ordered By: Prateek Burkett DME: Walker (Order) Location: None Selected Ordered By: Prateek Burkett Referrals: Aki Marmolejo DO [Primary Care Provider] - Patient Instructions: Opioid Safety Discharge Attestations Time Spent in Discharge Care*: greater than 30 min Quality Metrics Clinical Quality Measures [ No reported AMI, CVA or VTE this stay] Coding Level of Care Code Acute Code for [facility] Fwd Diagnoses Skin excoriation T14.8XXA Lymphedema I89.0 Anasarca R60.1 Morbid obesity E66.01 Debility R53.81 Weight gain R63.5 Inability to walk R26.2
[2023-09-07 12:00] VITALS: BP 108/70; PULSE 78; RESP 19; TEMP 36.6; O2SAT 93
--- NOTE | 2023-09-07 14:16 | PC.NURSE ---
Discussed discharge paperwork, new medications, continued medications and instructions with patient. Patient verbalized understanding.
[2023-09-07 15:53] VITALS: BP 108/70; PULSE 78; RESP 19; TEMP 36.6; O2SAT 93
== END 2023-09-07 15:30 | disposition home or self-care (01) | DRG 593 ==
LOC: ER 04:42 → MEDSURG 05:11
PROVIDERS: Internal Medicine; Admitting Provider Internal Medicine; Emergency Provider Emergency Medicine; PCP Family Medicine; Visit Provider Internal Medicine
DX: L97.821 Non-pressure chronic ulcer of other part of left lower leg limited to breakdown of skin (principal); Z68.45 Body mass index [BMI] 70 or greater, adult; I89.0 Lymphedema, not elsewhere classified; E66.01 Morbid (severe) obesity due to excess calories; S30.811A Abrasion of abdominal wall, initial encounter; L40.9 Psoriasis, unspecified; M47.816 Spondylosis without myelopathy or radiculopathy, lumbar region; E78.5 Hyperlipidemia, unspecified; I10 Essential (primary) hypertension; G47.419 Narcolepsy without cataplexy; G47.33 Obstructive sleep apnea (adult) (pediatric); F17.210 Nicotine dependence, cigarettes, uncomplicated; I73.9 Peripheral vascular disease, unspecified; I87.2 Venous insufficiency (chronic) (peripheral); Z86.718 Personal history of other venous thrombosis and embolism; Z79.82 Long term (current) use of aspirin; Z95.828 Presence of other vascular implants and grafts; Z87.440 Personal history of urinary (tract) infections
CPT/HCPCS: 36415; 36416; 51702; 71045; 80048; 80053; 80069; 81001; 82962; 83735; 83880; 85025; 87077; 87086; 87186; 93005; 93970; 96372; 96374; 97110; 97116; 97124; 97162; 97167; 97530; 99285; A9281; G0378; J1650; J1940

== ENCOUNTER → 2023-10-05 12:52 | Outpatient (BNVA) | payer MEDICAID, SELFPAY | PROVIDERS: PCP Family Medicine; Visit Provider Podiatrist Foot & Ankle Surgery | DX: L60.3 Nail dystrophy; I73.9 Peripheral vascular disease, unspecified; G62.9 Polyneuropathy, unspecified; L84 Corns and callosities | CPT/HCPCS: 11055; 11721 ==

== ENCOUNTER → 2023-12-14 08:12 | Outpatient (BNVA) | payer MEDICAID, SELFPAY | PROVIDERS: PCP Family Medicine; Visit Provider Nurse Practitioner Family | DX: I89.0 Lymphedema, not elsewhere classified (principal) | CPT/HCPCS: 29581; 99213; A6213 ==

== ENCOUNTER 2023-12-17 13:00 | Outpatient (CLI) | payer MEDICAID, SELFPAY | END 2023-12-17 13:01 | disposition home or self-care (01) | LOC: SLEEP 12-21 09:44 | PROVIDERS: PCP Family Medicine; Visit Provider Family Medicine | DX: R06.00 Dyspnea, unspecified (principal) | CPT/HCPCS: 29581; 94762; A6210 ==

== ENCOUNTER → 2023-12-28 08:31 | Outpatient (BNVA) | payer MEDICAID, SELFPAY | PROVIDERS: PCP Family Medicine; Visit Provider Nurse Practitioner Family | DX: I96 Gangrene, not elsewhere classified (principal); S80.822D Blister (nonthermal), left lower leg, subsequent encounter; X58.XXXD Exposure to other specified factors, subsequent encounter | CPT/HCPCS: 97597; A6251 ==

== ENCOUNTER → 2023-12-30 15:32 | Outpatient (BNVA) | payer MEDICAID, SELFPAY | PROVIDERS: PCP Family Medicine; Visit Provider Thoracic Surgery (Cardiothoracic Vascular Surgery) | DX: I89.0 Lymphedema, not elsewhere classified (principal) | CPT/HCPCS: 29581; A6212; A6251 ==

== ENCOUNTER → 2024-01-04 09:04 | Outpatient (BNVA) | payer MEDICAID, SELFPAY | PROVIDERS: PCP Family Medicine; Visit Provider Nurse Practitioner Family | DX: I96 Gangrene, not elsewhere classified (principal); S80.822D Blister (nonthermal), left lower leg, subsequent encounter; X58.XXXD Exposure to other specified factors, subsequent encounter | CPT/HCPCS: 11042; 87400; A6252 ==

== ENCOUNTER → 2024-01-11 08:56 | Outpatient (BNVA) | payer MEDICAID, SELFPAY | PROVIDERS: PCP Family Medicine; Visit Provider Nurse Practitioner Family | DX: I89.0 Lymphedema, not elsewhere classified (principal); L97.821 Non-pressure chronic ulcer of other part of left lower leg limited to breakdown of skin | CPT/HCPCS: 97597; A6251 ==

== ENCOUNTER → 2024-01-18 09:05 | Outpatient (BNVA) | payer MEDICAID, SELFPAY | PROVIDERS: PCP Family Medicine; Visit Provider Nurse Practitioner Family | DX: I89.0 Lymphedema, not elsewhere classified (principal); L97.822 Non-pressure chronic ulcer of other part of left lower leg with fat layer exposed; Z91.199 Patient's noncompliance with other medical treatment and regimen due to unspecified reason | CPT/HCPCS: 11042; 11045; A6252 ==

== ENCOUNTER → 2024-01-26 15:05 | Outpatient (BNVA) | payer MEDICAID, SELFPAY | PROVIDERS: PCP Family Medicine; Visit Provider Thoracic Surgery (Cardiothoracic Vascular Surgery) | DX: I89.0 Lymphedema, not elsewhere classified (principal); L97.822 Non-pressure chronic ulcer of other part of left lower leg with fat layer exposed | CPT/HCPCS: 11042; 97597; 97598; A6251 ==

== ENCOUNTER → 2024-02-02 13:24 | Outpatient (BNVA) | payer MEDICAID, SELFPAY | PROVIDERS: PCP Family Medicine; Visit Provider Thoracic Surgery (Cardiothoracic Vascular Surgery) | DX: I89.0 Lymphedema, not elsewhere classified (principal); L97.821 Non-pressure chronic ulcer of other part of left lower leg limited to breakdown of skin; Z09 Encounter for follow-up examination after completed treatment for conditions other than malignant neoplasm | CPT/HCPCS: 97597; A6251 ==

== ENCOUNTER → 2024-02-09 13:40 | Outpatient (BNVA) | payer MEDICAID, SELFPAY | PROVIDERS: PCP Family Medicine; Visit Provider Thoracic Surgery (Cardiothoracic Vascular Surgery) | DX: I96 Gangrene, not elsewhere classified (principal); I89.0 Lymphedema, not elsewhere classified; L97.821 Non-pressure chronic ulcer of other part of left lower leg limited to breakdown of skin; S81.812D Laceration without foreign body, left lower leg, subsequent encounter; X58.XXXD Exposure to other specified factors, subsequent encounter | CPT/HCPCS: 97597; A6252 ==

== ENCOUNTER → 2024-02-16 11:16 | Outpatient (BNVA) | payer MEDICAID, SELFPAY | PROVIDERS: PCP Family Medicine; Visit Provider Thoracic Surgery (Cardiothoracic Vascular Surgery) | DX: I96 Gangrene, not elsewhere classified (principal); I89.0 Lymphedema, not elsewhere classified; L97.821 Non-pressure chronic ulcer of other part of left lower leg limited to breakdown of skin; S81.812D Laceration without foreign body, left lower leg, subsequent encounter; X58.XXXD Exposure to other specified factors, subsequent encounter | CPT/HCPCS: 97597; A6252 ==

== ENCOUNTER → 2024-02-23 10:51 | Outpatient (BNVA) | payer MEDICAID, SELFPAY | PROVIDERS: PCP Family Medicine; Visit Provider Thoracic Surgery (Cardiothoracic Vascular Surgery) | DX: I89.0 Lymphedema, not elsewhere classified (principal); L97.821 Non-pressure chronic ulcer of other part of left lower leg limited to breakdown of skin; S81.812D Laceration without foreign body, left lower leg, subsequent encounter; X58.XXXD Exposure to other specified factors, subsequent encounter | CPT/HCPCS: 97597; A6251 ==

== ENCOUNTER → 2024-03-01 09:59 | Outpatient (BNVA) | payer MEDICAID, SELFPAY | PROVIDERS: PCP Family Medicine; Visit Provider Thoracic Surgery (Cardiothoracic Vascular Surgery) | DX: I96 Gangrene, not elsewhere classified (principal); I89.0 Lymphedema, not elsewhere classified; L97.821 Non-pressure chronic ulcer of other part of left lower leg limited to breakdown of skin; Z09 Encounter for follow-up examination after completed treatment for conditions other than malignant neoplasm | CPT/HCPCS: 97597; A6252 ==

== ENCOUNTER → 2024-03-15 09:39 | Outpatient (BNVA) | payer MEDICAID, SELFPAY | PROVIDERS: PCP Family Medicine; Visit Provider Thoracic Surgery (Cardiothoracic Vascular Surgery) | DX: I89.0 Lymphedema, not elsewhere classified (principal); L97.821 Non-pressure chronic ulcer of other part of left lower leg limited to breakdown of skin | CPT/HCPCS: 97597 ==

== ENCOUNTER → 2024-03-22 13:04 | Outpatient (BNVA) | payer MEDICAID, SELFPAY | PROVIDERS: PCP Family Medicine; Visit Provider Thoracic Surgery (Cardiothoracic Vascular Surgery) | DX: I89.0 Lymphedema, not elsewhere classified (principal); L97.822 Non-pressure chronic ulcer of other part of left lower leg with fat layer exposed | CPT/HCPCS: 97597; A6251 ==

== ENCOUNTER → 2024-03-29 10:33 | Outpatient (BNVA) | payer MEDICAID, SELFPAY | PROVIDERS: PCP Family Medicine; Visit Provider Thoracic Surgery (Cardiothoracic Vascular Surgery) | DX: I89.0 Lymphedema, not elsewhere classified (principal); Z91.199 Patient's noncompliance with other medical treatment and regimen due to unspecified reason | CPT/HCPCS: 29581; A6251 ==

== ENCOUNTER → 2024-04-05 13:29 | Outpatient (BNVA) | payer MEDICAID, SELFPAY | PROVIDERS: PCP Family Medicine; Visit Provider Thoracic Surgery (Cardiothoracic Vascular Surgery) | DX: I89.0 Lymphedema, not elsewhere classified (principal); L97.821 Non-pressure chronic ulcer of other part of left lower leg limited to breakdown of skin | CPT/HCPCS: 97597; A6252 ==

== ENCOUNTER → 2024-04-12 13:06 | Outpatient (BNVA) | payer MEDICAID, SELFPAY | PROVIDERS: PCP Family Medicine; Visit Provider Thoracic Surgery (Cardiothoracic Vascular Surgery) | DX: I89.0 Lymphedema, not elsewhere classified (principal); L97.421 Non-pressure chronic ulcer of left heel and midfoot limited to breakdown of skin | CPT/HCPCS: 97597 ==

== ENCOUNTER → 2024-04-19 13:02 | Outpatient (BNVA) | payer MEDICAID, SELFPAY | PROVIDERS: PCP Family Medicine; Visit Provider Thoracic Surgery (Cardiothoracic Vascular Surgery) | DX: I89.0 Lymphedema, not elsewhere classified (principal); L97.821 Non-pressure chronic ulcer of other part of left lower leg limited to breakdown of skin | CPT/HCPCS: 97597; A6252 ==

== ENCOUNTER → 2024-04-26 13:02 | Outpatient (BNVA) | payer MEDICAID, SELFPAY | PROVIDERS: PCP Family Medicine; Visit Provider Thoracic Surgery (Cardiothoracic Vascular Surgery) | DX: I89.0 Lymphedema, not elsewhere classified (principal); L97.821 Non-pressure chronic ulcer of other part of left lower leg limited to breakdown of skin | CPT/HCPCS: 97597; A6251 ==

== ENCOUNTER → 2024-05-24 13:52 | Outpatient (BNVA) | payer MEDICAID, SELFPAY | PROVIDERS: PCP Family Medicine; Visit Provider Thoracic Surgery (Cardiothoracic Vascular Surgery) | DX: I89.0 Lymphedema, not elsewhere classified (principal); L97.811 Non-pressure chronic ulcer of other part of right lower leg limited to breakdown of skin; L97.821 Non-pressure chronic ulcer of other part of left lower leg limited to breakdown of skin | CPT/HCPCS: 97597; A6197; A6252 ==

== ENCOUNTER → 2024-06-07 14:13 | Outpatient (BNVA) | payer MEDICAID, SELFPAY | PROVIDERS: PCP Family Medicine; Visit Provider Thoracic Surgery (Cardiothoracic Vascular Surgery) | DX: I89.0 Lymphedema, not elsewhere classified (principal); I87.2 Venous insufficiency (chronic) (peripheral); L97.811 Non-pressure chronic ulcer of other part of right lower leg limited to breakdown of skin; L97.821 Non-pressure chronic ulcer of other part of left lower leg limited to breakdown of skin | CPT/HCPCS: 97597; A6197; A6210 ==

== ENCOUNTER → 2024-06-14 14:28 | Outpatient (BNVA) | payer MEDICAID, SELFPAY | PROVIDERS: PCP Family Medicine; Visit Provider Thoracic Surgery (Cardiothoracic Vascular Surgery) | DX: I89.0 Lymphedema, not elsewhere classified (principal); L97.821 Non-pressure chronic ulcer of other part of left lower leg limited to breakdown of skin; Z09 Encounter for follow-up examination after completed treatment for conditions other than malignant neoplasm | CPT/HCPCS: 97597; A6197; A6252 ==

== ENCOUNTER → 2024-06-28 13:45 | Outpatient (BNVA) | payer MEDICAID, SELFPAY | PROVIDERS: PCP Family Medicine; Visit Provider Thoracic Surgery (Cardiothoracic Vascular Surgery) | DX: I89.0 Lymphedema, not elsewhere classified (principal); L97.821 Non-pressure chronic ulcer of other part of left lower leg limited to breakdown of skin | CPT/HCPCS: 97597; A6197; A6252 ==

== ENCOUNTER → 2024-07-12 13:03 | Outpatient (BNVA) | payer MEDICAID, SELFPAY | PROVIDERS: PCP Family Medicine; Visit Provider Thoracic Surgery (Cardiothoracic Vascular Surgery) | DX: I89.0 Lymphedema, not elsewhere classified (principal); L97.821 Non-pressure chronic ulcer of other part of left lower leg limited to breakdown of skin | CPT/HCPCS: 97597; A6197 ==

== ENCOUNTER → 2024-07-19 10:49 | Outpatient (BNVA) | payer MEDICAID, SELFPAY | PROVIDERS: PCP Family Medicine; Visit Provider Thoracic Surgery (Cardiothoracic Vascular Surgery) | DX: I89.0 Lymphedema, not elsewhere classified (principal); L97.821 Non-pressure chronic ulcer of other part of left lower leg limited to breakdown of skin | CPT/HCPCS: 97597; A6197 ==

== ENCOUNTER → 2024-07-26 10:45 | Outpatient (BNVA) | payer MEDICAID, SELFPAY | PROVIDERS: PCP Family Medicine; Visit Provider Thoracic Surgery (Cardiothoracic Vascular Surgery) | DX: I96 Gangrene, not elsewhere classified (principal); I89.0 Lymphedema, not elsewhere classified; L97.821 Non-pressure chronic ulcer of other part of left lower leg limited to breakdown of skin | CPT/HCPCS: 97597; A6197 ==

== ENCOUNTER → 2024-08-09 10:35 | Outpatient (BNVA) | payer MEDICAID, SELFPAY | PROVIDERS: PCP Family Medicine; Visit Provider Thoracic Surgery (Cardiothoracic Vascular Surgery) | DX: I96 Gangrene, not elsewhere classified (principal); I89.0 Lymphedema, not elsewhere classified; L97.821 Non-pressure chronic ulcer of other part of left lower leg limited to breakdown of skin | CPT/HCPCS: 97597; A6197 ==

== ENCOUNTER → 2024-08-16 10:45 | Outpatient (BNVA) | payer MEDICAID, SELFPAY | PROVIDERS: PCP Family Medicine; Visit Provider Thoracic Surgery (Cardiothoracic Vascular Surgery) | DX: I96 Gangrene, not elsewhere classified (principal); I89.0 Lymphedema, not elsewhere classified; L97.821 Non-pressure chronic ulcer of other part of left lower leg limited to breakdown of skin | CPT/HCPCS: 97597; A6248 ==

== ENCOUNTER → 2024-08-23 10:00 | Outpatient (BNVA) | payer MEDICAID, SELFPAY | PROVIDERS: PCP Family Medicine; Visit Provider Thoracic Surgery (Cardiothoracic Vascular Surgery) | DX: I96 Gangrene, not elsewhere classified (principal); I89.0 Lymphedema, not elsewhere classified; L97.821 Non-pressure chronic ulcer of other part of left lower leg limited to breakdown of skin | CPT/HCPCS: 97597; A6197; A6252 ==

== ENCOUNTER → 2024-09-13 13:35 | Outpatient (BNVA) | payer MEDICAID, SELFPAY | PROVIDERS: PCP Family Medicine; Visit Provider Thoracic Surgery (Cardiothoracic Vascular Surgery) | DX: I87.2 Venous insufficiency (chronic) (peripheral) (principal); I89.0 Lymphedema, not elsewhere classified; L97.821 Non-pressure chronic ulcer of other part of left lower leg limited to breakdown of skin | CPT/HCPCS: 97597; 97598 ==

== ENCOUNTER → 2024-09-20 13:58 | Outpatient (BNVA) | payer MEDICAID, SELFPAY | PROVIDERS: PCP Family Medicine; Visit Provider Thoracic Surgery (Cardiothoracic Vascular Surgery) | DX: I89.0 Lymphedema, not elsewhere classified (principal); I87.2 Venous insufficiency (chronic) (peripheral); L97.822 Non-pressure chronic ulcer of other part of left lower leg with fat layer exposed | CPT/HCPCS: 11042; 11045; 97597; A6197; A6253 ==

== ENCOUNTER → 2024-10-04 14:38 | Outpatient (BNVA) | payer MEDICAID, SELFPAY | PROVIDERS: PCP Family Medicine; Visit Provider Thoracic Surgery (Cardiothoracic Vascular Surgery) | DX: I96 Gangrene, not elsewhere classified (principal); I89.0 Lymphedema, not elsewhere classified; L97.822 Non-pressure chronic ulcer of other part of left lower leg with fat layer exposed; Z09 Encounter for follow-up examination after completed treatment for conditions other than malignant neoplasm | CPT/HCPCS: 11042; 11045; 87070; 87176; 87205; 97597; A6197; A6253 ==

== ENCOUNTER → 2024-10-11 15:00 | Outpatient (BNVA) | payer MEDICAID, SELFPAY | PROVIDERS: PCP Family Medicine; Visit Provider Thoracic Surgery (Cardiothoracic Vascular Surgery) | DX: I96 Gangrene, not elsewhere classified (principal); I89.0 Lymphedema, not elsewhere classified; L97.821 Non-pressure chronic ulcer of other part of left lower leg limited to breakdown of skin; Z09 Encounter for follow-up examination after completed treatment for conditions other than malignant neoplasm | CPT/HCPCS: 11042; 11045; A6197; A6253 ==

== ENCOUNTER → 2024-10-25 13:38 | Outpatient (BNVA) | payer MEDICAID, SELFPAY | PROVIDERS: PCP Family Medicine; Visit Provider Thoracic Surgery (Cardiothoracic Vascular Surgery) | DX: I96 Gangrene, not elsewhere classified (principal); I89.0 Lymphedema, not elsewhere classified; L97.822 Non-pressure chronic ulcer of other part of left lower leg with fat layer exposed; L97.811 Non-pressure chronic ulcer of other part of right lower leg limited to breakdown of skin | CPT/HCPCS: 11042; 11045; 87070; 87176; 87205; 97597; A6197; A6253 ==

== ENCOUNTER → 2024-11-08 11:23 | Outpatient (BNVA) | payer MEDICAID, SELFPAY | PROVIDERS: PCP Family Medicine; Visit Provider Thoracic Surgery (Cardiothoracic Vascular Surgery) | DX: I96 Gangrene, not elsewhere classified (principal); I89.0 Lymphedema, not elsewhere classified; L97.822 Non-pressure chronic ulcer of other part of left lower leg with fat layer exposed; L97.811 Non-pressure chronic ulcer of other part of right lower leg limited to breakdown of skin | CPT/HCPCS: 11042; 11045; 97597; A6197; A6252 ==

== ENCOUNTER → 2024-11-15 13:00 | Outpatient (BNVA) | payer MEDICAID, SELFPAY | PROVIDERS: PCP Family Medicine; Visit Provider Thoracic Surgery (Cardiothoracic Vascular Surgery) | DX: I96 Gangrene, not elsewhere classified (principal); I89.0 Lymphedema, not elsewhere classified; L97.821 Non-pressure chronic ulcer of other part of left lower leg limited to breakdown of skin; Z09 Encounter for follow-up examination after completed treatment for conditions other than malignant neoplasm | CPT/HCPCS: 11042; 11045; A6197; A6253 ==

== ENCOUNTER → 2024-11-22 11:15 | Outpatient (BNVA) | payer MEDICAID, SELFPAY | PROVIDERS: PCP Family Medicine; Visit Provider Thoracic Surgery (Cardiothoracic Vascular Surgery) | DX: I96 Gangrene, not elsewhere classified (principal); I89.0 Lymphedema, not elsewhere classified; L97.822 Non-pressure chronic ulcer of other part of left lower leg with fat layer exposed | CPT/HCPCS: 11042; 11045; A6197; A6253 ==

== ENCOUNTER → 2024-12-13 11:13 | Outpatient (BNVA) | payer MEDICAID, SELFPAY | PROVIDERS: PCP Family Medicine; Visit Provider Thoracic Surgery (Cardiothoracic Vascular Surgery) | DX: I96 Gangrene, not elsewhere classified (principal); I89.0 Lymphedema, not elsewhere classified; L97.822 Non-pressure chronic ulcer of other part of left lower leg with fat layer exposed | CPT/HCPCS: 11042; 11045; A6197; A6252 ==

== ENCOUNTER → 2024-12-20 15:08 | Outpatient (BNVA) | payer MEDICAID, SELFPAY | PROVIDERS: PCP Family Medicine; Visit Provider Thoracic Surgery (Cardiothoracic Vascular Surgery) | DX: I96 Gangrene, not elsewhere classified (principal); I89.0 Lymphedema, not elsewhere classified; L97.821 Non-pressure chronic ulcer of other part of left lower leg limited to breakdown of skin | CPT/HCPCS: 97597; 97598; A6197; A6252 ==

== ENCOUNTER → 2025-01-03 13:56 | Outpatient (BNVA) | payer MEDICAID, SELFPAY | PROVIDERS: PCP Family Medicine; Visit Provider Thoracic Surgery (Cardiothoracic Vascular Surgery) | DX: I96 Gangrene, not elsewhere classified (principal); I89.0 Lymphedema, not elsewhere classified; L97.822 Non-pressure chronic ulcer of other part of left lower leg with fat layer exposed; L97.812 Non-pressure chronic ulcer of other part of right lower leg with fat layer exposed | CPT/HCPCS: 11042; 97597; A6197; A6253 ==

== ENCOUNTER → 2025-01-10 13:22 | Outpatient (BNVA) | payer MEDICAID, SELFPAY | PROVIDERS: PCP Family Medicine; Visit Provider Thoracic Surgery (Cardiothoracic Vascular Surgery) | DX: I96 Gangrene, not elsewhere classified (principal); I89.0 Lymphedema, not elsewhere classified; L97.821 Non-pressure chronic ulcer of other part of left lower leg limited to breakdown of skin; L97.811 Non-pressure chronic ulcer of other part of right lower leg limited to breakdown of skin | CPT/HCPCS: 97597; 97598; A6197; A6252 ==

== ENCOUNTER → 2025-01-17 13:56 | Outpatient (BNVA) | payer MEDICAID, SELFPAY | PROVIDERS: PCP Family Medicine | DX: I96 Gangrene, not elsewhere classified (principal); I89.0 Lymphedema, not elsewhere classified; L97.822 Non-pressure chronic ulcer of other part of left lower leg with fat layer exposed; L97.811 Non-pressure chronic ulcer of other part of right lower leg limited to breakdown of skin | CPT/HCPCS: 11042; 11045; 87070; 87176; 87205; A6197; A6252; A6253 ==

== ENCOUNTER → 2025-01-20 09:55 | Outpatient (BNVA) | payer MEDICAID, SELFPAY | PROVIDERS: PCP Family Medicine; Visit Provider Family Medicine | DX: I10 Essential (primary) hypertension (principal); I73.9 Peripheral vascular disease, unspecified; E78.5 Hyperlipidemia, unspecified; E66.9 Obesity, unspecified; G47.33 Obstructive sleep apnea (adult) (pediatric); E03.9 Hypothyroidism, unspecified | CPT/HCPCS: 80053; 82306; 82607; 83036; 84443; 85025 ==

== ENCOUNTER → 2025-01-23 14:02 | Outpatient (BNVA) | payer MEDICAID, SELFPAY | PROVIDERS: PCP Family Medicine; Visit Provider Thoracic Surgery (Cardiothoracic Vascular Surgery) | DX: I96 Gangrene, not elsewhere classified (principal); I89.0 Lymphedema, not elsewhere classified; L97.822 Non-pressure chronic ulcer of other part of left lower leg with fat layer exposed | CPT/HCPCS: 11042; 97597; A6197; A6252 ==

== ENCOUNTER → 2025-02-06 14:40 | Outpatient (BNVA) | payer MEDICAID, SELFPAY | PROVIDERS: PCP Family Medicine | DX: I96 Gangrene, not elsewhere classified (principal); I89.0 Lymphedema, not elsewhere classified; L97.822 Non-pressure chronic ulcer of other part of left lower leg with fat layer exposed; Z09 Encounter for follow-up examination after completed treatment for conditions other than malignant neoplasm | CPT/HCPCS: 11042; 11045 ==

== ENCOUNTER → 2025-02-13 14:13 | Outpatient (BNVA) | payer MEDICAID, SELFPAY | PROVIDERS: PCP Family Medicine; Visit Provider Thoracic Surgery (Cardiothoracic Vascular Surgery) | DX: I96 Gangrene, not elsewhere classified (principal); I89.0 Lymphedema, not elsewhere classified; L97.822 Non-pressure chronic ulcer of other part of left lower leg with fat layer exposed | CPT/HCPCS: 11042; A6197 ==

== ENCOUNTER → 2025-02-20 14:36 | Outpatient (BNVA) | payer MEDICAID, SELFPAY | PROVIDERS: PCP Family Medicine; Visit Provider Thoracic Surgery (Cardiothoracic Vascular Surgery) | DX: I96 Gangrene, not elsewhere classified (principal); I89.0 Lymphedema, not elsewhere classified; L97.821 Non-pressure chronic ulcer of other part of left lower leg limited to breakdown of skin | CPT/HCPCS: 97597; 97598; A6197; A6252 ==

== ENCOUNTER → 2025-03-09 14:35 | Outpatient (BNVA) | payer MEDICAID, SELFPAY | PROVIDERS: PCP Family Medicine; Visit Provider Thoracic Surgery (Cardiothoracic Vascular Surgery) | DX: I96 Gangrene, not elsewhere classified (principal); I89.0 Lymphedema, not elsewhere classified; L97.822 Non-pressure chronic ulcer of other part of left lower leg with fat layer exposed | CPT/HCPCS: 97597; 97598; A6197; A6253 ==

== ENCOUNTER → 2025-03-24 10:54 | Outpatient (BNVA) | payer MEDICAID, SELFPAY | PROVIDERS: PCP Family Medicine; Visit Provider Thoracic Surgery (Cardiothoracic Vascular Surgery) | DX: I96 Gangrene, not elsewhere classified (principal); I89.0 Lymphedema, not elsewhere classified; L97.822 Non-pressure chronic ulcer of other part of left lower leg with fat layer exposed | CPT/HCPCS: 97597; 97598; A6197; A6253 ==

== ENCOUNTER → 2025-04-11 14:12 | Outpatient (BNVA) | payer MEDICAID, SELFPAY | PROVIDERS: PCP Family Medicine; Visit Provider Thoracic Surgery (Cardiothoracic Vascular Surgery) | DX: I96 Gangrene, not elsewhere classified (principal); I89.0 Lymphedema, not elsewhere classified; L97.821 Non-pressure chronic ulcer of other part of left lower leg limited to breakdown of skin | CPT/HCPCS: 97597; 97598; A6197; A6252 ==

== ENCOUNTER → 2025-04-18 14:40 | Outpatient (BNVA) | payer MEDICAID, SELFPAY | PROVIDERS: PCP Family Medicine; Visit Provider Thoracic Surgery (Cardiothoracic Vascular Surgery) | DX: I96 Gangrene, not elsewhere classified (principal); I89.0 Lymphedema, not elsewhere classified; L97.821 Non-pressure chronic ulcer of other part of left lower leg limited to breakdown of skin; L97.811 Non-pressure chronic ulcer of other part of right lower leg limited to breakdown of skin | CPT/HCPCS: 29581; 97597; 97598 ==

== ENCOUNTER → 2025-05-11 15:01 | Outpatient (BNVA) | payer MEDICAID, SELFPAY | PROVIDERS: PCP Family Medicine; Visit Provider Thoracic Surgery (Cardiothoracic Vascular Surgery) | DX: I96 Gangrene, not elsewhere classified (principal); I89.0 Lymphedema, not elsewhere classified; L97.821 Non-pressure chronic ulcer of other part of left lower leg limited to breakdown of skin; Z09 Encounter for follow-up examination after completed treatment for conditions other than malignant neoplasm | CPT/HCPCS: 97597; 97598; A6197; A6252 ==

== ENCOUNTER → 2025-05-18 13:01 | Outpatient (BNVA) | payer MEDICAID, SELFPAY | PROVIDERS: PCP Family Medicine; Visit Provider Thoracic Surgery (Cardiothoracic Vascular Surgery) | DX: I96 Gangrene, not elsewhere classified (principal); I89.0 Lymphedema, not elsewhere classified; L97.821 Non-pressure chronic ulcer of other part of left lower leg limited to breakdown of skin | CPT/HCPCS: 97597; 97598; A6197; A6253 ==

== ENCOUNTER → 2025-06-08 13:51 | Outpatient (BNVA) | payer MEDICAID, SELFPAY | PROVIDERS: PCP Family Medicine; Visit Provider Thoracic Surgery (Cardiothoracic Vascular Surgery) | DX: I96 Gangrene, not elsewhere classified (principal); I89.0 Lymphedema, not elsewhere classified; L97.821 Non-pressure chronic ulcer of other part of left lower leg limited to breakdown of skin | CPT/HCPCS: 97597; A6197; A6253 ==

== ENCOUNTER → 2025-06-13 13:33 | Outpatient (BNVA) | payer MEDICAID, SELFPAY | PROVIDERS: PCP Family Medicine; Visit Provider Thoracic Surgery (Cardiothoracic Vascular Surgery) | DX: I96 Gangrene, not elsewhere classified (principal); I89.0 Lymphedema, not elsewhere classified; L97.821 Non-pressure chronic ulcer of other part of left lower leg limited to breakdown of skin | CPT/HCPCS: 97597; A6253 ==

== ENCOUNTER → 2025-06-20 14:07 | Outpatient (BNVA) | payer MEDICAID, SELFPAY | PROVIDERS: PCP Family Medicine; Visit Provider Thoracic Surgery (Cardiothoracic Vascular Surgery) | DX: I96 Gangrene, not elsewhere classified (principal); I89.0 Lymphedema, not elsewhere classified; L97.821 Non-pressure chronic ulcer of other part of left lower leg limited to breakdown of skin | CPT/HCPCS: 97597 ==

== ENCOUNTER → 2025-07-04 14:04 | Outpatient (BNVA) | payer MEDICAID, SELFPAY | PROVIDERS: PCP Family Medicine; Visit Provider Thoracic Surgery (Cardiothoracic Vascular Surgery) | DX: I96 Gangrene, not elsewhere classified (principal); I89.0 Lymphedema, not elsewhere classified; L97.821 Non-pressure chronic ulcer of other part of left lower leg limited to breakdown of skin | CPT/HCPCS: 97597; A6252 ==

== ENCOUNTER → 2025-07-11 14:00 | Outpatient (BNVA) | payer MEDICAID, SELFPAY | PROVIDERS: PCP Family Medicine; Visit Provider Thoracic Surgery (Cardiothoracic Vascular Surgery) | DX: I96 Gangrene, not elsewhere classified (principal); I89.0 Lymphedema, not elsewhere classified; L97.821 Non-pressure chronic ulcer of other part of left lower leg limited to breakdown of skin | CPT/HCPCS: 97597; A6252 ==

== ENCOUNTER → 2025-07-24 13:02 | Outpatient (BNVA) | payer MEDICAID, SELFPAY | PROVIDERS: PCP Family Medicine; Visit Provider Thoracic Surgery (Cardiothoracic Vascular Surgery) | DX: I96 Gangrene, not elsewhere classified (principal); I89.0 Lymphedema, not elsewhere classified; L97.821 Non-pressure chronic ulcer of other part of left lower leg limited to breakdown of skin | CPT/HCPCS: 97597; 97598; A6253 ==

== ENCOUNTER → 2025-08-07 14:12 | Outpatient (BNVA) | payer MEDICAID, SELFPAY | PROVIDERS: PCP Family Medicine; Visit Provider Thoracic Surgery (Cardiothoracic Vascular Surgery) | DX: I96 Gangrene, not elsewhere classified (principal); I89.0 Lymphedema, not elsewhere classified; L97.821 Non-pressure chronic ulcer of other part of left lower leg limited to breakdown of skin | CPT/HCPCS: 97597; 97598; A6253 ==

== ENCOUNTER → 2025-08-15 13:48 | Outpatient (BNVA) | payer MEDICAID, SELFPAY | PROVIDERS: PCP Family Medicine; Visit Provider Thoracic Surgery (Cardiothoracic Vascular Surgery) | DX: I96 Gangrene, not elsewhere classified (principal); I89.0 Lymphedema, not elsewhere classified; L97.821 Non-pressure chronic ulcer of other part of left lower leg limited to breakdown of skin | CPT/HCPCS: 97597; 97598; A6253 ==

== ENCOUNTER → 2025-08-21 13:59 | Outpatient (BNVA) | payer MEDICAID, SELFPAY | PROVIDERS: PCP Family Medicine; Visit Provider Thoracic Surgery (Cardiothoracic Vascular Surgery) | DX: I96 Gangrene, not elsewhere classified (principal); I89.0 Lymphedema, not elsewhere classified; L97.822 Non-pressure chronic ulcer of other part of left lower leg with fat layer exposed | CPT/HCPCS: 97597; A6253 ==

== ENCOUNTER → 2025-09-04 13:48 | Outpatient (BNVA) | payer MEDICAID, SELFPAY | PROVIDERS: PCP Family Medicine; Visit Provider Thoracic Surgery (Cardiothoracic Vascular Surgery) | DX: I96 Gangrene, not elsewhere classified (principal); I89.0 Lymphedema, not elsewhere classified; L97.821 Non-pressure chronic ulcer of other part of left lower leg limited to breakdown of skin | CPT/HCPCS: 97597; A6252 ==

== ENCOUNTER → 2025-10-11 13:48 | Outpatient (BNVA) | payer MEDICAID, SELFPAY | PROVIDERS: PCP Family Medicine; Visit Provider Thoracic Surgery (Cardiothoracic Vascular Surgery) | DX: I96 Gangrene, not elsewhere classified (principal); I89.0 Lymphedema, not elsewhere classified; L97.821 Non-pressure chronic ulcer of other part of left lower leg limited to breakdown of skin | CPT/HCPCS: 97597; A6219 ==

== ENCOUNTER → 2025-10-16 14:58 | Outpatient (BNVA) | payer MEDICAID, SELFPAY | PROVIDERS: PCP Family Medicine; Visit Provider Thoracic Surgery (Cardiothoracic Vascular Surgery) | DX: I96 Gangrene, not elsewhere classified (principal); I89.0 Lymphedema, not elsewhere classified; L97.821 Non-pressure chronic ulcer of other part of left lower leg limited to breakdown of skin | CPT/HCPCS: 97597; A6252 ==

== ENCOUNTER → 2025-10-24 14:23 | Outpatient (BNVA) | payer MEDICAID, SELFPAY | PROVIDERS: PCP Family Medicine; Visit Provider Thoracic Surgery (Cardiothoracic Vascular Surgery) | DX: I96 Gangrene, not elsewhere classified (principal); I89.0 Lymphedema, not elsewhere classified; L97.822 Non-pressure chronic ulcer of other part of left lower leg with fat layer exposed | CPT/HCPCS: 97597; A6210 ==